=== PATIENT | female | born 1945 | race Caucasian/White ===

== ENCOUNTER 2019-02-02 15:02 | Outpatient (CLI) | payer MEDICARE ==
--- NOTE | 2019-02-02 15:47 | MMO ---
Bilateral MAMMO Bilat Screen [facility]. CLINICAL HISTORY: Patient is 73 years old and is seen for screening. The patient has the following family history of breast cancer: maternal aunt, great. The patient has a history of malignant (generic) in the right breast at age 54. The patient has a history of right Lumpectomy at age 54 - malignant. VIEWS: The views performed were: bilateral craniocaudal with tomosynthesis and bilateral mediolateral oblique with tomosynthesis. FILMS COMPARED: The present examination has been compared to prior imaging studies performed at [facility] on 02/20/2010 and 01/11/2012. This study has been interpreted with the assistance of computer-aided detection. MAMMOGRAM FINDINGS: The breasts are almost entirely fat. Finding 1: There are stable post operative changes seen in the right breast. Finding 2: There are stable benign appearing calcifications seen in both breasts. There are no suspicious masses, suspicious calcifications, or new areas of architectural distortion. IMPRESSION: THERE IS NO MAMMOGRAPHIC EVIDENCE OF MALIGNANCY. A ROUTINE FOLLOW-UP MAMMOGRAM IN 1 YEAR IS RECOMMENDED. THE RESULTS OF THIS EXAM WERE SENT TO THE PATIENT. ACR BI-RADS Category 2 - Benign finding MAMMOGRAPHY NOTE: 1. A negative mammogram report should not delay a biopsy if a dominant of clinically suspicious mass is present. 2. Approximately 10% to 15% of breast cancers are not detected by mammography. 3. Adenosis and dense breasts may obscure an underlying neoplasm. Reported by: MELLY DAWSON MD Electonically Signed: [id number]
== END 2019-02-02 15:03 | disposition home or self-care (01) ==
LOC: BICMAMMO 15:02
PROVIDERS: ATTEND Family Medicine
DX: Z12.31 Encounter for screening mammogram for malignant neoplasm of breast (principal); Z85.3 Personal history of malignant neoplasm of breast; Z80.3 Family history of malignant neoplasm of breast
CPT/HCPCS: 77063; 77067

== ENCOUNTER 2020-01-31 19:52 | Inpatient (IN) | payer MEDICARE ==
--- NOTE | 2020-01-31 21:08 | PDOC.HHP ---
Hospitalist HPI - History of Present Illness Fever History of Present Illness: PCP; Dr. Geoff Olivas The patient is a 74-year-old female with a past medical history significant for cardiac arrhythmia (SVT/atrial tachycardia), DM 2, hypothyroidism and lymphedema that presents to the emergency department via EMS as a transfer from [facility] for possible Covid pneumonia. The patient reports experiencing flulike symptoms for the past several days. She reports fever, T-max 102 Fahrenheit 2 days ago. Since her temperature has been trending down. Reports headache, all over, denies any known trauma, neck stiffness, changes in vision or focal motor weakness. Denies any known sick contacts. Reports nonproductive cough, and intermittent shortness of breath. Denies any wheezing, no history COPD/asthma. Reports anorexia, nausea and diarrhea. Reports 3-4 BMs per day. Denies any recent travel, hospitalization or antibiotics usage. Reports scant bright red blood on her briefs. Denies abdominal pain, vomiting, hematemesis or melena, lightheadedness or chest pain. She is not on any anticoagulation. Denies any chest pain, heart palpitations. Has chronic swelling to her lower extremities. Denies any dysuria or hematuria. ED Course: [place] [facility]: VITAL SIGNS WedJan 31, 2020 20:25 CURRY Mabry Miranda Resp: 20, Pain: 0, Time: 01/31/2020 20:25. VITAL SIGNS WedJan 31, 2020 20:29 CURRY Mabry Miranda Pulse: 113, Resp: 20, Pain: 0, O2 sat: 95 on (2L Oxygen), Time: 01/31/2020 20:29. VITAL SIGNS WedJan 31, 2020 20:29 CURRY Mabry Miranda Temp: 99.1 (Oral), Time: 01/31/2020 20:29. VITAL SIGNS WedJan 31, 2020 20:29 CURRY Mabry Miranda BP: 143/94, Time: 01/31/2020 20:29. VITAL SIGNS WedJan 31, 2020 21:04 CURRY Ricks Julia BP: 140/86, Pulse: 111, Resp: 20, Pain: 0, O2 sat: 97 on (2L Oxygen), Time: 01/31/2020 21:04. Medications: None Hospitalist ROS - Review of Systems All other systems reviewed; all pertinent +/- noted in HPI/Subj - Medication Medications: 1. Glyburide unknown dose 2. Januvia unknown dose 3. Metformin unknown dose 4. Levothyroxine 100 mcg p.o. daily 5. Citalopram 20 mg p.o. daily 6. Rosuvastatin 10 mg p.o. daily 7. Atenolol 50 mg p.o. daily. 8. Melatonin 3 mg p.o. nightly Allergies: latex, Mobic, naloxone HCl (Unconfirmed), niacin, Penicillins, pentazocine HCl (Unconfirmed), Talwin Hospitalist History - Past Medical History Source: patient, RN notes reviewed Cardiac: reports: Hyperlipidemia, Other (SVT and atrial tachycardia, venous insufficiency, lymphedema) Musculoskeletal: reports: Osteoarthritis Endocrine: reports: Diabetes (Type II), Hypothyroidism - Past Surgical History Past Surgical History: reports: Cataract Removal (Bilateral), Hysterectomy (Partial), Hernia Repair, Total Knee Replacement (Bilateral), Tubal Ligation, Other (Lumpectomy of right breast status post breast cancer) - Family History Other Family History: Noncontributory to this case - Social History Smoking Status: Former smoker (Quit greater than 30 years ago) Alcohol: reports: None Drugs: reports: none Living Situation: With Family Activity level: independent ambulation - Exam General Appearance: NAD, awake alert. negative: ill appearing Eye: anicteric sclera ENT: normocephalic atraumatic Neck: supple, symmetric Heart: RRR, no murmur, no gallops, no rubs, normal peripheral pulses Respiratory: no wheezes, no ronchi, no tachypnea, rales (Lower lobes) Gastrointestinal: soft, non-tender, normal bowel sounds, no bruit, no guarding, no rigidity Gastrointestinal - other findings: Negative Rovsing sign, negative Garland sign Extremities: no cyanosis, 1+ LE edema (Chronic) Skin: negative: no rashes Skin - other findings: Beneath bilateral breast and groin Neurological: no focal deficits Psychiatric: normal affect, A&O x 3 Hospitalist Results - EKG Interpretation EKG: EKG #1 sinus tachycardia. EKG #2 sinus rhythm - Radiology Interpretation Chest x-ray Status: report reviewed by me Additional Comment: Mild to moderate interstitial infiltrate CT scan - chest Status: pending, report reviewed by me Hospitalist H&P A/P - Problem (1) Pneumonia due to COVID-19 virus Code(s): U07.1 - COVID-19; J12.89 - OTHER VIRAL PNEUMONIA Status: Acute (2) Respiratory failure with hypoxia Code(s): J96.91 - RESPIRATORY FAILURE, UNSPECIFIED WITH HYPOXIA Status: Acute Qualifiers: Chronicity: acute Qualified Code(s): J96.01 - Acute respiratory failure with hypoxia (3) Sepsis Code(s): A41.9 - SEPSIS, UNSPECIFIED ORGANISM Status: Acute (4) DM2 (diabetes mellitus, type 2) Status: Chronic (5) Hypothyroidism Code(s): E03.9 - HYPOTHYROIDISM, UNSPECIFIED Status: Chronic (6) Arrhythmia Code(s): I49.9 - CARDIAC ARRHYTHMIA, UNSPECIFIED Status: Chronic (7) Depression Code(s): F32.9 - MAJOR DEPRESSIVE DISORDER, SINGLE EPISODE, UNSPECIFIED Status: Chronic - Plan Plan: 74/F with H cardiac arrhythmias, DM 2, hypothyroidism presents to the emergency department for Covid pneumonia. Admit to medical, inpatient status. Expected length of stay greater than 2 midnights. Presented hypotensive, tachycardic, tachypneic, hypoxic, afebrile. At [place] ER was 88% room air, 94% 2L NC. EKG sinus tach and sinus rhythm. CXR mild to moderate interstitial infiltrates CTA chest negative for PE, consistent for Covid pneumonia. Troponin 0.014 LA 1.5, DD 1.77, WBC 3.0, CRP 12.01 Blood/urine CX pending Covid positive #Pneumonia due to COVID-19 virus Continue a azithromycin and Rocephin. Continue dexamethasone and Lovenox. Start zinc and vitamin C. Isolation precautions. Consult ID. Oxygen as needed. Gentle IV fluids hydration. # Acute respiratory failure with hypoxia Likely related to problem #1 #Sepsis Likely related to problem #1 #DM2 Hold home oral antihyperglycemics. Start moderate ISS. AC/at bedtime checks. #Hypothyroidism Check TSH. Restart home dose of levothyroxine. #Arrhythmia History SVT and atrial tachycardia. Continue home dose atenolol. #Depression Denies SI/HI. Restart home dose citalopram. Lovenox for DVT prophylaxis. Pepcid for GI prophylaxis. Full code. Discussed the case with Dr. Mika Rodriguez.
[2020-01-31] MEDS ORDERED: Calcium Carbonate 500 MG ChewTAB PO PRN (21:30)
[2020-01-31] MEDS ORDERED: Ondansetron ODT 4 MG TAB PO PRN (21:30)
[2020-01-31] MEDS ORDERED: Ondansetron PF 4 MG/2 ML Vial IVP PRN (21:30)
[2020-01-31] MEDS ORDERED: Sodium Chloride 0.9% 1,000 ML IV SCH (21:30)
[2020-01-31 22:10] LABS: SARS-CoV-2 NAA Rapid Test DETECTED (NotDetected)
[2020-01-31] MEDS ORDERED: Dextrose 50% Abboject 50 ML SYRINGE SLOW IVP PRN (22:19)
[2020-01-31] MEDS ORDERED: Dextrose 5% in Water 1,000 ML IV PRN (22:19)
[2020-01-31 22:27] LABS: Troponin I 0.021 ng/mL (< 0.028)
[2020-01-31] MEDS ORDERED: Magnesium 2 GM/50 ML 2 GM in Premix Bag 1 BAG IVPB SCH (23:00)
[2020-02-01 02:11] LABS: Troponin I 0.013 ng/mL (< 0.028)
[2020-02-01] MEDS: HumaLOG 300 UNITS/3 ML VIAL SC PRN ×4 (06:43→21:36)
[2020-02-01 06:45] LABS: Mean Corpuscular HGB CONC 33.1 g/dL (32.0-36.0); Mean Corpuscular Hemoglobin 31.1 pg (27.0-31.0); Mean Corpuscular Volume 93.9 fL (78.0-98.0); Mean Platelet Volume 7.8 fL (7.4-10.4); Platelet Count 132 thou/uL (130-400); RBC Distribution Width 14.1 % (11.5-14.5); Red Blood Cell (RBC) Count 3.55 mill/uL (4.20-5.40); White Blood Cell (WBC) Count 1.6 thou/uL (4.8-10.8)
[2020-02-01 07:01] LABS: Anion Gap 17 mmol/L (10-20); BUN (Urea Nitrogen) 12 mg/dL (9.8-20.1); Calc. Creatinine Clearance 106 mL/min (70-130); Calcium 8.1 mg/dL (7.8-10.44); Carbon Dioxide 21 mmol/L (23-31); Chloride 100 mmol/L (98-107); Glucose 345 mg/dL (83-110); Potassium 3.9 mmol/L (3.5-5.1); Sodium 134 mmol/L (136-145)
[2020-02-01 07:04] LABS: Bacteria/HPF None Seen HPF (None Seen); Bilirubin Negative (Negative); Blood, Urine Negative (Negative); Clarity Clear (Clear); Glucose, Urine (Dipstick) Greater than 1000 mg/dL (Negative); Ketone, Urine 40 mg/dL (Negative); Leukocyte 25 Leu/uL (Negative); Nitrite Negative (Negative); Protein, Urine (Dipstick) Negative (Neg-Trace); RBC/HPF None Seen HPF (0-3); Specific Gravity, Urine 1.028 (1.002-1.036); Squamous Epithelial 0-3 HPF (0-3); Urobilinogen Normal mg/dL (Less than 2)
[2020-02-01 07:09] LABS: Troponin I Less than 0.010 ng/mL (< 0.028)
[2020-02-01] MEDS: Rosuvastatin 10 MG TAB PO SCH (08:35)
[2020-02-01] MEDS: Ascorbic Acid 500 mg Chewable Tablet PO SCH (08:36)
[2020-02-01] MEDS: Famotidine 20 MG TAB PO SCH ×2 (08:36→20:09)
[2020-02-01] MEDS: metFORMIN 500 MG TAB PO SCH ×2 (08:36→16:09)
[2020-02-01] MEDS: Citalopram 20 MG TAB PO SCH (08:36)
[2020-02-01] MEDS: Dexamethasone 4 mg/ml Vial SLOW IVP SCH (08:37)
[2020-02-01] MEDS: Enoxaparin Sodium 40 MG/0.4 ML SYRINGE SC SCH (08:37)
[2020-02-01] MEDS: Atenolol 50 MG TAB PO SCH (08:42)
[2020-02-01] MEDS ORDERED: Zinc Sulfate 220 MG CAP PO SCH (09:00)
[2020-02-01 09:02] LABS: #Lymphocytes 0.4 thou/uL (1.20-3.40); #Monocytes 0.1 thou/uL (0.11-0.59); #Neutrophils 1.1 thou/uL (1.40-6.50); %Basophils 0.1 % (0.0-1.0); %Eosinophils 0.2 % (0.0-10.0); %Lymphocytes 26.5 % (21.0-51.0); %Monocytes 4.2 % (0.0-10.0)
[2020-02-01 10:20] LABS: Reflex for Review?? YES
[2020-02-01 10:21] LABS: Band 14 % (5-11); Lymphocytes 23 % (21-51); MDiff Complete? YES; Monocytes 7 % (0-10); Neutrophil 54 % (42-75); RBC Morphology Normal; Reactive Lymphocytes 1 % (0-10)
[2020-02-01] MEDS ORDERED: Succinylcholine 200 MG/10 ml SYRINGE FS ONE (14:01)
[2020-02-01] MEDS ORDERED: PROPOFOL 200 MG/20 ML VIAL ONE (14:01)
--- NOTE | 2020-02-01 14:07 | PDOC.HOSPP ---
- Subjective Encounter Date: 02/01/20 Encounter Time: 10:00 Subjective: breathing better on nasal canula no fever now, is amb in room says she does not use assistive devices to mobilize - Objective Vital Signs & Weight: Vital Signs (12 hours) Temp Pulse Resp BP BP Pulse Ox 02/01/20 11:16 97.9 F 80 18 146/71 H 91 L 02/01/20 08:57 98.1 F 104 H 18 137/74 92 L 02/01/20 08:42 101 H 137/74 02/01/20 08:00 92 L 02/01/20 05:00 98.1 F 101 H 19 143/76 H 91 L Weight Weight 235 lb Result Diagrams: 02/01/20 05:55 02/01/20 05:55 Additional Labs: Accuchecks 02/01/20 02/01/20 11:03 06:31 POC Glucose 280 H 340 H Hospitalist ROS - Medication Medications: Active Medications Generic Name Dose Route Start Last Admin Trade Name Freq PRN Reason Stop Dose Admin Ascorbic Acid 1,000 mg 02/01/20 09:00 02/01/20 08:36 Ascorbic Acid 500 Mg Chewable Tablet PO 1,000 mg DAILY ARLEY Administration Atenolol 50 mg 02/01/20 09:00 02/01/20 08:42 Atenolol 50 Mg Tab PO 50 mg DAILY ARLEY Administration Citalopram Hydrobromide 20 mg 02/01/20 09:00 02/01/20 08:36 Citalopram 20 Mg Tab PO 20 mg DAILY ARLEY Administration Dexamethasone 6 mg 02/01/20 09:00 02/01/20 08:37 Dexamethasone 4 Mg/Ml Vial SLOW IVP 6 mg DAILY ARLEY Administration Enoxaparin Sodium 40 mg 02/01/20 09:00 02/01/20 08:37 Enoxaparin Sodium 40 Mg/0.4 Ml Syringe SC 40 mg 0900 ARLEY Administration Famotidine 20 mg 02/01/20 09:00 02/01/20 08:36 Famotidine 20 Mg Tab PO 20 mg BID ARLEY Administration Insulin Human Lispro 0 units 01/31/20 22:19 02/01/20 11:06 Humalog 300 Units/3 Ml Vial SC 6 unit .MODERATE SLIDING SC PRN Administration Moderate Correctional Scale Metformin HCl 1,000 mg 02/01/20 08:00 02/01/20 08:36 Metformin 500 Mg Tab PO 1,000 mg BID-WM ARLEY Administration Rosuvastatin Calcium 10 mg 02/01/20 09:00 02/01/20 08:35 Rosuvastatin 10 Mg Tab PO 10 mg DAILY ARLEY Administration Zinc Sulfate 220 mg 02/01/20 09:00 02/01/20 08:37 Zinc Sulfate 220 Mg Cap PO 220 mg DAILY ARLEY Administration - Exam General Appearance: awake alert Eye: PERRL, anicteric sclera ENT: no oropharyngeal lesions, moist mucosa Neck: supple, no JVD Heart: RRR, no murmur Respiratory: no wheezes, no rales, rhonchi Gastrointestinal: soft, non-tender, non-distended, normal bowel sounds Extremities: no cyanosis, no edema Neurological: cranial nerve grossly intact, no focal deficits Psychiatric: normal affect, A&O x 3 Hosp A/P (1) Pneumonia due to COVID-19 virus Code(s): U07.1 - COVID-19; J12.89 - OTHER VIRAL PNEUMONIA Status: Acute (2) Respiratory failure with hypoxia Code(s): J96.91 - RESPIRATORY FAILURE, UNSPECIFIED WITH HYPOXIA Status: Acute Qualifiers: Chronicity: acute Qualified Code(s): J96.01 - Acute respiratory failure with hypoxia (3) Obesity Code(s): E66.9 - OBESITY, UNSPECIFIED Status: Chronic Qualifiers: Obesity classification: adult class 3 (BMI >= 40) Body mass index: BMI 40.0-44.9 (4) Sepsis Code(s): A41.9 - SEPSIS, UNSPECIFIED ORGANISM Status: Acute Qualifiers: Sepsis acute organ dysfunction status: without acute organ dysfunction (5) DM2 (diabetes mellitus, type 2) Status: Chronic Qualifiers: Diabetes mellitus chcf insulin use: without chcf use (6) Depression Code(s): F32.9 - MAJOR DEPRESSIVE DISORDER, SINGLE EPISODE, UNSPECIFIED Status: Chronic Qualifiers: Depression Type: unspecified Qualified Code(s): F32.9 - Major depressive disorder, single episode, unspecified (7) Hypothyroidism Code(s): E03.9 - HYPOTHYROIDISM, UNSPECIFIED Status: Chronic - Plan is on nasal canula O2, dexamethasone, will start remdesivir (d/w and pharmacist ), alb inhaler one dose lantus for fingerstick >300, start home dose metformin, glimepride, januvia continue atenolol, crestor, citalopram, levothyroixin counselled to ambulate as tolerated, to lay on sides or prone hemostable
[2020-02-01] MEDS ORDERED: Insulin Glargine 20 UNITS in Pre-Filled Syringe 1 EACH SC SCH (15:00)
[2020-02-01] MEDS: Glimepiride 2 MG TAB PO SCH (15:24)
[2020-02-01] MEDS ORDERED: REMDESIVIR (EUA) 200 MG in Sodium Chloride 0.9% 250 ML 210 ML IV SCH (16:00)
[2020-02-01] MEDS: Guaifenesin DM 100-10/5 ML UDCUP PO PRN ×2 (16:09→20:28)
[2020-02-01] MEDS ORDERED: Azithromycin 500 MG in Sodium Chloride 0.9% 250 ML 250 ML IVPB SCH (18:00)
[2020-02-01] MEDS ORDERED: cefTRIAXone\\ROCEPHIN 1 GM in Sodium Chloride 0.9% 100 ML IVPB SCH (18:00)
[2020-02-01] MEDS ORDERED: Melatonin 3 MG TAB PO SCH (21:00)
--- NOTE | 2020-02-01 22:53 | CON ---
DATE OF CONSULTATION: 02/01/2020 REASON FOR CONSULT: COVID pneumonia. 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 She lives with her family in [place] and it appears to be the only affected member thus far. She is on treatment right now and feels dyspneic when she moves about her bed or tries to go to the restroom. No headaches, visual symptoms, sore throat, odynophagia, or dysphagia. Able to eat. Some anosmia. No chest pain. She has quite a bit of anorexia. No abdominal pain. No genitourinary symptoms. No joint symptoms or skin disorder. MEDICAL HISTORY: Obesity, type 2 diabetes, hyperlipidemia, hypothyroidism, and hypertension. ALLERGIES: 1. LATEX. 2. MOBIC. 3. NALOXONE. 4. NIACIN. 5. PENICILLIN. 6. PENTAZOCINE. FAMILY HISTORY: Nobody in the family has been diagnosed with COVID or is ill at this time. CURRENT MEDICATIONS: 1. Alogliptin. 2. Vitamin C. 3. Tenormin. 4. Tums. 5. Celexa. 6. Decadron. 7. Lovenox. 8. Pepcid. 9. Amaryl. 10. Insulin. 11. Synthroid. 12. Glucophage. 13. Zofran. 14. Remdesivir. 15. Crestor. PHYSICAL EXAMINATION: VITAL SIGNS: Normal temperature. She is breathing at 16 to 18 times a minute; O2 saturation was 91 on 2 L, went up to 3 L and went up to 94%, so I will keep her at 3 L for now; and BP 130/76. SKIN: Normal. Has a peripheral IV access. Voiding in the toilet. LYMPHATICS: No lymphadenopathy. HEENT: Noncontributory. LUNGS: Symmetric air entry. No obvious crackles or wheezing. HEART: S1, S2. Regular rate. No murmurs. No S3 or S4. ABDOMEN: Soft. Not distended or tender. No ascites. No bladder distention. EXTREMITIES: No joint inflammatory activity. No edema. Pulses 1+ in dorsalis pedis. NEUROLOGIC: Nonfocal. LABORATORY DATA: White cell count 1.6, hemoglobin 11, platelets 132 with 14% bands, 54% neutrophils, 23% lymphocytes, total neutrophil count 1.1, lymphocyte count 400. The previous neutrophil counts available in the record are within normal limits. Creatinine 0.78, ferritin 217. COVID PCR positive. Urinalysis, [address] angiogram with bilateral patchy ground-glass opacities, upper lobes, middle lobe, right side and lower lobe. ASSESSMENT: 1. Diabetes. 2. Hypertension. 3. Obesity with [id number] COVID pneumonia. Patient is at her 10th day of illness and has started Remdesivir yesterday and she is on Decadron and also Lovenox. We will monitor inflammatory markers daily and D-dimer. Job ID: [id number]
[2020-02-01] MEDS ORDERED: ALPRAZolam 0.25 MG TAB PO PRN (23:08)
[2020-02-02] MEDS: Guaifenesin DM 100-10/5 ML UDCUP PO PRN (02:04)
[2020-02-02] MEDS ORDERED: Lorazepam 2 MG/ML VIAL SLOW IVP SCH (02:15)
--- NOTE | 2020-02-02 02:15 | PDOC.EVN ---
Event Note - Event Note Event Note: Nursing called. Patient increasingly hypoxic and tachypneic, now on high flow, sp02 80s, RR 30s, anxious. Was on NC all day. Will get ABG, CXR and contact RT to manage/titrate high flow NC. Will give small dose ativan.
[2020-02-02 03:08] LABS: Actual Bicarbonate (HCO3a) 19.9 mEq/L (22-28); Base Excess (BEa) -3.6 mEq/L (-2.0 to +3.0); Calcium, Ionized (arterial) 1.11 mmol/L (1.12-1.30); Carboxyhemoglobin (COHb) 0.3 gm% (0.0-3.0); Hemoglobin (Hb) 11.9 g/dL (12.0-16.0); O2 Tension (PaO2), arterial 64.7 mmHg (> 70.0); Potassium - ABG Lab 3.63 mmol/L (3.70-5.30); pH, Arterial 7.43 (7.35-7.45)
[2020-02-02 03:16] LABS: Puncture Site LRA
[2020-02-02] MEDS ORDERED: Furosemide 40 MG/4 ML VIAL SLOW IVP SCH (04:00)
--- NOTE | 2020-02-02 04:00 | PDOC.EVN ---
Event Note - Event Note Event Note: Nursing called. Patient in resp distress. On high flow, RR 42, HR 110, 90% 40L/95%. Assessment patient somnolent, confused, follows commands, s/p ativan. EKG, CXR, ABG. Give lasix 20mg x 1 dose, transfer CCU for Bipap. Discussed with Dr. Mika Rodriguez.
[2020-02-02 05:25] LABS: Actual Bicarbonate (HCO3a) 26.6 mEq/L (22-28); Base Excess (BEa) 0.2 mEq/L (-2.0 to +3.0); CO2 Tension 50.3 mmHg (35.0-45.0); Calcium, Ionized (arterial) 1.11 mmol/L (1.12-1.30); Carboxyhemoglobin (COHb) 0.4 gm% (0.0-3.0); Hemoglobin (Hb) 12.7 g/dL (12.0-16.0); O2 Tension (PaO2), arterial 91.4 mmHg (> 70.0); pH, Arterial 7.34 (7.35-7.45)
[2020-02-02 05:27] LABS: ALV-art Gradient 487.425 mmHg (0-20); Puncture Site LRA
[2020-02-02] MEDS ORDERED: Lorazepam 2 MG/ML VIAL ONE (05:58)
[2020-02-02] MEDS: Lorazepam 2 MG/ML VIAL SLOW IVP PRN ×2 (06:02→07:06)
[2020-02-02] MEDS: HumaLOG 300 UNITS/3 ML VIAL SC PRN ×3 (07:33→15:34)
--- NOTE | 2020-02-02 08:03 | RAD ---
PORTABLE CHEST: HISTORY: Respiratory distress. COMPARISON: 01/31/2020. FINDINGS: Mild cardiomegaly and mild vascular congestion. There is hazy confluent infiltrate throughout the ri ght lung and in the left lower lung. Possible small left effusion. IMPRESSION: Evidence of hazy infiltrate superimposed on mild gastric congestion. POS: OFF
[2020-02-02] MEDS: Levothyroxine Sodium 100 MCG TAB PO SCH (08:32)
[2020-02-02] MEDS: Glimepiride 2 MG TAB PO SCH (08:33)
[2020-02-02] MEDS: Dexamethasone 4 mg/ml Vial SLOW IVP SCH (08:44)
[2020-02-02] MEDS: Enoxaparin Sodium 40 MG/0.4 ML SYRINGE SC SCH (08:44)
[2020-02-02] MEDS ORDERED: Insulin Glargine 20 UNITS in Pre-Filled Syringe 1 EACH SC SCH (08:51)
[2020-02-02] MEDS: Haloperidol Lactate 5 MG/ML VIAL SLOW IVP PRN (09:02)
[2020-02-02] MEDS: Alogliptin 6.25 MG TAB PO SCH (09:58)
[2020-02-02] MEDS: Ascorbic Acid 500 mg Chewable Tablet PO SCH (09:58)
[2020-02-02] MEDS: Citalopram 20 MG TAB PO SCH (09:59)
[2020-02-02] MEDS: Famotidine 20 MG TAB PO SCH ×2 (09:59→22:14)
[2020-02-02] MEDS: Atenolol 50 MG TAB PO SCH (09:59)
[2020-02-02] MEDS: Rosuvastatin 10 MG TAB PO SCH (10:05)
[2020-02-02] MEDS: metFORMIN 500 MG TAB PO SCH (10:41)
[2020-02-02] MEDS: Cefepime 1 GM in Sodium Chloride 0.9% 100 ML IVPB SCH ×2 (10:42→22:51)
[2020-02-02] MEDS: methylPREDNISolone Sod Succ 40 MG VIAL IVP SCH ×2 (11:02→17:25)
--- NOTE | 2020-02-02 13:51 | CON ---
DATE OF CONSULTATION: 02/02/2020 HISTORY OF PRESENT ILLNESS: Eber Mata is a 74-year-old female who has been in hospice for 2 days with progressive respiratory failure secondary to duffy positive pneumonia. She was seen by Infectious Disease yesterday. Last night, she was transferred to the ICU on BiPAP. She is presently on 90% FiO2, low PEEP of 5, saturations are 92%. She is having respiratory drive of at least 30 times a minute. She is clearly in respiratory distress. We are trying to contact family members, still unable to do so. PAST MEDICAL HISTORY: Pertinent for hypothyroidism, hyperlipidemia, high cholesterol, breast cancer, obesity. PREVIOUS SURGERIES: Include right and left knee surgery, tubal ligation, lumpectomy, cataract surgery, mastectomy, cholecystectomy. SOCIAL HISTORY: Tobacco, none. Alcohol, none. HOME MEDICATIONS: Includes 1. Januvia 5. 2. Glimepiride. 3. Lasix. 4. Flexeril. 5. Celexa. 6. Zyrtec. 7. Crestor. 8. Melatonin. 9. Synthroid. 10. She is now getting remdesivir as of this morning. She is already on high-dose steroids. ALLERGIES: PENICILLIN. POSITIVE ON 01/31/20. PHYSICAL EXAMINATION: VITAL SIGNS: Pulse 97, blood pressure 160/49. As noted, saturations are 99%, respirations 33. CHEST: Rhonchi without any wheezing. CARDIAC: Normal S1, S2. No gallops. ABDOMEN: No masses. LABORATORY DATA: PO2 is 91, pCO2 BiPAP 90%, PEEP of 5. X-ray, bilateral infiltrates. Additional lab shows glucose is elevated. White count is 1.6, H and H are 11 and 33, platelet count is normal. BUN and creatinine normal. ASSESSMENT: Duffy positive pneumonia, respiratory failure, morbid obesity, diabetes, breast cancer, low WBCs. PLAN: At this stage, she probably needs to be intubated. Added empiric antibiotics, continue remdesivir, consider a bag of convalescent plasma. 45 minutes critical care time. Job ID: [id number]
--- NOTE | 2020-02-02 14:46 | PDOC.HOSPP ---
- Subjective Encounter Date: 02/02/20 Encounter Time: 11:00 Subjective: got progressively sob and had to be placed on bipap and admitted to icu overnight is going to be intubated shortly by anesthesia team not oriented, tachypneic now, is trashing around - Objective Vital Signs & Weight: Vital Signs (12 hours) Temp Pulse Resp Pulse Ox 02/02/20 12:00 99.5 F 02/02/20 10:19 102 H 37 H 96 02/02/20 09:59 109 H 02/02/20 08:32 109 H 35 H 96 02/02/20 08:00 101.0 F H 98 02/02/20 05:09 134 H 39 H 96 02/02/20 04:00 94 L Weight Weight 235 lb Most Recent Monitor Data Heart Rate from ECG 88 NIBP 131/55 NIBP BP-Mean 80 Respiration from ECG 33 SpO2 94 I&O: 02/01/20 02/02/20 02/03/20 06:59 06:59 06:59 Intake Total 1210 100 Output Total 395 Balance 1210 -295 Result Diagrams: 02/01/20 05:55 02/01/20 05:55 Additional Labs: Accuchecks 02/02/20 02/02/20 02/01/20 11:18 07:08 20:27 POC Glucose 267 H 238 H 215 H 02/01/20 15:30 POC Glucose 336 H Hospitalist ROS - Medication Medications: Active Medications Generic Name Dose Route Start Last Admin Trade Name Freq PRN Reason Stop Dose Admin Alogliptin Benzoate 12.5 mg 02/02/20 09:00 02/02/20 09:58 Alogliptin 6.25 Mg Tab PO Not Given DAILY ARLEY Alprazolam 0.25 mg 02/01/20 23:08 02/01/20 23:20 Alprazolam 0.25 Mg Tab PO 0.25 mg TIDPRN PRN Administration Anxiety Ascorbic Acid 1,000 mg 02/01/20 09:00 02/02/20 09:58 Ascorbic Acid 500 Mg Chewable Tablet PO Not Given DAILY ARLEY Atenolol 50 mg 02/01/20 09:00 02/02/20 09:59 Atenolol 50 Mg Tab PO Not Given DAILY ARLEY Citalopram Hydrobromide 20 mg 02/01/20 09:00 02/02/20 09:59 Citalopram 20 Mg Tab PO Not Given DAILY [facility] Enoxaparin Sodium 40 mg 02/01/20 09:00 02/02/20 08:44 Enoxaparin Sodium 40 Mg/0.4 Ml Syringe SC 40 mg 0900 ARLEY Administration Famotidine 20 mg 02/01/20 09:00 02/02/20 09:59 Famotidine 20 Mg Tab PO Not Given BID ARLEY Guaifenesin/Dextromethorphan 15 ml 01/31/20 21:30 02/02/20 02:04 Guaifenesin Dm 100-10/5 Ml Udcup PO 15 ml Q4H PRN Administration Cough Haloperidol Lactate 5 mg 02/02/20 08:47 02/02/20 09:02 Haloperidol Lactate 5 Mg/Ml Vial SLOW IVP 5 mg Q4H PRN Administration Agitation Cefepime HCl 1 gm/ Sodium 100 mls @ 200 mls/hr 02/02/20 10:00 02/02/20 10:42 Chloride IVPB 100 mls 1000,2200 ARLEY Administration Insulin Human Lispro 0 units 01/31/20 22:19 02/02/20 11:24 Humalog 300 Units/3 Ml Vial SC 6 unit .MODERATE SLIDING SC PRN Administration Moderate Correctional Scale Insulin Human Lispro 0 units 01/31/20 22:19 02/01/20 21:36 Humalog 300 Units/3 Ml Vial SC 2 unit .BEDTIME SLIDING SC PRN Administration Bedtime Correctional Scale Levothyroxine Sodium 100 mcg 02/02/20 06:00 02/02/20 08:32 Levothyroxine Sodium 100 Mcg Tab PO Not Given 0600 [facility] Methylprednisolone Sodium Succinate 40 mg 02/02/20 12:00 02/02/20 11:02 Methylprednisolone Sod Succ 40 Mg Vial IVP 40 mg Q6HR ARLEY Administration Quetiapine Fumarate 25 mg 02/02/20 09:00 02/02/20 10:01 Quetiapine Fumarate 25 Mg Tab PO Not Given BID [facility] Rosuvastatin Calcium 10 mg 02/01/20 09:00 02/02/20 10:05 Rosuvastatin 10 Mg Tab PO Not Given DAILY ARLEY - Exam General Appearance: ill appearing Eye: PERRL, anicteric sclera ENT: no oropharyngeal lesions, dry oral mucosa Neck: supple, no JVD Heart: RRR, no murmur Respiratory: no wheezes, rales, rhonchi Gastrointestinal: soft, non-tender, non-distended, normal bowel sounds Extremities: no cyanosis, no edema Neurological: cranial nerve grossly intact, no focal deficits Hosp A/P (1) Pneumonia due to COVID-19 virus Code(s): U07.1 - COVID-19; J12.89 - OTHER VIRAL PNEUMONIA Status: Acute (2) Respiratory failure with hypoxia Code(s): J96.91 - RESPIRATORY FAILURE, UNSPECIFIED WITH HYPOXIA Status: Acute Qualifiers: Chronicity: acute Qualified Code(s): J96.01 - Acute respiratory failure with hypoxia (3) Obesity Code(s): E66.9 - OBESITY, UNSPECIFIED Status: Chronic Qualifiers: Obesity classification: adult class 3 (BMI >= 40) Body mass index: BMI 40.0-44.9 (4) Sepsis Code(s): A41.9 - SEPSIS, UNSPECIFIED ORGANISM Status: Acute Qualifiers: Sepsis acute organ dysfunction status: without acute organ dysfunction (5) DM2 (diabetes mellitus, type 2) Status: Chronic Qualifiers: Diabetes mellitus press tender long goods insulin use: without fdc use (6) Depression Code(s): F32.9 - MAJOR DEPRESSIVE DISORDER, SINGLE EPISODE, UNSPECIFIED Status: Chronic Qualifiers: Depression Type: unspecified Qualified Code(s): F32.9 - Major depressive disorder, single episode, unspecified (7) Hypothyroidism Code(s): E03.9 - HYPOTHYROIDISM, UNSPECIFIED Status: Chronic - Plan is on steroids, remdesivir (d/w and pharmacist ), nebs d/w over phone, he wants her to have a chance on vent and see if she turns around, if she gets worse he will likely go for withdrawal of care/comfort measures. continue atenolol, crestor, citalopram, levothyroixine prognosis guarded appreciate 's help hemostable
[2020-02-02] MEDS: REMDESIVIR (EUA) 100 MG in Sodium Chloride 0.9% 250 ML 230 ML IV SCH (17:25)
[2020-02-02] MEDS ORDERED: Sodium Chloride 0.9% 1,000 ML IV SCH (17:30)
[2020-02-02] MEDS: Sodium Chloride 0.9% 1,000 ML IV SCH (17:31)
[2020-02-03] MEDS: methylPREDNISolone Sod Succ 40 MG VIAL IVP SCH ×5 (00:10→22:51)
[2020-02-03] MEDS: Insulin Glargine 20 UNITS in Pre-Filled Syringe 1 EACH SC SCH ×3 (00:10→21:46)
[2020-02-03 04:16] LABS: ALT (SGPT) 11 U/L (8-55); AST (SGOT) 27 U/L (5-34); Albumin 3.3 g/dL (3.4-4.8); Alkaline Phosphatase 49 U/L (40-110); Bilirubin, Direct 0.2 mg/dL (0.1-0.3); Bilirubin, Total 0.4 mg/dL (0.2-1.2)
[2020-02-03] MEDS: Levothyroxine Sodium 100 MCG TAB PO SCH (06:23)
[2020-02-03] MEDS: Sodium Chloride 0.9% 1,000 ML IV SCH (07:50)
--- NOTE | 2020-02-03 07:55 | RAD ---
Chest one view HISTORY: Dyspnea. Follow-up. COMPARISON: 02/02/2020. FINDINGS: Cardiac silhouette is magnified by projection and upper limits of normal in size. Pulmonary vasculature remains engorged. Extensive widespread reticulonodular infiltrate throughout each lung is similar in appearance to the prior exam. Relative sparing of the left upper lobe. Calcified mediastinal lymph nodes and aortic calcification again demonstrated. Old right rib fracture s. Metallic clips at the right axilla. No evidence of pneumothorax. IMPRESSION : Dense widespread infiltrates and other findings are stable.
[2020-02-03] MEDS: Cefepime 1 GM in Sodium Chloride 0.9% 100 ML IVPB SCH ×2 (10:01→21:46)
[2020-02-03] MEDS: Enoxaparin Sodium 40 MG/0.4 ML SYRINGE SC SCH (10:02)
[2020-02-03] MEDS: HumaLOG 300 UNITS/3 ML VIAL SC PRN ×3 (10:19→22:05)
[2020-02-03] MEDS: Atenolol 50 MG TAB PO SCH (10:21)
--- NOTE | 2020-02-03 10:24 | PRG ---
DATE OF SERVICE: 02/03/2020 SUBJECTIVE: A 74-year-old obese female. OBJECTIVE: VITAL SIGNS: Temperature 98, pulse 79, respiratory rate 5, sats are 90% on BiPAP, 80% of FiO2, blood pressure . GENERAL: She is still agitated, but less so. CHEST: Decreased breath sounds. No wheezing. CARDIAC: Normal S1, S2. No masses. DIAGNOSTIC DATA: X-ray shows infiltrates. White count is 1.6, H and H , platelet count is normal. ASSESSMENT: Thurman positive pneumonia, respiratory failure, encephalopathy. PLAN: Try high-flow. If she is able to tolerate it, to maintain a sat of 80% to 90%. Otherwise, continue all supportive care. Steroids, remdesivir. We will follow while in the ICU. Job ID: [id number]
[2020-02-03] MEDS: Alogliptin 6.25 MG TAB PO SCH (10:49)
[2020-02-03] MEDS: Ascorbic Acid 500 mg Chewable Tablet PO SCH (10:50)
[2020-02-03] MEDS: Rosuvastatin 10 MG TAB PO SCH (10:50)
[2020-02-03] MEDS: Citalopram 20 MG TAB PO SCH (10:50)
[2020-02-03] MEDS: Famotidine 20 MG TAB PO SCH ×2 (12:01→22:35)
--- NOTE | 2020-02-03 12:37 | PDOC.HOSPP ---
- Subjective Encounter Date: 02/03/20 Encounter Time: 11:00 Subjective: Patient seen and examined bedside today, patient is on BiPAP, overall patient is doing same as yesterday - Objective Vital Signs & Weight: Vital Signs (12 hours) Temp Pulse Resp BP Pulse Ox 02/03/20 10:21 83 156/66 H 02/03/20 10:17 83 30 H 87 L 02/03/20 08:00 93 L 02/03/20 07:56 79 25 H 94 L 02/03/20 07:00 97.7 F 02/03/20 01:41 66 25 H 95 Weight Weight 235 lb Most Recent Monitor Data Heart Rate from ECG 68 NIBP 147/54 NIBP BP-Mean 85 Respiration from ECG 24 SpO2 92 I&O: 02/02/20 02/03/20 02/04/20 06:59 06:59 06:59 Intake Total 1210 1310 150 Output Total 1165 170 Balance 1210 145 -20 Result Diagrams: 02/01/20 05:55 02/01/20 05:55 Additional Labs: Accuchecks 02/03/20 02/02/20 10:16 23:05 POC Glucose 266 H 298 H Radiology Reviewed by me: Yes EKG Reviewed by me: Yes Hospitalist ROS - Review of Systems ROS unobtainable: due to mental status - Medication Medications: Active Medications Generic Name Dose Route Start Last Admin Trade Name Freq PRN Reason Stop Dose Admin Alogliptin Benzoate 12.5 mg 02/02/20 09:00 02/03/20 10:49 Alogliptin 6.25 Mg Tab PO Not Given DAILY ARLEY Alprazolam 0.25 mg 02/01/20 23:08 02/01/20 23:20 Alprazolam 0.25 Mg Tab PO 0.25 mg TIDPRN PRN Administration Anxiety Ascorbic Acid 1,000 mg 02/01/20 09:00 02/03/20 10:50 Ascorbic Acid 500 Mg Chewable Tablet PO Not Given DAILY ARLEY Atenolol 50 mg 02/01/20 09:00 02/03/20 10:21 Atenolol 50 Mg Tab PO 50 mg DAILY ARLEY Administration Citalopram Hydrobromide 20 mg 02/01/20 09:00 02/03/20 10:50 Citalopram 20 Mg Tab PO Not Given DAILY ARLEY Enoxaparin Sodium 40 mg 02/01/20 09:00 02/03/20 10:02 Enoxaparin Sodium 40 Mg/0.4 Ml Syringe SC 40 mg 0900 ARLEY Administration Famotidine 20 mg 02/01/20 09:00 02/03/20 12:01 Famotidine 20 Mg Tab PO Not Given BID ARLEY Guaifenesin/Dextromethorphan 15 ml 01/31/20 21:30 02/02/20 02:04 Guaifenesin Dm 100-10/5 Ml Udcup PO 15 ml Q4H PRN Administration Cough Haloperidol Lactate 5 mg 02/02/20 08:47 02/02/20 09:02 Haloperidol Lactate 5 Mg/Ml Vial SLOW IVP 5 mg Q4H PRN Administration Agitation Remdesivir 100 mg/ Sodium 250 mls @ 250 mls/hr 02/02/20 16:00 02/02/20 17:25 Chloride IV 02/05/20 16:59 250 mls 1600 ARLEY Administration Insulin Glargine 20 units/ 0.2 mls @ 0 mls/hr 02/02/20 21:00 02/03/20 10:18 Miscellaneous Medication SC 0.2 mls BID ARLEY Administration Cefepime HCl 1 gm/ Sodium 100 mls @ 200 mls/hr 02/02/20 10:00 02/03/20 10:01 Chloride IVPB 100 mls 1000,2200 ARLEY Administration Dexmedetomidine HCl 400 mcg/ 100 mls @ 0 mls/hr 02/02/20 14:45 02/02/20 15:29 Sodium Chloride IVPB 100 mls INF ARLEY Administration Protocol Titrate Insulin Human Lispro 0 units 01/31/20 22:19 02/03/20 10:19 Humalog 300 Units/3 Ml Vial SC 6 unit .MODERATE SLIDING SC PRN Administration Moderate Correctional Scale Insulin Human Lispro 0 units 01/31/20 22:19 02/01/20 21:36 Humalog 300 Units/3 Ml Vial SC 2 unit .BEDTIME SLIDING SC PRN Administration Bedtime Correctional Scale Methylprednisolone Sodium Succinate 40 mg 02/02/20 12:00 02/03/20 12:02 Methylprednisolone Sod Succ 40 Mg Vial IVP 40 mg Q6HR ARLEY Administration Quetiapine Fumarate 25 mg 02/02/20 09:00 02/03/20 10:22 Quetiapine Fumarate 25 Mg Tab PO 25 mg BID ARLEY Administration Rosuvastatin Calcium 10 mg 02/01/20 09:00 02/03/20 10:50 Rosuvastatin 10 Mg Tab PO Not Given DAILY ARLEY - Exam General Appearance: NAD, awake alert Eye: PERRL, anicteric sclera ENT: normocephalic atraumatic, no oropharyngeal lesions Neck: symmetric, no JVD Heart: RRR, no murmur, no gallops, no rubs Respiratory - other findings: Bilateral coarse breath sound, air entry reduced at base, Gastrointestinal: soft, non-tender, non-distended, normal bowel sounds Extremities: no cyanosis, no clubbing, no edema Skin: normal turgor, no lesions Musculoskeletal: normal tone, normal strength Psychiatric: normal affect Hosp A/P (1) Pneumonia due to COVID-19 virus Code(s): U07.1 - COVID-19; J12.89 - OTHER VIRAL PNEUMONIA Status: Acute (2) Respiratory failure with hypoxia Code(s): J96.91 - RESPIRATORY FAILURE, UNSPECIFIED WITH HYPOXIA Status: Acute Qualifiers: Chronicity: acute Qualified Code(s): J96.01 - Acute respiratory failure with hypoxia (3) Sepsis Code(s): A41.9 - SEPSIS, UNSPECIFIED ORGANISM Status: Acute Qualifiers: Sepsis acute organ dysfunction status: with acute organ dysfunction Severe sepsis acute organ dysfunction type: acute respiratory failure Acute respiratory failure type: with hypoxia Severe sepsis shock status: without septic shock (4) DM2 (diabetes mellitus, type 2) Status: Chronic Qualifiers: Diabetes mellitus fpc insulin use: with termite control representative use Diabetes mellitus complication status: with hyperglycemia Qualified Code(s): E11.65 - Type 2 diabetes mellitus with hyperglycemia; Z79.4 - snf (current) use of insulin (5) Depression Code(s): F32.9 - MAJOR DEPRESSIVE DISORDER, SINGLE EPISODE, UNSPECIFIED Status: Chronic Qualifiers: Depression Type: unspecified Qualified Code(s): F32.9 - Major depressive disorder, single episode, unspecified (6) Hypothyroidism Code(s): E03.9 - HYPOTHYROIDISM, UNSPECIFIED Status: Chronic Qualifiers: Hypothyroidism type: unspecified Qualified Code(s): E03.9 - Hypothyroidism, unspecified (7) Obesity Code(s): E66.9 - OBESITY, UNSPECIFIED Status: Chronic Qualifiers: Obesity classification: adult class 3 (BMI >= 40) Body mass index: BMI 40.0-44.9 (8) Dyslipidemia Code(s): E78.5 - HYPERLIPIDEMIA, UNSPECIFIED Status: Chronic - Plan old records reviewed/req, continue antibiotics Continue BiPAP as tolerated, will try to change to high flow oxygen as tolerated We will closely monitor in ICU for any further deterioration Pulmonology recommendation appreciated Currently patient is on cefepime, add med Solu-Medrol, Continue remdesivir We will change IV levothyroxine Medication reviewed and continue provide symptomatic and supportive care We will discontinue IV fluid We will repeat labs tomorrow
[2020-02-03] MEDS: REMDESIVIR (EUA) 100 MG in Sodium Chloride 0.9% 250 ML 230 ML IV SCH (15:35)
[2020-02-03] MEDS ORDERED: Clopidogrel Bisulfate 75 MG TAB ONE (21:07)
[2020-02-04] MEDS: Haloperidol Lactate 5 MG/ML VIAL SLOW IVP PRN ×2 (02:44→11:01)
[2020-02-04] MEDS ORDERED: Lorazepam 2 MG/ML VIAL SLOW IVP SCH (04:45)
[2020-02-04] MEDS: Levothyroxine 100 MCG SDV IVP SCH (04:50)
[2020-02-04] MEDS: methylPREDNISolone Sod Succ 40 MG VIAL IVP SCH ×3 (04:50→16:45)
[2020-02-04] MEDS: HumaLOG 300 UNITS/3 ML VIAL SC PRN ×4 (05:05→22:36)
[2020-02-04 08:09] LABS: #Lymphocytes 0.4 thou/uL (1.20-3.40); #Monocytes 0.3 thou/uL (0.11-0.59); #Neutrophils 6.3 thou/uL (1.40-6.50); %Eosinophils 0.1 % (0.0-10.0); %Lymphocytes 5.2 % (21.0-51.0); %Monocytes 3.9 % (0.0-10.0); %Neutrophils 90.9 % (42.0-75.0); Hemoglobin 11.7 g/dL (12.0-16.0); Mean Corpuscular HGB CONC 32.2 g/dL (32.0-36.0); Mean Corpuscular Hemoglobin 30.1 pg (27.0-31.0); Mean Corpuscular Volume 93.6 fL (78.0-98.0); Mean Platelet Volume 7.7 fL (7.4-10.4); Platelet Count 200 thou/uL (130-400); RBC Distribution Width 14.1 % (11.5-14.5); White Blood Cell (WBC) Count 6.9 thou/uL (4.8-10.8)
[2020-02-04 08:30] LABS: ALT (SGPT) 10 U/L (8-55); AST (SGOT) 23 U/L (5-34); Albumin 3.2 g/dL (3.4-4.8); Alkaline Phosphatase 59 U/L (40-110); Anion Gap 15 mmol/L (10-20); BUN (Urea Nitrogen) 26 mg/dL (9.8-20.1); Bilirubin, Direct 0.2 mg/dL (0.1-0.3); Bilirubin, Total 0.4 mg/dL (0.2-1.2); Calc. Creatinine Clearance 112 mL/min (70-130); Calcium 8.7 mg/dL (7.8-10.44); Carbon Dioxide 25 mmol/L (23-31); Chloride 111 mmol/L (98-107); Glucose 247 mg/dL (83-110); Potassium 3.9 mmol/L (3.5-5.1); Sodium 147 mmol/L (136-145)
[2020-02-04] MEDS: Enoxaparin Sodium 40 MG/0.4 ML SYRINGE SC SCH (08:38)
[2020-02-04] MEDS: Cefepime 1 GM in Sodium Chloride 0.9% 100 ML IVPB SCH ×2 (08:39→21:47)
[2020-02-04] MEDS: Famotidine 20 MG TAB PO SCH ×2 (08:39→21:47)
[2020-02-04] MEDS: Insulin Glargine 20 UNITS in Pre-Filled Syringe 1 EACH SC SCH ×2 (08:39→21:47)
[2020-02-04] MEDS: Citalopram 20 MG TAB PO SCH (08:39)
[2020-02-04] MEDS: Rosuvastatin 10 MG TAB PO SCH (08:40)
[2020-02-04] MEDS: Alogliptin 6.25 MG TAB PO SCH (08:40)
[2020-02-04] MEDS: Ascorbic Acid 500 mg Chewable Tablet PO SCH (08:40)
[2020-02-04] MEDS: Atenolol 50 MG TAB PO SCH (08:40)
--- NOTE | 2020-02-04 08:44 | RAD ---
Chest one view HISTORY: Pneumonia. Follow-up. COMPARISON: 02/03/2020. FINDINGS: Cardiac silhouette is magnified by projection and partially obscured by dense infiltrates t hroughout each lung, right greater than left, that have worsened somewhat since the prior study. Hemidiaphragms now more obscured. Mediastinum is midline with aortic calcification. No evidence of pneumothorax. IMPRESSION : Interval radiographic worsening of dense bilateral infiltrates.
--- NOTE | 2020-02-04 10:06 | PRG ---
DATE OF SERVICE: 02/04/2020 OBJECTIVE: VITAL SIGNS: A 74-year-old female, morbidly obese, 235 pounds, 5 feet 4 inches, remains on BiPAP 100%, low PEEP of 10, with a temperature of 98.7, pulse 60, blood pressure 149/72, sats are barely 94%. CHEST: Decreased breath sounds. No wheezing. CARDIAC: Normal S1 . IMAGING STUDIES: X-ray shows worsening pulmonary infiltrates. C-reactive protein is 9.8. Thyroid function is normal. IMPRESSION: Respiratory failure, duffy positive pneumonia, morbid obesity, encephalopathy. PLAN: I discussed with the at length this morning, he wants everything to be done including intubation and support for the initial several days. I am going to hold off intubation until the sats drop less than 90%. She is pretty close to it. In the meantime, continue with high-dose steroids, supportive care. She is already getting remdesivir. One-half hour of critical care time. Job ID: [id number]
--- NOTE | 2020-02-04 12:37 | PDOC.HOSPP ---
- Subjective Encounter Date: 02/04/20 Encounter Time: 10:15 Subjective: Patient is requiring BiPAP this morning, no overnight event, - Objective Vital Signs & Weight: Vital Signs (12 hours) Temp Pulse Resp Pulse Ox 02/04/20 12:00 98.3 F 02/04/20 10:37 67 31 H 92 L 02/04/20 08:40 60 02/04/20 08:00 97.8 F 92 L 02/04/20 07:06 60 23 H 92 L 02/04/20 04:00 98.4 F 02/04/20 02:31 63 20 92 L Weight Weight 235 lb Most Recent Monitor Data Heart Rate from ECG 58 NIBP 159/69 NIBP BP-Mean 99 Respiration from ECG 24 SpO2 92 I&O: 02/03/20 02/04/20 02/05/20 06:59 06:59 06:59 Intake Total 1310 1375 100 Output Total 1165 1020 215 Balance 145 355 -115 Result Diagrams: 02/04/20 07:43 02/04/20 07:43 Additional Labs: Accuchecks 02/04/20 02/04/20 02/03/20 11:07 04:59 21:53 POC Glucose 201 H 259 H 252 H Radiology Reviewed by me: Yes (Chest x-ray reviewed) EKG Reviewed by me: Yes Hospitalist ROS - Review of Systems ROS unobtainable: due to mental status - Medication Medications: Active Medications Generic Name Dose Route Start Last Admin Trade Name Freq PRN Reason Stop Dose Admin Alogliptin Benzoate 12.5 mg 02/02/20 09:00 02/04/20 08:40 Alogliptin 6.25 Mg Tab PO Not Given DAILY ARLEY Alprazolam 0.25 mg 02/01/20 23:08 02/01/20 23:20 Alprazolam 0.25 Mg Tab PO 0.25 mg TIDPRN PRN Administration Anxiety Ascorbic Acid 1,000 mg 02/01/20 09:00 02/04/20 08:40 Ascorbic Acid 500 Mg Chewable Tablet PO Not Given DAILY ARLEY Atenolol 50 mg 02/01/20 09:00 02/04/20 08:40 Atenolol 50 Mg Tab PO Not Given DAILY ARLEY Citalopram Hydrobromide 20 mg 02/01/20 09:00 02/04/20 08:39 Citalopram 20 Mg Tab PO Not Given DAILY ARLEY Enoxaparin Sodium 40 mg 02/01/20 09:00 02/04/20 08:38 Enoxaparin Sodium 40 Mg/0.4 Ml Syringe SC 40 mg 0900 ARLEY Administration Famotidine 20 mg 02/01/20 09:00 02/04/20 08:39 Famotidine 20 Mg Tab PO Not Given BID ARLEY Guaifenesin/Dextromethorphan 15 ml 01/31/20 21:30 02/02/20 02:04 Guaifenesin Dm 100-10/5 Ml Udcup PO 15 ml Q4H PRN Administration Cough Haloperidol Lactate 5 mg 02/02/20 08:47 02/04/20 11:01 Haloperidol Lactate 5 Mg/Ml Vial SLOW IVP 5 mg Q4H PRN Administration Agitation Remdesivir 100 mg/ Sodium 250 mls @ 250 mls/hr 02/02/20 16:00 02/03/20 15:35 Chloride IV 02/05/20 16:59 250 mls 1600 ARLEY Administration Insulin Glargine 20 units/ 0.2 mls @ 0 mls/hr 02/02/20 21:00 02/04/20 08:39 Miscellaneous Medication SC 0.2 mls BID ARLEY Administration Cefepime HCl 1 gm/ Sodium 100 mls @ 200 mls/hr 02/02/20 10:00 02/04/20 08:39 Chloride IVPB 100 mls 1000,2200 ARLEY Administration Dexmedetomidine HCl 400 mcg/ 100 mls @ 0 mls/hr 02/02/20 14:45 02/04/20 11:33 Sodium Chloride IVPB 100 mls INF ARLEY Administration Protocol Titrate Insulin Human Lispro 0 units 01/31/20 22:19 02/04/20 11:29 Humalog 300 Units/3 Ml Vial SC 4 unit .MODERATE SLIDING SC PRN Administration Moderate Correctional Scale Insulin Human Lispro 0 units 01/31/20 22:19 02/01/20 21:36 Humalog 300 Units/3 Ml Vial SC 2 unit .BEDTIME SLIDING SC PRN Administration Bedtime Correctional Scale Levothyroxine Sodium 100 mcg 02/04/20 06:00 02/04/20 04:50 Levothyroxine 100 Mcg Sdv IVP 100 mcg 0600 ARLEY Administration Methylprednisolone Sodium Succinate 40 mg 02/02/20 12:00 02/04/20 11:01 Methylprednisolone Sod Succ 40 Mg Vial IVP 40 mg Q6HR ARLEY Administration Quetiapine Fumarate 25 mg 02/02/20 09:00 02/04/20 08:39 Quetiapine Fumarate 25 Mg Tab PO 25 mg BID ARLEY Administration Rosuvastatin Calcium 10 mg 02/01/20 09:00 02/04/20 08:40 Rosuvastatin 10 Mg Tab PO Not Given DAILY ARLEY - Exam General Appearance: ill appearing General - other findings: On BiPAP Eye: PERRL ENT: normocephalic atraumatic, no oropharyngeal lesions Neck: supple, symmetric, no JVD Heart: RRR, no murmur, no gallops Respiratory - other findings: Bilateral coarse breath sound, air entry reduced, Gastrointestinal: soft, non-distended, normal bowel sounds, no palpable masses Extremities: no clubbing, no edema Skin: normal turgor Psychiatric: normal affect Hosp A/P (1) Pneumonia due to COVID-19 virus Code(s): U07.1 - COVID-19; J12.89 - OTHER VIRAL PNEUMONIA Status: Acute (2) Respiratory failure with hypoxia Code(s): J96.91 - RESPIRATORY FAILURE, UNSPECIFIED WITH HYPOXIA Status: Acute Qualifiers: Chronicity: acute Qualified Code(s): J96.01 - Acute respiratory failure with hypoxia (3) Sepsis Code(s): A41.9 - SEPSIS, UNSPECIFIED ORGANISM Status: Acute Qualifiers: Sepsis acute organ dysfunction status: with acute organ dysfunction Severe sepsis acute organ dysfunction type: acute respiratory failure Acute respiratory failure type: with hypoxia Severe sepsis shock status: without septic shock (4) DM2 (diabetes mellitus, type 2) Status: Chronic Qualifiers: Diabetes mellitus fci insulin use: with fci use Diabetes mellitus complication status: with hyperglycemia Qualified Code(s): E11.65 - Type 2 diabetes mellitus with hyperglycemia; Z79.4 - medical terminologist (current) use of insulin (5) Depression Code(s): F32.9 - MAJOR DEPRESSIVE DISORDER, SINGLE EPISODE, UNSPECIFIED Status: Chronic Qualifiers: Depression Type: unspecified Qualified Code(s): F32.9 - Major depressive disorder, single episode, unspecified (6) Hypothyroidism Code(s): E03.9 - HYPOTHYROIDISM, UNSPECIFIED Status: Chronic Qualifiers: Hypothyroidism type: unspecified Qualified Code(s): E03.9 - Hypothyroidism, unspecified (7) Obesity Code(s): E66.9 - OBESITY, UNSPECIFIED Status: Chronic Qualifiers: Obesity classification: adult class 3 (BMI >= 40) Body mass index: BMI 40.0-44.9 (8) Dyslipidemia Code(s): E78.5 - HYPERLIPIDEMIA, UNSPECIFIED Status: Chronic - Plan old records reviewed/req, plan discussed w/ family, luna catheter, continue antibiotics, respiratory therapy Continue BiPAP as tolerated, will try to change to high flow oxygen as tolerated We will closely monitor in ICU for any further deterioration Pulmonology recommendation appreciated Continue cefepime, Solu-Medrol Continue remdesivir Medication reviewed and continue provide symptomatic and supportive care Monitor labs
[2020-02-04] MEDS ORDERED: Propofol 1,000 MG/100 ML VIAL IV ONE (14:24)
[2020-02-04] MEDS ORDERED: Propofol BOLUS 1,000 MG/100 ML VIAL IV PRN (14:30)
[2020-02-04] MEDS ORDERED: Fentanyl BOLUS 250 ML IVPB PRN (14:30)
[2020-02-04] MEDS ORDERED: Morphine 2 MG/ML VIAL SLOW IVP PRN (14:30)
[2020-02-04] MEDS ORDERED: DISCONTINUE PREVIOUS NARCOTIC PAIN MEDICATIONS AND BENZODIAZEPINES FS SCH (14:30)
[2020-02-04] MEDS ORDERED: Ventilator Sedation Protocol 1 EACH FS SCH (14:30)
--- NOTE | 2020-02-04 14:39 | PRG ---
DATE OF SERVICE: 02/04/2020 SUBJECTIVE: Oxygen saturations on almost 100% FiO2 are fluctuating in the 80s and barely 90 to 91, pulse 63, blood pressure 104/63, respiratory rate 27. Family wanted everything to be done. She is eventually going to be intubated. Therefore, it is felt at this time to intubate her, put her in prone position as tolerated. Otherwise, continue steroids and remdesivir. Prognosis is grave. Job ID: [id number]
[2020-02-04 15:56] LABS: Actual Bicarbonate (HCO3a) 25.9 mEq/L (22-28); Base Excess (BEa) 1.1 mEq/L (-2.0 to +3.0); CO2 Tension 41.9 mmHg (35.0-45.0); Carboxyhemoglobin (COHb) 0.4 gm% (0.0-3.0); Hemoglobin (Hb) 12.3 g/dL (12.0-16.0); Potassium - ABG Lab 4.07 mmol/L (3.70-5.30); pH, Arterial 7.41 (7.35-7.45)
[2020-02-04 15:59] LABS: ALV-art Gradient 614.625 mmHg (0-20); Puncture Site RRA
[2020-02-04] MEDS: Propofol 1,000 MG/100 ML VIAL IV PRN (16:45)
[2020-02-04] MEDS: REMDESIVIR (EUA) 100 MG in Sodium Chloride 0.9% 250 ML 230 ML IV SCH (16:51)
[2020-02-05] MEDS: methylPREDNISolone Sod Succ 40 MG VIAL IVP SCH ×4 (00:08→17:07)
[2020-02-05 04:14] LABS: #Lymphocytes 0.4 thou/uL (1.20-3.40); #Monocytes 0.2 thou/uL (0.11-0.59); #Neutrophils 4.4 thou/uL (1.40-6.50); %Eosinophils 0.1 % (0.0-10.0); %Lymphocytes 7.4 % (21.0-51.0); %Monocytes 4.2 % (0.0-10.0); %Neutrophils 88.4 % (42.0-75.0); Mean Corpuscular HGB CONC 33.7 g/dL (32.0-36.0); Mean Corpuscular Hemoglobin 32.1 pg (27.0-31.0); Mean Corpuscular Volume 95.4 fL (78.0-98.0); Mean Platelet Volume 7.9 fL (7.4-10.4); Platelet Count 185 thou/uL (130-400); RBC Distribution Width 14.4 % (11.5-14.5); Red Blood Cell (RBC) Count 3.73 mill/uL (4.20-5.40)
[2020-02-05 04:33] LABS: Anion Gap 15 mmol/L (10-20); BUN (Urea Nitrogen) 27 mg/dL (9.8-20.1); CRP (Inflammatory) 8.62 mg/dL (= or < 0.5); Calc. Creatinine Clearance 120 mL/min (70-130); Calcium 8.5 mg/dL (7.8-10.44); Carbon Dioxide 22 mmol/L (23-31); Chloride 112 mmol/L (98-107); Glucose 294 mg/dL (83-110); Potassium 3.4 mmol/L (3.5-5.1); Sodium 146 mmol/L (136-145)
[2020-02-05 04:34] LABS: ALT (SGPT) 9 U/L (8-55); AST (SGOT) 21 U/L (5-34); Albumin 2.9 g/dL (3.4-4.8); Alkaline Phosphatase 66 U/L (40-110); Bilirubin, Direct 0.4 mg/dL (0.1-0.3); Bilirubin, Total 0.6 mg/dL (0.2-1.2); Protein, Total 6.4 g/dL (6.0-8.3)
[2020-02-05] MEDS: HumaLOG 300 UNITS/3 ML VIAL SC PRN ×4 (05:55→21:48)
[2020-02-05 06:51] LABS: Actual Bicarbonate (HCO3a) 20.5 mEq/L (22-28); Base Excess (BEa) -0.9 mEq/L (-2.0 to +3.0); Carboxyhemoglobin (COHb) 0.4 gm% (0.0-3.0); O2 Tension (PaO2), arterial 93.5 mmHg (> 70.0); Potassium - ABG Lab 3.45 mmol/L (3.70-5.30); pH, Arterial 7.52 (7.35-7.45)
[2020-02-05 06:52] LABS: CO2 Tension 25.8 mmHg (35.0-45.0); Puncture Site LRA
[2020-02-05] MEDS: Propofol 1,000 MG/100 ML VIAL IV PRN ×4 (07:16→21:25)
[2020-02-05] MEDS: Lorazepam 2 MG/ML VIAL SLOW IVP PRN ×3 (07:16→17:07)
[2020-02-05] MEDS: Rocuronium Bromide 10 MG/ML (10ML VIAL) IVP PRN ×3 (07:16→23:03)
[2020-02-05] MEDS: fentaNYL Citrate/PF 2,000 MCG in Sodium Chloride 0.9% 60 ML IV SCH (07:20)
[2020-02-05] MEDS: Rosuvastatin 10 MG TAB PO SCH (08:28)
[2020-02-05] MEDS: Citalopram 20 MG TAB PO SCH (08:28)
[2020-02-05] MEDS: Ascorbic Acid 500 mg Chewable Tablet PO SCH (08:29)
[2020-02-05] MEDS: Atenolol 50 MG TAB PO SCH (08:29)
[2020-02-05] MEDS: Famotidine 20 MG TAB PO SCH ×2 (08:29→21:25)
--- NOTE | 2020-02-05 08:29 | RAD ---
PORTABLE SUPINE CHEST: INDICATION: CCU followup on ventilator. Pneumonia. COMPARISON: 02/04/2020. FINDINGS: ET tube and NG tube are noted in place. Bilateral confluent alveolar infiltrates are seen most promi nent in mid and lower lung veronica but also extending into the left upper lobe. IMPRESSION: Diffuse bilateral infiltrates which appear to have progressed. POS: AGW
[2020-02-05] MEDS: Enoxaparin Sodium 40 MG/0.4 ML SYRINGE SC SCH (08:30)
[2020-02-05] MEDS: Alogliptin 6.25 MG TAB PO SCH (08:31)
[2020-02-05] MEDS: Levothyroxine 100 MCG SDV IVP SCH (08:32)
[2020-02-05] MEDS ORDERED: Potassium Chloride 10 MEQ/100 ML PREMIX BAG IVPB SCH (08:45)
[2020-02-05] MEDS: Cefepime 1 GM in Sodium Chloride 0.9% 100 ML IVPB SCH ×2 (09:07→21:25)
[2020-02-05] MEDS: Insulin Glargine 20 UNITS in Pre-Filled Syringe 1 EACH SC SCH ×2 (10:06→21:25)
--- NOTE | 2020-02-05 10:48 | PDOC.HOSPP ---
- Subjective Encounter Date: 02/05/20 Encounter Time: 07:00 Subjective: Patient was intubated yesterday, this morning patient was on prone position, overall patient is not doing well, - Objective Vital Signs & Weight: Vital Signs (12 hours) Temp Pulse Resp BP Pulse Ox 02/05/20 10:00 20 02/05/20 08:29 41 L 180/73 H 02/05/20 08:00 20 02/05/20 07:47 100 02/05/20 06:46 41 L 180/73 H 02/05/20 06:00 20 02/05/20 04:00 20 02/05/20 02:36 42 L 149/64 H 02/05/20 02:00 20 02/05/20 00:00 97.8 F 20 Weight Weight 235 lb Most Recent Monitor Data Heart Rate from ECG 46 NIBP 134/66 NIBP BP-Mean 88 Respiration from ECG 20 SpO2 100 I&O: 02/04/20 02/05/20 02/06/20 06:59 06:59 06:59 Intake Total 1375 1719.9 100 Output Total 1020 985 175 Balance 355 734.9 -75 Result Diagrams: 02/05/20 03:45 02/05/20 03:46 Additional Labs: Accuchecks 02/04/20 02/04/20 02/04/20 22:27 17:05 11:07 POC Glucose 250 H 243 H 201 H 02/03/20 02/02/20 15:51 15:33 POC Glucose 295 H 255 H Radiology Reviewed by me: Yes (Chest x-ray showing worsening of bilateral infiltration) EKG Reviewed by me: Yes (Tachycardia) Hospitalist ROS - Review of Systems ROS unobtainable: due to endotracheal tube - Medication Medications: Active Medications Generic Name Dose Route Start Last Admin Trade Name Freq PRN Reason Stop Dose Admin Alogliptin Benzoate 12.5 mg 02/02/20 09:00 02/05/20 08:31 Alogliptin 6.25 Mg Tab PO Not Given DAILY ALREY Ascorbic Acid 1,000 mg 02/01/20 09:00 02/05/20 08:29 Ascorbic Acid 500 Mg Chewable Tablet PO 1,000 mg DAILY ARLEY Administration Atenolol 50 mg 02/01/20 09:00 02/05/20 08:29 Atenolol 50 Mg Tab PO Not Given DAILY ARLEY Citalopram Hydrobromide 20 mg 02/01/20 09:00 02/05/20 08:28 Citalopram 20 Mg Tab PO 20 mg DAILY ARLEY Administration Enoxaparin Sodium 40 mg 02/01/20 09:00 02/05/20 08:30 Enoxaparin Sodium 40 Mg/0.4 Ml Syringe SC 40 mg 0900 ARLEY Administration Famotidine 20 mg 02/01/20 09:00 02/05/20 08:29 Famotidine 20 Mg Tab PO 20 mg BID ARLEY Administration Guaifenesin/Dextromethorphan 15 ml 01/31/20 21:30 02/02/20 02:04 Guaifenesin Dm 100-10/5 Ml Udcup PO 15 ml Q4H PRN Administration Cough Haloperidol Lactate 5 mg 02/02/20 08:47 02/04/20 11:01 Haloperidol Lactate 5 Mg/Ml Vial SLOW IVP 5 mg Q4H PRN Administration Agitation Remdesivir 100 mg/ Sodium 250 mls @ 250 mls/hr 02/02/20 16:00 02/04/20 16:51 Chloride IV 02/05/20 16:59 250 mls 1600 ARLEY Administration Insulin Glargine 20 units/ 0.2 mls @ 0 mls/hr 02/02/20 21:00 02/05/20 10:06 Miscellaneous Medication SC Not Given BID ARLEY Cefepime HCl 1 gm/ Sodium 100 mls @ 200 mls/hr 02/02/20 10:00 02/05/20 09:07 Chloride IVPB 100 mls 1000,2200 ARLEY Administration Dexmedetomidine HCl 400 mcg/ 100 mls @ 0 mls/hr 02/02/20 14:45 02/04/20 21:46 Sodium Chloride IVPB 100 mls INF ARLEY Administration Protocol Titrate Fentanyl Citrate 2,000 mcg/ 100 mls @ 0 mls/hr 02/04/20 14:30 02/05/20 07:20 Sodium Chloride IV 03/05/20 14:30 100 mls INF ARLEY Administration Protocol Per Protocol Insulin Human Lispro 0 units 01/31/20 22:19 02/05/20 10:00 Humalog 300 Units/3 Ml Vial SC 6 unit .MODERATE SLIDING SC PRN Administration Moderate Correctional Scale Insulin Human Lispro 0 units 01/31/20 22:19 02/01/20 21:36 Humalog 300 Units/3 Ml Vial SC 2 unit .BEDTIME SLIDING SC PRN Administration Bedtime Correctional Scale Levothyroxine Sodium 100 mcg 02/04/20 06:00 02/05/20 08:32 Levothyroxine 100 Mcg Sdv IVP Not Given 0600 ARLEY Lorazepam 2 mg 02/04/20 14:30 02/05/20 07:16 Lorazepam 2 Mg/Ml Vial SLOW IVP 03/05/20 14:30 2 mg Q1H PRN Administration Breakthrough agitation Methylprednisolone Sodium Succinate 40 mg 02/02/20 12:00 02/05/20 05:53 Methylprednisolone Sod Succ 40 Mg Vial IVP 40 mg Q6HR ARLEY Administration Potassium Chloride 10 meq 02/05/20 08:45 02/05/20 10:03 Potassium Chloride 10 Meq/100 Ml Premix Bag IVPB 02/05/20 12:00 10 meq NOW ARLEY Administration Propofol 1,000 mg 02/04/20 14:30 02/05/20 09:07 Propofol 1,000 Mg/100 Ml Vial IV 03/05/20 14:30 1,000 mg INF PRN Administration TO ACHIEVE GOAL RASS Protocol Quetiapine Fumarate 25 mg 02/02/20 09:00 02/05/20 08:30 Quetiapine Fumarate 25 Mg Tab PO 25 mg BID ARLEY Administration Rocuronium [place] 10 mg 02/04/20 14:25 02/05/20 07:16 Rocuronium [place] 10 Mg/Ml (10ml Vial) IVP 10 mg Q2HR PRN Administration Agitation Rosuvastatin Calcium 10 mg 02/01/20 09:00 02/05/20 08:28 Rosuvastatin 10 Mg Tab PO 10 mg DAILY ARLEY Administration - Exam General Appearance: ill appearing Eye: PERRL ENT: normocephalic atraumatic ENT - other findings: Endotracheal tube in place Neck: no JVD Heart: RRR, no murmur, no gallops Heart - other findings: Tachycardia Respiratory - other findings: Bilateral coarse breath sound Gastrointestinal: soft Gastrointestinal - other findings: Obesity Extremities: 1+ LE edema Skin: normal turgor Hosp A/P (1) Respiratory failure with hypoxia Code(s): J96.91 - RESPIRATORY FAILURE, UNSPECIFIED WITH HYPOXIA Status: Acute Qualifiers: Chronicity: acute Qualified Code(s): J96.01 - Acute respiratory failure with hypoxia Plan: Due to COVID-19, initially patient was kept on BiPAP and subsequently changed to high flow oxygen but patient condition did not improve so again patient required BiPAP and eventually endotracheal intubation and mechanical ventilatory support, currently on prone position, ventilator as per pulmonology (2) Pneumonia due to COVID-19 virus Code(s): U07.1 - COVID-19; J12.89 - OTHER VIRAL PNEUMONIA Status: Acute Plan: Pneumonia getting worse, patient is already on remdesivir therapy, dexamethaso ne, also started cefepime (3) Sepsis Code(s): A41.9 - SEPSIS, UNSPECIFIED ORGANISM Status: Acute Qualifiers: Sepsis acute organ dysfunction status: with acute organ dysfunction Severe sepsis acute organ dysfunction type: acute respiratory failure Acute respir atory failure type: with hypoxia Severe sepsis shock status: without septic shock (4) DM2 (diabetes mellitus, type 2) Status: Chronic Qualifiers: Diabetes mellitus long term care social worker insulin use: with long term care social worker use Diabetes mellitus complication status: with hyperglycemia Qualified Code(s): E11.65 - Type 2 diabetes mellitus with hyperglycemia; Z79.4 - senior care (current) use of insulin (5) Depression Code(s): F32.9 - MAJOR DEPRESSIVE DISORDER, SINGLE EPISODE, UNSPECIFIED Status: Chronic Qualifiers: Depression Type: unspecified Qualified Code(s): F32.9 - Major depressive disorder, single episode, unspecified (6) Hypothyroidism Code(s): E03.9 - HYPOTHYROIDISM, UNSPECIFIED Status: Chronic Qualifiers: Hypothyroidism type: unspecified Qualified Code(s): E03.9 - Hypothyroidism, unspecified (7) Obesity Code(s): E66.9 - OBESITY, UNSPECIFIED Status: Chronic Qualifiers: Obesity classification: adult class 3 (BMI >= 40) Body mass index: BMI 40.0-44.9 (8) Dyslipidemia Code(s): E78.5 - HYPERLIPIDEMIA, UNSPECIFIED Status: Chronic - Plan old records reviewed/req, plan discussed w/ family, continue antibiotics, respiratory therapy, DVT proph w/lovenox Continue ventilator as per pulmonology Continue remdesivir, dexamethasone, cefepime Prognosis guarded
--- NOTE | 2020-02-05 11:36 | PRG ---
DATE OF SERVICE: 02/05/2020 SUBJECTIVE: Eber Mata is a morbidly obese female, who is intubated yesterday with progressive respiratory failure. X-ray still shows bilateral pulmonary infiltrates. She is in the prone position. OBJECTIVE: VITAL SIGNS: Pulse 47, blood pressure 100/80, saturations are 100%, respirations 20, she is on low PEEP of 13 and FiO2 of 60%. CHEST: Bilateral rhonchi and crackles. CARDIAC: Normal S1 and S2. No gallops. ABDOMEN: No mass. Temperature is 97, blood pressure 149/61. I's and O's have been consistently good. LABORATORY DATA: Otherwise, lytes are normal. ASSESSMENT AND PLAN: Thurman positive pneumonia, respiratory failure. Receiving antibiotics, remdesivir, plasma, high-dose steroids. Prognosis is guarded. We will continue present management and treatment. One-half hour of critical care time. Job ID: [id number]
--- NOTE | 2020-02-05 13:04 | PDOC.PALCO ---
Palliative Care Consult - Consult Details Requesting Physician: Dr Matute Reason for Consult: goals of care, advance directives assistance, family support - Pertinent HPI 74 year old female who resides in a private home setting with her . She presented to [facility] emergency room via EMS for suspected Covid Pneumonia. On presentation to emergency room she relayed onset of fever, headache, aches all over, non productive cough an intermittent shortness of breath. No wheezing, diarrhea, or chest pain. She was transferred to [facility] for higher level of care. During course of Hospital stay she has increasing shortness of breath, requiring transfer to CCU, placed on bipap and need for subsequent intubation. Being intermittently proned, sedated, receiving antibiotics, remdesivir, plasma, and high dose steroids. - Pertinent PMH Hyperlipidemia, HTN, SVT and atrial tachycardia, DM II, Hypothyroid, Obesity - Social History Smoking Status: Former smoker Smoking: quit greater than 1 year Alcohol Use: none Drug Use History: none Living Situation: independent, - Medications MAR Reviewed: Yes - Allergies Allergies/Adverse Reactions: Allergies Allergy/AdvReac Type Severity Reaction Status Date / Time latex Allergy Verified 06/02/19 19:00 naloxone HCl [From [employer] NX] Allergy Verified 06/02/19 19:00 Penicillins Allergy Verified 06/02/19 19:00 pentazocine HCl Allergy Verified 06/02/19 19:00 [From [employer] NX] - Subjective Just repositioned from being proned, sedated, intubated with mechanical ventilation. - ROS Non Response: due to endotracheal tube, due to mental status - Objective Vital Signs: Vital Signs - Most Recent Temp Pulse Resp BP Pulse Ox 98.7 F 46 L 14 180/73 H 100 02/05/20 12:00 02/05/20 12:06 02/05/20 12:00 02/05/20 08:29 02/05/20 07:47 - Physical Exam Constitutional: ill appearing HEENT: moist MMs Deviation from normal: Bilaterally adventicious Cardiovascular: RRR Gastrointestinal: soft, non-tender Deviation from normal: Obese Genitourinary: luna catheter Musculoskeletal: no cyanosis, no clubbing, edema present Deviation from normal: Sedated, facila semetry Skin: cap refill <2 seconds, fragile Deviation from normal: Sedated - Problem List (1) Palliative care encounter Code(s): Z51.5 - ENCOUNTER FOR PALLIATIVE CARE Current Visit: Yes Status: Acute (2) Pneumonia due to COVID-19 virus Code(s): U07.1 - COVID-19; J12.89 - OTHER VIRAL PNEUMONIA Current Visit: Yes Status: Acute (3) Respiratory failure with hypoxia Code(s): J96.91 - RESPIRATORY FAILURE, UNSPECIFIED WITH HYPOXIA Current Visit: Yes Status: Acute Qualifiers: Chronicity: acute Qualified Code(s): J96.01 - Acute respiratory failure with hypoxia (4) Sepsis Code(s): A41.9 - SEPSIS, UNSPECIFIED ORGANISM Current Visit: Yes Status: Acute Qualifiers: Sepsis acute organ dysfunction status: with acute organ dysfunction Severe sepsis acute organ dysfunction type: acute respiratory failure Acute respiratory failure type: with hypoxia Severe sepsis shock status: without septic shock (5) DM2 (diabetes mellitus, type 2) Current Visit: Yes Status: Chronic Qualifiers: Diabetes mellitus rn endoscopy insulin use: with half-way use Diabetes mellitus complication status: with hyperglycemia Qualified Code(s): E11.65 - Type 2 diabetes mellitus with hyperglycemia; Z79.4 - long-term (current) use of insulin (6) Obesity Code(s): E66.9 - OBESITY, UNSPECIFIED Current Visit: Yes Status: Chronic Qualifiers: Obesity classification: adult class 3 (BMI >= 40) Body mass index: BMI 40.0-44.9 - Plan/Recommendations Plan: Assessed patient, communicated with Mr Mata. He was updated, discussed xray continued to show covid pneumonia slightly worse. Questions answered. Discussed resuscitaiton status and consideration of DNAR status that we can reverse if/when his improves. He relayed that they have two children, he will further discuss resuscitation status. Mr Mata confirmed that he reviewed news of a positive Covid test today. Emotional support and Therapeutic listening. Communicated with patient primary RN Rodriguez. Will ensure Spiritual Care consult placed. [55] minutes spent on this encounter with >50% of the time in counseling and coordination of care. Thank you for this very appropriate consult.
[2020-02-05] MEDS: REMDESIVIR (EUA) 100 MG in Sodium Chloride 0.9% 250 ML 230 ML IV SCH (16:01)
[2020-02-06] MEDS: Lorazepam 2 MG/ML VIAL SLOW IVP PRN ×3 (00:20→11:38)
[2020-02-06] MEDS: Vecuronium 10 MG VIAL IVP PRN ×4 (00:20→20:43)
[2020-02-06] MEDS: Sterile Water 10 ML VIAL FS PRN ×3 (00:20→20:44)
[2020-02-06] MEDS: methylPREDNISolone Sod Succ 40 MG VIAL IVP SCH ×4 (00:24→16:24)
[2020-02-06] MEDS: Propofol 1,000 MG/100 ML VIAL IV PRN ×6 (01:45→20:43)
[2020-02-06] MEDS: fentaNYL Citrate/PF 2,000 MCG in Sodium Chloride 0.9% 60 ML IV SCH ×2 (01:49→16:23)
[2020-02-06] MEDS: Levothyroxine 100 MCG SDV IVP SCH (05:49)
[2020-02-06] MEDS: HumaLOG 300 UNITS/3 ML VIAL SC PRN ×3 (05:52→15:10)
--- NOTE | 2020-02-06 07:17 | EKG ---
Test Reason : STAT Blood Pressure : / mmHG Vent. Rate : 117 BPM Atrial Rate : 117 BPM P-R Int : 162 ms QRS Dur : 080 ms QT Int : 316 ms P-R-T Axes : 094 060 041 degrees QTc Int : 440 ms Sinus tachycardia Otherwise normal ECG No previous ECGs available Confirmed by SERGIO MCKEON MD ([id number]) on 02/06/2020 7:17:20 AM Referred By: PRUDENCIO Confirmed By:SERGIO MCKEON MD
[2020-02-06 08:14] LABS: Actual Bicarbonate (HCO3a) 27.3 mEq/L (22-28); Base Excess (BEa) 1.7 mEq/L (-2.0 to +3.0); CO2 Tension 46.9 mmHg (35.0-45.0); Calcium, Ionized (arterial) 1.16 mmol/L (1.12-1.30); Carboxyhemoglobin (COHb) 0.3 gm% (0.0-3.0); O2 Tension (PaO2), arterial 80.6 mmHg (> 70.0); Potassium - ABG Lab 3.83 mmol/L (3.70-5.30); pH, Arterial 7.38 (7.35-7.45)
[2020-02-06 08:36] LABS: Puncture Site RRA
[2020-02-06 08:38] LABS: ALV-art Gradient 217.275 mmHg (0-20)
[2020-02-06 09:06] LABS: Anion Gap 17 mmol/L (10-20); BUN (Urea Nitrogen) 22 mg/dL (9.8-20.1); CRP (Inflammatory) 7.04 mg/dL (= or < 0.5); Calc. Creatinine Clearance 126 mL/min (70-130); Calcium 7.8 mg/dL (7.8-10.44); Carbon Dioxide 23 mmol/L (23-31); Chloride 114 mmol/L (98-107); Glucose 203 mg/dL (83-110); Potassium 4.7 mmol/L (3.5-5.1); Sodium 149 mmol/L (136-145)
[2020-02-06] MEDS: Ascorbic Acid 500 mg Chewable Tablet PO SCH (09:10)
[2020-02-06] MEDS: Citalopram 20 MG TAB PO SCH (09:10)
[2020-02-06] MEDS: Famotidine 20 MG TAB PO SCH ×2 (09:10→20:40)
[2020-02-06] MEDS: Cefepime 1 GM in Sodium Chloride 0.9% 100 ML IVPB SCH ×2 (09:10→20:43)
[2020-02-06] MEDS: Rosuvastatin 10 MG TAB PO SCH (09:10)
[2020-02-06] MEDS: Insulin Glargine 20 UNITS in Pre-Filled Syringe 1 EACH SC SCH ×2 (09:11→20:40)
[2020-02-06] MEDS: Atenolol 50 MG TAB PO SCH (09:11)
[2020-02-06] MEDS: Alogliptin 6.25 MG TAB PO SCH (09:12)
[2020-02-06] MEDS: Enoxaparin Sodium 40 MG/0.4 ML SYRINGE SC SCH (09:12)
[2020-02-06 09:32] LABS: #Lymphocytes 0.4 thou/uL (1.20-3.40); #Monocytes 0.3 thou/uL (0.11-0.59); #Neutrophils 5.2 thou/uL (1.40-6.50); %Eosinophils 0.8 % (0.0-10.0); %Lymphocytes 6.3 % (21.0-51.0); %Monocytes 4.6 % (0.0-10.0); %Neutrophils 88.3 % (42.0-75.0); Hemoglobin 11.5 g/dL (12.0-16.0); Mean Corpuscular Hemoglobin 30.6 pg (27.0-31.0); Mean Corpuscular Volume 95.6 fL (78.0-98.0); Mean Platelet Volume 8.2 fL (7.4-10.4); Platelet Count 158 thou/uL (130-400); RBC Distribution Width 14.5 % (11.5-14.5); Red Blood Cell (RBC) Count 3.76 mill/uL (4.20-5.40); White Blood Cell (WBC) Count 5.8 thou/uL (4.8-10.8)
--- NOTE | 2020-02-06 09:35 | RAD ---
PORTABLE CHEST: HISTORY: CCU followup. Pneumonia and ventilator followup. COMPARISON: 02/05/2020. FINDINGS: ET tube has tip just above antonieta and could be retracted. NG tube is again noted. Diffuse bilateral confluent alveolar infiltrates and bilateral effusions again noted. No significant change in the appearance of the lung veronica. POS: AGW
--- NOTE | 2020-02-06 09:42 | PRG ---
DATE OF SERVICE: 02/06/2020 SUBJECTIVE: Eber Mata remains intubated in the vent. She is being proned day #3 today. OBJECTIVE: VITAL SIGNS: Temperature 97, sats 100% on 50% FiO2 bilevel, blood pressure 155/90, respiratory rate 18, afebrile. CHEST: Rhonchi. No wheezing. CARDIAC: Normal S1, S2. No gallops. ABDOMEN: Soft. LABORATORY DATA: pO2 is 80, pCO2 . ASSESSMENT: Respiratory failure, Thurman positive pneumonia, morbid obesity. PLAN: Steroids, remdesivir, convalescent plasma, supportive care. We will follow up. One-half hour of critical time. Job ID: [id number]
--- NOTE | 2020-02-06 12:57 | PDOC.HOSPP ---
- Subjective Encounter Date: 02/06/20 Encounter Time: 07:30 non-verbal Subjective: Patient seen and examined bedside today, patient is on bilevel ventilator, she is on prone position - Objective Vital Signs & Weight: Vital Signs (12 hours) Temp Pulse Resp BP Pulse Ox 02/06/20 12:00 97.7 F 14 02/06/20 11:03 82 130/68 02/06/20 09:59 14 02/06/20 09:11 100 02/06/20 08:13 100 02/06/20 08:00 97.8 F 14 02/06/20 07:34 98 02/06/20 06:00 14 02/06/20 04:00 14 02/06/20 02:30 119 H 179/93 H 02/06/20 02:00 14 02/06/20 01:00 98.2 F Weight Admit Weight 235 lb Weight 235 lb Most Recent Monitor Data Heart Rate from ECG 72 NIBP 132/74 NIBP BP-Mean 93 Respiration from ECG 14 SpO2 97 I&O: 02/05/20 02/06/20 02/07/20 06:59 06:59 06:59 Intake Total 1719.9 1690 Output Total 985 1139 245 Balance 734.9 551 -245 Result Diagrams: 02/06/20 08:42 02/06/20 08:42 Additional Labs: Accuchecks 02/06/20 02/06/20 02/05/20 09:52 04:14 21:31 POC Glucose 170 H 163 H 221 H 02/05/20 02/05/20 16:24 09:14 POC Glucose 234 H 267 H Radiology Reviewed by me: Yes (Chest x-ray reviewed) EKG Reviewed by me: Yes (Sinus rhythm) Hospitalist ROS - Review of Systems ROS unobtainable: due to endotracheal tube - Medication Medications: Active Medications Generic Name Dose Route Start Last Admin Trade Name Freq PRN Reason Stop Dose Admin Alogliptin Benzoate 12.5 mg 02/02/20 09:00 02/06/20 09:12 Alogliptin 6.25 Mg Tab PO 12.5 mg DAILY ARLEY Administration Ascorbic Acid 1,000 mg 02/01/20 09:00 02/06/20 09:10 Ascorbic Acid 500 Mg Chewable Tablet PO 1,000 mg DAILY ARLEY Administration Atenolol 50 mg 02/01/20 09:00 02/06/20 09:11 Atenolol 50 Mg Tab PO 50 mg DAILY ARLEY Administration Citalopram Hydrobromide 20 mg 02/01/20 09:00 02/06/20 09:10 Citalopram 20 Mg Tab PO 20 mg DAILY ARLEY Administration Enoxaparin Sodium 40 mg 02/01/20 09:00 02/06/20 09:12 Enoxaparin Sodium 40 Mg/0.4 Ml Syringe SC 40 mg 0900 ARLEY Administration Famotidine 20 mg 02/01/20 09:00 02/06/20 09:10 Famotidine 20 Mg Tab PO 20 mg BID ARLEY Administration Guaifenesin/Dextromethorphan 15 ml 01/31/20 21:30 02/02/20 02:04 Guaifenesin Dm 100-10/5 Ml Udcup PO 15 ml Q4H PRN Administration Cough Haloperidol Lactate 5 mg 02/02/20 08:47 02/04/20 11:01 Haloperidol Lactate 5 Mg/Ml Vial SLOW IVP 5 mg Q4H PRN Administration Agitation Insulin Glargine 20 units/ 0.2 mls @ 0 mls/hr 02/02/20 21:00 02/06/20 09:11 Miscellaneous Medication SC 0.2 mls BID ARLEY Administration Cefepime HCl 1 gm/ Sodium 100 mls @ 200 mls/hr 02/02/20 10:00 02/06/20 09:10 Chloride IVPB 100 mls 1000,2200 ARLEY Administration Dexmedetomidine HCl 400 mcg/ 100 mls @ 0 mls/hr 02/02/20 14:45 02/04/20 21:46 Sodium Chloride IVPB 100 mls INF ARLEY Administration Protocol Titrate Fentanyl Citrate 2,000 mcg/ 100 mls @ 0 mls/hr 02/04/20 14:30 02/06/20 01:49 Sodium Chloride IV 03/05/20 14:30 100 mls INF ARLEY Administration Protocol Per Protocol Insulin Human Lispro 0 units 01/31/20 22:19 02/06/20 09:56 Humalog 300 Units/3 Ml Vial SC 2 unit .MODERATE SLIDING SC PRN Administration Moderate Correctional Scale Insulin Human Lispro 0 units 01/31/20 22:19 02/01/20 21:36 Humalog 300 Units/3 Ml Vial SC 2 unit .BEDTIME SLIDING SC PRN Administration Bedtime Correctional Scale Levothyroxine Sodium 100 mcg 02/04/20 06:00 02/06/20 05:49 Levothyroxine 100 Mcg Sdv IVP 100 mcg 0600 ARLEY Administration Lorazepam 2 mg 02/04/20 14:30 02/06/20 11:38 Lorazepam 2 Mg/Ml Vial SLOW IVP 03/05/20 14:30 2 mg Q1H PRN Administration Breakthrough agitation Methylprednisolone Sodium Succinate 40 mg 02/02/20 12:00 02/06/20 11:39 Methylprednisolone Sod Succ 40 Mg Vial IVP 40 mg Q6HR ARLEY Administration Propofol 1,000 mg 02/04/20 14:30 02/06/20 09:10 Propofol 1,000 Mg/100 Ml Vial IV 03/05/20 14:30 1,000 mg INF PRN Administration TO ACHIEVE GOAL RASS Protocol Quetiapine Fumarate 25 mg 02/02/20 09:00 02/06/20 09:11 Quetiapine Fumarate 25 Mg Tab PO 25 mg BID ARLEY Administration Rocuronium [place] 10 mg 02/04/20 14:25 02/05/20 23:03 Rocuronium [place] 10 Mg/Ml (10ml Vial) IVP 10 mg Q2HR PRN Administration Agitation Rosuvastatin Calcium 10 mg 02/01/20 09:00 02/06/20 09:10 Rosuvastatin 10 Mg Tab PO 10 mg DAILY ARLEY Administration Sterile Water 10 ml 02/06/20 00:18 02/06/20 01:41 Sterile Water 10 Ml Vial FS 10 ml PRN PRN Administration FOR VEC RECONST. Vecuronium [place] 10 mg 02/06/20 00:15 02/06/20 11:38 Vecuronium 10 Mg Vial IVP 10 mg Q1H PRN Administration AGITATION/NEUROMUSCULAR BLOCK - Exam General Appearance: NAD General - other findings: On ventilator, prone position Heart: RRR, no murmur, no gallops, no rubs Respiratory: no wheezes, no rales, no ronchi Respiratory - other findings: Posteriorly Extremities: 1+ LE edema Extremities - other findings: SCD in place Hosp A/P (1) Respiratory failure with hypoxia Code(s): J96.91 - RESPIRATORY FAILURE, UNSPECIFIED WITH HYPOXIA Status: Acute Qualifiers: Chronicity: acute Qualified Code(s): J96.01 - Acute respiratory failure with hypoxia (2) Pneumonia due to COVID-19 virus Code(s): U07.1 - COVID-19; J12.89 - OTHER VIRAL PNEUMONIA Status: Acute (3) Sepsis Code(s): A41.9 - SEPSIS, UNSPECIFIED ORGANISM Status: Acute Qualifiers: Sepsis acute organ dysfunction status: with acute organ dysfunction Severe sepsis acute organ dysfunction type: acute respiratory failure Acute respiratory failure type: with hypoxia Severe sepsis shock status: without septic shock (4) DM2 (diabetes mellitus, type 2) Status: Chronic Qualifiers: Diabetes mellitus mcc insulin use: with mcc use Diabetes mellitus complication status: with hyperglycemia Qualified Code(s): E11.65 - Type 2 diabetes mellitus with hyperglycemia; Z79.4 - exterminator helper termite (current) use of insulin (5) Depression Code(s): F32.9 - MAJOR DEPRESSIVE DISORDER, SINGLE EPISODE, UNSPECIFIED Status: Chronic Qualifiers: Depression Type: unspecified Qualified Code(s): F32.9 - Major depressive disorder, single episode, unspecified (6) Hypothyroidism Code(s): E03.9 - HYPOTHYROIDISM, UNSPECIFIED Status: Chronic Qualifiers: Hypothyroidism type: unspecified Qualified Code(s): E03.9 - Hypothyroidism, unspecified (7) Obesity Code(s): E66.9 - OBESITY, UNSPECIFIED Status: Chronic Qualifiers: Obesity classification: adult class 3 (BMI >= 40) Body mass index: BMI 40.0-44.9 (8) Dyslipidemia Code(s): E78.5 - HYPERLIPIDEMIA, UNSPECIFIED Status: Chronic - Plan old records reviewed/req, luna catheter, continue antibiotics, respiratory therapy, DVT proph w/lovenox Consults: Palliative Care Patient is currently on remdesivir, Continue Solu-Medrol, Continue antibiotic cefepime Patient is currently on bilevel ventilator, Prognosis is very poor Palliative care on the case Medications reviewed, supportive care Monitor labs
[2020-02-07] MEDS: Propofol 1,000 MG/100 ML VIAL IV PRN ×5 (00:21→20:27)
[2020-02-07] MEDS: methylPREDNISolone Sod Succ 40 MG VIAL IVP SCH ×4 (00:21→18:15)
[2020-02-07] MEDS: HumaLOG 300 UNITS/3 ML VIAL SC PRN ×4 (03:57→21:31)
[2020-02-07 04:03] LABS: #Lymphocytes 0.4 thou/uL (1.20-3.40); #Monocytes 0.2 thou/uL (0.11-0.59); #Neutrophils 3.6 thou/uL (1.40-6.50); %Basophils 0.5 % (0.0-1.0); %Eosinophils 0.1 % (0.0-10.0); %Lymphocytes 8.5 % (21.0-51.0); %Monocytes 4.6 % (0.0-10.0); %Neutrophils 86.3 % (42.0-75.0); Hemoglobin 11.7 g/dL (12.0-16.0); Mean Corpuscular HGB CONC 31.6 g/dL (32.0-36.0); Mean Corpuscular Hemoglobin 30.5 pg (27.0-31.0); Mean Corpuscular Volume 96.7 fL (78.0-98.0); Platelet Count 175 thou/uL (130-400); RBC Distribution Width 14.7 % (11.5-14.5); Red Blood Cell (RBC) Count 3.83 mill/uL (4.20-5.40); White Blood Cell (WBC) Count 4.1 thou/uL (4.8-10.8)
[2020-02-07] MEDS: Sterile Water 10 ML VIAL FS PRN (04:21)
[2020-02-07] MEDS: Vecuronium 10 MG VIAL IVP PRN ×3 (04:21→11:14)
[2020-02-07 04:44] LABS: ALT (SGPT) 12 U/L (8-55); AST (SGOT) 20 U/L (5-34); Albumin 2.7 g/dL (3.4-4.8); Alkaline Phosphatase 52 U/L (40-110); Bilirubin, Direct 0.4 mg/dL (0.1-0.3); Bilirubin, Total 0.6 mg/dL (0.2-1.2)
[2020-02-07] MEDS: Levothyroxine 100 MCG SDV IVP SCH (06:07)
[2020-02-07 06:16] LABS: Actual Bicarbonate (HCO3a) 26.4 mEq/L (22-28); Base Excess (BEa) 2.7 mEq/L (-2.0 to +3.0); CO2 Tension 37.3 mmHg (35.0-45.0); Calcium, Ionized (arterial) 1.15 mmol/L (1.12-1.30); Carboxyhemoglobin (COHb) 0.4 gm% (0.0-3.0); Hemoglobin (Hb) 11.6 g/dL (12.0-16.0); O2 Tension (PaO2), arterial 79.3 mmHg (> 70.0); pH, Arterial 7.47 (7.35-7.45)
[2020-02-07 06:18] LABS: Puncture Site RRA
[2020-02-07 06:19] LABS: ALV-art Gradient 194.925 mmHg (0-20)
[2020-02-07 07:04] LABS: Anion Gap 18 mmol/L (10-20); BUN (Urea Nitrogen) 25 mg/dL (9.8-20.1); CRP (Inflammatory) 5.32 mg/dL (= or < 0.5); Calc. Creatinine Clearance 115 mL/min (70-130); Calcium 8.1 mg/dL (7.8-10.44); Carbon Dioxide 22 mmol/L (23-31); Chloride 114 mmol/L (98-107); Glucose 245 mg/dL (83-110); Potassium 4.2 mmol/L (3.5-5.1); Sodium 150 mmol/L (136-145)
--- NOTE | 2020-02-07 07:48 | RAD ---
Chest one view HISTORY:. Dyspnea. Follow-up. COMPARISON: 02/06/2020. FINDINGS: Cardiac silhouette is magnified and predominantly obscured by dense widespread airspace opa cification that is not significantly changed. Mediastinum remains midline. Tip of endotracheal catheter at the level of the antonieta. Nasogastric tub e descends to the abdomen. No evidence of pneumothorax. Hemostasis clips at the left axilla again demonstrated. IMPRESSION : Diffuse, dense airspace disease and findings are stable.
[2020-02-07] MEDS: Ascorbic Acid 500 mg Chewable Tablet PO SCH (08:00)
[2020-02-07] MEDS: Atenolol 50 MG TAB PO SCH (08:00)
[2020-02-07] MEDS: Rosuvastatin 10 MG TAB PO SCH (08:00)
[2020-02-07] MEDS: Alogliptin 6.25 MG TAB PO SCH (08:00)
[2020-02-07] MEDS: Enoxaparin Sodium 40 MG/0.4 ML SYRINGE SC SCH (08:00)
[2020-02-07] MEDS: Citalopram 20 MG TAB PO SCH (08:01)
[2020-02-07] MEDS: Famotidine 20 MG TAB PO SCH ×2 (08:01→20:20)
[2020-02-07] MEDS: Insulin Glargine 20 UNITS in Pre-Filled Syringe 1 EACH SC SCH ×2 (09:36→21:30)
[2020-02-07] MEDS: Cefepime 1 GM in Sodium Chloride 0.9% 100 ML IVPB SCH ×2 (09:36→21:24)
[2020-02-07] MEDS: Sodium Chloride 0.45% 1,000 ML IV SCH (09:36)
--- NOTE | 2020-02-07 10:46 | PRG ---
DATE OF SERVICE: 02/07/2020 SUBJECTIVE: This morning, the patient is in the supine position. Her oxygenation is better. The x-ray still shows pretty much diffuse infiltrates. OBJECTIVE: VITAL SIGNS: Temperature 98, pulse 64, blood pressure 188/96, pulse 128, sats 90%, I's and O's even. CHEST: No wheezing, no crackles. CARDIAC: Normal S1, S2. No gallops. ABDOMEN: No masses. LABORATORY DATA: White count 4,000, H and H , platelet count 75. PO2 of 73, pCO2 , pH 7.47 on a bilevel , rate of 14, 45%, pressure support of 10, sodium is 150, glucose 245. ASSESSMENT AND PLAN: Respiratory failure, electrolyte imbalance, morbid obesity, encephalopathy. This is the 3rd day in the prone position. If she remain stable, we will keep her in the supine position. In the meantime, continue antibiotics, high dose steroids, supportive care, nutrition, PT. One-half hour of critical care time. Job ID: [id number]
[2020-02-07] MEDS: Lorazepam 2 MG/ML VIAL SLOW IVP PRN ×4 (11:14→20:27)
[2020-02-07] MEDS: fentaNYL Citrate/PF 2,000 MCG in Sodium Chloride 0.9% 60 ML IV SCH (14:05)
--- NOTE | 2020-02-07 17:36 | PRG ---
DATE OF SERVICE: 02/07/2020 SUBJECTIVE: Ms. Mata is intubated in the ICU. She is on prone position and bilevel. OBJECTIVE: VITAL SIGNS: Temperature has been normal, blood pressure 150/60, respiratory rate 14, heart rate 58, saturating 100, FiO2 of 45. CHEST: Bilateral coarse breath sounds, but no obvious crackles. EXTREMITIES: No edema in lower extremities. LABORATORY DATA: White cell count 4.1, hemoglobin 11.7, platelets 175, and 86% neutrophils. D-dimer 3.67. Ferritin went above 322 and now it is 229. C-reactive protein is down from 9 to 5.32. She had a chest x-ray today, which showed dense airspace disease, stable findings. MEDICATIONS: She is currently on: 1. Cefepime. 2. Precedex. 3. Methylprednisolone 40 q.6. ASSESSMENT AND DISCUSSION: Diabetes type 2, hypertension, obesity, severe COVID pneumonia, this is the 15th day of illness and not doing well, requiring mechanical ventilation with bilevel pressure support. FiO2 is only 45, so maybe she will turn around over time but due to her age, high risk of poor outcome. Job ID: [id number] [facility]
--- NOTE | 2020-02-07 19:43 | PDOC.HOSPP ---
- Subjective Encounter Date: 02/07/20 Encounter Time: 14:00 Subjective: Patient seen for follow-up regarding COVID-19 pneumonia. Patient is intubated, could not complete review of systems. - Objective Vital Signs & Weight: Vital Signs (12 hours) Temp Pulse Resp BP Pulse Ox 02/07/20 18:34 61 02/07/20 18:00 14 02/07/20 16:00 14 02/07/20 15:00 98.2 F 02/07/20 14:03 59 L 02/07/20 14:00 14 02/07/20 13:00 98.0 F 02/07/20 12:00 14 02/07/20 10:25 60 02/07/20 10:00 14 02/07/20 08:00 67 14 162/69 H 99 Weight Admit Weight 235 lb Weight 235 lb Most Recent Monitor Data Heart Rate from ECG 60 NIBP 148/60 NIBP BP-Mean 89 Respiration from ECG 14 SpO2 99 I&O: 02/06/20 02/07/20 02/08/20 06:59 06:59 06:59 Intake Total 1690 1243 1003 Output Total 1139 1235 435 Balance 551 8 568 Result Diagrams: 02/07/20 03:50 02/07/20 03:50 Additional Labs: Accuchecks 02/07/20 02/07/20 02/07/20 16:48 09:43 03:49 POC Glucose 212 H 231 H 233 H 02/06/20 20:56 POC Glucose 193 H Labs and MAR reviewed by me Hospitalist ROS - Review of Systems ROS unobtainable: due to endotracheal tube - Medication Medications: Active Medications Generic Name Dose Route Start Last Admin Trade Name Freq PRN Reason Stop Dose Admin Alogliptin Benzoate 12.5 mg 02/02/20 09:00 02/07/20 08:00 Alogliptin 6.25 Mg Tab PO 12.5 mg DAILY ARLEY Administration Ascorbic Acid 1,000 mg 02/01/20 09:00 02/07/20 08:00 Ascorbic Acid 500 Mg Chewable Tablet PO 1,000 mg DAILY ARLEY Administration Atenolol 50 mg 02/01/20 09:00 02/07/20 08:00 Atenolol 50 Mg Tab PO 50 mg DAILY ARLEY Administration Citalopram Hydrobromide 20 mg 02/01/20 09:00 02/07/20 08:01 Citalopram 20 Mg Tab PO 20 mg DAILY ARLEY Administration Enoxaparin Sodium 40 mg 02/01/20 09:00 02/07/20 08:00 Enoxaparin Sodium 40 Mg/0.4 Ml Syringe SC 40 mg 0900 ARLEY Administration Famotidine 20 mg 02/01/20 09:00 02/07/20 08:01 Famotidine 20 Mg Tab PO 20 mg BID ARLEY Administration Guaifenesin/Dextromethorphan 15 ml 01/31/20 21:30 02/02/20 02:04 Guaifenesin Dm 100-10/5 Ml Udcup PO 15 ml Q4H PRN Administration Cough Haloperidol Lactate 5 mg 02/02/20 08:47 02/04/20 11:01 Haloperidol Lactate 5 Mg/Ml Vial SLOW IVP 5 mg Q4H PRN Administration Agitation Insulin Glargine 20 units/ 0.2 mls @ 0 mls/hr 02/02/20 21:00 02/07/20 09:36 Miscellaneous Medication SC 0.2 mls BID ARLEY Administration Cefepime HCl 1 gm/ Sodium 100 mls @ 200 mls/hr 02/02/20 10:00 02/07/20 09:36 Chloride IVPB 100 mls 1000,2200 ARLEY Administration Dexmedetomidine HCl 400 mcg/ 100 mls @ 0 mls/hr 02/02/20 14:45 02/04/20 21:46 Sodium Chloride IVPB 100 mls INF ARLEY Administration Protocol Titrate Fentanyl Citrate 2,000 mcg/ 100 mls @ 0 mls/hr 02/04/20 14:30 02/07/20 14:05 Sodium Chloride IV 03/05/20 14:30 100 mls INF ARLEY Administration Protocol Per Protocol Sodium Chloride 1,000 mls @ 50 mls/hr 02/07/20 09:15 02/07/20 09:36 1/2 Normal Saline IV 1,000 mls .Q20H ARLEY Administration Insulin Human Lispro 0 units 01/31/20 22:19 02/07/20 17:00 Humalog 300 Units/3 Ml Vial SC 4 unit .MODERATE SLIDING SC PRN Administration Moderate Correctional Scale Insulin Human Lispro 0 units 01/31/20 22:19 02/01/20 21:36 Humalog 300 Units/3 Ml Vial SC 2 unit .BEDTIME SLIDING SC PRN Administration Bedtime Correctional Scale Levothyroxine Sodium 100 mcg 02/04/20 06:00 02/07/20 06:07 Levothyroxine 100 Mcg Sdv IVP 100 mcg 0600 ARLEY Administration Lorazepam 2 mg 02/04/20 14:30 02/07/20 16:44 Lorazepam 2 Mg/Ml Vial SLOW IVP 03/05/20 14:30 2 mg Q1H PRN Administration Breakthrough agitation Methylprednisolone Sodium Succinate 40 mg 02/02/20 12:00 02/07/20 18:15 Methylprednisolone Sod Succ 40 Mg Vial IVP 40 mg Q6HR ARLEY Administration Propofol 1,000 mg 02/04/20 14:30 02/07/20 16:44 Propofol 1,000 Mg/100 Ml Vial IV 03/05/20 14:30 1,000 mg INF PRN Administration TO ACHIEVE GOAL RASS Protocol Quetiapine Fumarate 25 mg 02/02/20 09:00 02/07/20 08:00 Quetiapine Fumarate 25 Mg Tab PO 25 mg BID ARLEY Administration Rocuronium [place] 10 mg 02/04/20 14:25 02/05/20 23:03 Rocuronium [place] 10 Mg/Ml (10ml Vial) IVP 10 mg Q2HR PRN Administration Agitation Rosuvastatin Calcium 10 mg 02/01/20 09:00 02/07/20 08:00 Rosuvastatin 10 Mg Tab PO 10 mg DAILY ARLEY Administration Sterile Water 10 ml 02/06/20 00:18 02/07/20 04:21 Sterile Water 10 Ml Vial FS 10 ml PRN PRN Administration FOR VEC RECONST. Vecuronium [place] 10 mg 02/06/20 00:15 02/07/20 11:14 Vecuronium 10 Mg Vial IVP 10 mg Q1H PRN Administration AGITATION/NEUROMUSCULAR BLOCK - Exam General - other findings: Intubated ENT - other findings: ET tube Heart: RRR Respiratory - other findings: Bilateral crackles Skin: no rashes Psychiatric - other findings: Unable to assess Hosp A/P - Plan (1) Pneumonia due to COVID-19 virus Code(s): U07.1 - COVID-19; J12.89 - OTHER VIRAL PNEUMONIA Status: Acute (2) Respiratory failure with hypoxia Code(s): J96.91 - RESPIRATORY FAILURE, UNSPECIFIED WITH HYPOXIA Status: Acute Qualifiers: Chronicity: acute Qualified Code(s): J96.01 - Acute respiratory failure with hypoxia (3) Sepsis Code(s): A41.9 - SEPSIS, UNSPECIFIED ORGANISM Status: Acute Qualifiers: Sepsis acute organ dysfunction status: with acute organ dysfunction Severe sepsis acute organ dysfunction type: acute respiratory failure Acute respiratory failure type: with hypoxia Severe sepsis shock status: without septic shock (4) DM2 (diabetes mellitus, type 2) Status: Chronic Qualifiers: Diabetes mellitus group home insulin use: with group home use Diabetes mellitus complication status: with hyperglycemia Qualified Code(s): E11.65 - Type 2 diabetes mellitus with hyperglycemia; Z79.4 - superintendent marine oil terminal (current) use of insulin (5) Depression Code(s): F32.9 - MAJOR DEPRESSIVE DISORDER, SINGLE EPISODE, UNSPECIFIED Status: Chronic Qualifiers: Depression Type: unspecified Qualified Code(s): F32.9 - Major depressive disorder, single episode, unspecified (6) Morbid Obesity Code(s): E66.9 - OBESITY, UNSPECIFIED Status: Chronic Qualifiers: Obesity classification: adult class 3 (BMI >= 40) Body mass index: BMI 40.0-44.9 (7) Hypothyroidism Code(s): E03.9 - HYPOTHYROIDISM, UNSPECIFIED Status: Chronic Qualifiers: Hypothyroidism type: unspecified Qualified Code(s): E03.9 - Hypothyroidism, unspecified (8) Dyslipidemia Code(s): E78.5 - HYPERLIPIDEMIA, UNSPECIFIED Status: Chronic - Plan Continue remdesivir and Solu-Medrol. Continue cefepime Patient is currently on bilevel ventilator, Prognosis is very poor Palliative care following.
[2020-02-08] MEDS: methylPREDNISolone Sod Succ 40 MG VIAL IVP SCH ×5 (00:28→23:51)
[2020-02-08] MEDS: Propofol 1,000 MG/100 ML VIAL IV PRN ×4 (00:52→18:21)
[2020-02-08] MEDS: HumaLOG 300 UNITS/3 ML VIAL SC PRN ×4 (04:01→22:50)
[2020-02-08 04:19] LABS: ALT (SGPT) 10 U/L (8-55); AST (SGOT) 19 U/L (5-34); Albumin 2.3 g/dL (3.4-4.8); Alkaline Phosphatase 52 U/L (40-110); Anion Gap 17 mmol/L (10-20); BUN (Urea Nitrogen) 29 mg/dL (9.8-20.1); Bilirubin, Direct 0.2 mg/dL (0.1-0.3); Bilirubin, Total 0.5 mg/dL (0.2-1.2); Calc. Creatinine Clearance 129 mL/min (70-130); Calcium 7.9 mg/dL (7.8-10.44); Carbon Dioxide 19 mmol/L (23-31); Chloride 114 mmol/L (98-107); Glucose 353 mg/dL (83-110); Potassium 4.8 mmol/L (3.5-5.1); Protein, Total 5.9 g/dL (6.0-8.3); Sodium 145 mmol/L (136-145)
[2020-02-08 05:02] LABS: Band 13 % (5-11); Hemoglobin 11.6 g/dL (12.0-16.0); Lymphocytes 9 % (21-51); MDiff Complete? YES; Mean Corpuscular HGB CONC 30.3 g/dL (32.0-36.0); Mean Corpuscular Volume 99.2 fL (78.0-98.0); Mean Platelet Volume 8.8 fL (7.4-10.4); Monocytes 2 % (0-10); Neutrophil 76 % (42-75); Platelet Count 139 thou/uL (130-400); RBC Distribution Width 14.5 % (11.5-14.5); Red Blood Cell (RBC) Count 3.86 mill/uL (4.20-5.40); White Blood Cell (WBC) Count 6.4 thou/uL (4.8-10.8)
[2020-02-08] MEDS: Sodium Chloride 0.45% 1,000 ML IV SCH ×2 (05:32→18:21)
[2020-02-08] MEDS: Levothyroxine 100 MCG SDV IVP SCH (05:32)
[2020-02-08 07:32] LABS: Actual Bicarbonate (HCO3a) 25.6 mEq/L (22-28); Base Excess (BEa) 1.3 mEq/L (-2.0 to +3.0); CO2 Tension 39.3 mmHg (35.0-45.0); Calcium, Ionized (arterial) 1.19 mmol/L (1.12-1.30); Carboxyhemoglobin (COHb) 0.3 gm% (0.0-3.0); Hemoglobin (Hb) 11.7 g/dL (12.0-16.0); O2 Tension (PaO2), arterial 74.6 mmHg (> 70.0); Potassium - ABG Lab 4.42 mmol/L (3.70-5.30); pH, Arterial 7.43 (7.35-7.45)
[2020-02-08 07:33] LABS: Puncture Site RRA
[2020-02-08] MEDS: Enoxaparin Sodium 40 MG/0.4 ML SYRINGE SC SCH (08:21)
[2020-02-08] MEDS: Citalopram 20 MG TAB PO SCH (08:21)
[2020-02-08] MEDS: Rosuvastatin 10 MG TAB PO SCH (08:22)
[2020-02-08] MEDS: Famotidine 20 MG TAB PO SCH ×2 (08:22→19:56)
[2020-02-08] MEDS: Ascorbic Acid 500 mg Chewable Tablet PO SCH (08:22)
[2020-02-08] MEDS: fentaNYL Citrate/PF 2,000 MCG in Sodium Chloride 0.9% 60 ML IV SCH (08:22)
[2020-02-08] MEDS: Atenolol 50 MG TAB PO SCH (08:22)
[2020-02-08] MEDS: Alogliptin 6.25 MG TAB PO SCH (08:22)
[2020-02-08] MEDS: Insulin Glargine 20 UNITS in Pre-Filled Syringe 1 EACH SC SCH (08:26)
--- NOTE | 2020-02-08 08:53 | RAD ---
SINGLE VIEW OF THE CHEST: COMPARISON: 02/07/2020. HISTORY: Ventilated patient with respiratory failure. FINDINGS: A single view of the chest shows an enlarged but stable cardiomediastinal silhouette. The lines and tubes are unchanged in position. There are diffuse bilateral mixed alveolar interstitial opacities. No pneumothorax is seen. No significant change has occurred compared to the prior exam. IMPRESSION: Stable multifocal infiltrates. POS: EAA
[2020-02-08] MEDS: Cefepime 1 GM in Sodium Chloride 0.9% 100 ML IVPB SCH ×2 (09:53→21:05)
--- NOTE | 2020-02-08 10:44 | PRG ---
DATE OF SERVICE: 02/08/2020 SUBJECTIVE: This morning, she is intubated in the vent, sedated. She is looking much better. X-ray looks much improved. She was three days in the prone position. OBJECTIVE: VITAL SIGNS: Temperature 98, blood pressure 160/69, pulse 104, saturations 100%, respirations 14, on bilevel. CHEST: Rhonchi and crackles. CARDIAC: Normal S1, S2. No gallops. ABDOMEN: No masses. NEUROLOGIC: Sedated. LABORATORY DATA: White count 6000, hemoglobin and hematocrit are 11 and 38, platelet count 139. PO2 of 74, pCO2 of 39, pH 7.43, on bilevel, 45%. Lytes are normal. ASSESSMENT AND PLAN: Thurman positive pneumonia, respiratory failure, encephalopathy. She is much improved. She has finished a course of remdesivir. We will try and start cutting back on the sedation slowly. Wide paralytics as possible. Continue high-dose steroids. Nutrition, PT. One-half hour of critical time. Job ID: [id number]
[2020-02-08] MEDS ORDERED: hydrALAZINE 25 MG TAB PER TUBE SCH (11:00)
[2020-02-08] MEDS: hydrALAZINE 25 MG TAB PER TUBE SCH ×3 (12:49→19:56)
--- NOTE | 2020-02-08 19:05 | PDOC.HOSPP ---
- Subjective Encounter Date: 02/08/20 Encounter Time: 11:30 Subjective: Patient seen for follow-up regarding COVID-19 infection. Patient is intubated, could not complete review of systems. - Objective Vital Signs & Weight: Vital Signs (12 hours) Temp Pulse Resp Pulse Ox 02/08/20 18:00 10 L 02/08/20 17:06 59 L 02/08/20 16:00 10 L 02/08/20 14:23 59 L 02/08/20 14:00 10 L 02/08/20 13:00 97.9 F 02/08/20 12:49 67 02/08/20 12:00 10 L 02/08/20 11:49 67 02/08/20 10:20 67 02/08/20 10:00 10 L 02/08/20 08:22 59 L 02/08/20 08:00 14 02/08/20 07:35 100 02/08/20 07:25 59 L Weight Admit Weight 235 lb Weight 262 lb 12.656 oz Most Recent Monitor Data Heart Rate from ECG 56 NIBP 162/65 NIBP BP-Mean 97 Respiration from ECG 10 SpO2 100 I&O: 02/07/20 02/08/20 02/09/20 06:59 06:59 06:59 Intake Total 1243 2373 1424 Output Total 1235 915 930 Balance 8 1458 494 Result Diagrams: 02/08/20 03:41 02/08/20 03:41 Additional Labs: Accuchecks 02/08/20 02/08/20 17:10 11:11 POC Glucose 335 H 329 H I reviewed patient's labs and MAR Hospitalist ROS - Review of Systems ROS unobtainable: due to endotracheal tube - Medication Medications: Active Medications Generic Name Dose Route Start Last Admin Trade Name Freq PRN Reason Stop Dose Admin Alogliptin Benzoate 12.5 mg 02/02/20 09:00 02/08/20 08:22 Alogliptin 6.25 Mg Tab PO 12.5 mg DAILY ARLEY Administration Ascorbic Acid 1,000 mg 02/01/20 09:00 02/08/20 08:22 Ascorbic Acid 500 Mg Chewable Tablet PO 1,000 mg DAILY ARLEY Administration Atenolol 50 mg 02/01/20 09:00 02/08/20 08:22 Atenolol 50 Mg Tab PO 50 mg DAILY ARLEY Administration Citalopram Hydrobromide 20 mg 02/01/20 09:00 02/08/20 08:21 Citalopram 20 Mg Tab PO 20 mg DAILY ARLEY Administration Enoxaparin Sodium 40 mg 02/01/20 09:00 02/08/20 08:21 Enoxaparin Sodium 40 Mg/0.4 Ml Syringe SC 40 mg 0900 ARLEY Administration Famotidine 20 mg 02/01/20 09:00 02/08/20 08:22 Famotidine 20 Mg Tab PO 20 mg BID ARLEY Administration Guaifenesin/Dextromethorphan 15 ml 01/31/20 21:30 02/02/20 02:04 Guaifenesin Dm 100-10/5 Ml Udcup PO 15 ml Q4H PRN Administration Cough Haloperidol Lactate 5 mg 02/02/20 08:47 02/04/20 11:01 Haloperidol Lactate 5 Mg/Ml Vial SLOW IVP 5 mg Q4H PRN Administration Agitation Hydralazine HCl 25 mg 02/08/20 13:00 02/08/20 17:06 Hydralazine 25 Mg Tab PER TUBE 25 mg QID ARLEY Administration Insulin Glargine 20 units/ 0.2 mls @ 0 mls/hr 02/02/20 21:00 02/08/20 08:26 Miscellaneous Medication SC 0.2 mls BID ARLEY Administration Cefepime HCl 1 gm/ Sodium 100 mls @ 200 mls/hr 02/02/20 10:00 02/08/20 09:53 Chloride IVPB 100 mls 1000,2200 ARLEY Administration Dexmedetomidine HCl 400 mcg/ 100 mls @ 0 mls/hr 02/02/20 14:45 02/04/20 21:46 Sodium Chloride IVPB 100 mls INF ARLEY Administration Protocol Titrate Fentanyl Citrate 2,000 mcg/ 100 mls @ 0 mls/hr 02/04/20 14:30 02/08/20 08:22 Sodium Chloride IV 03/05/20 14:30 100 mls INF ARLEY Administration Protocol Per Protocol Sodium Chloride 1,000 mls @ 50 mls/hr 02/07/20 09:15 02/08/20 18:21 1/2 Normal Saline IV 1,000 mls .Q20H ARLEY Administration Insulin Human Lispro 0 units 01/31/20 22:19 02/08/20 17:33 Humalog 300 Units/3 Ml Vial SC 8 unit .MODERATE SLIDING SC PRN Administration Moderate Correctional Scale Insulin Human Lispro 0 units 01/31/20 22:19 02/01/20 21:36 Humalog 300 Units/3 Ml Vial SC 2 unit .BEDTIME SLIDING SC PRN Administration Bedtime Correctional Scale Levothyroxine Sodium 100 mcg 02/04/20 06:00 02/08/20 05:32 Levothyroxine 100 Mcg Sdv IVP 100 mcg 0600 ARLEY Administration Lorazepam 2 mg 02/04/20 14:30 02/07/20 20:27 Lorazepam 2 Mg/Ml Vial SLOW IVP 03/05/20 14:30 2 mg Q1H PRN Administration Breakthrough agitation Methylprednisolone Sodium Succinate 40 mg 02/02/20 12:00 02/08/20 17:06 Methylprednisolone Sod Succ 40 Mg Vial IVP 40 mg Q6HR ARLEY Administration Propofol 1,000 mg 02/04/20 14:30 02/08/20 18:21 Propofol 1,000 Mg/100 Ml Vial IV 03/05/20 14:30 1,000 mg INF PRN Administration TO ACHIEVE GOAL RASS Protocol Quetiapine Fumarate 25 mg 02/02/20 09:00 02/08/20 08:22 Quetiapine Fumarate 25 Mg Tab PO 25 mg BID ARLEY Administration Rosuvastatin Calcium 10 mg 02/01/20 09:00 02/08/20 08:22 Rosuvastatin 10 Mg Tab PO 10 mg DAILY ARLEY Administration Sterile Water 10 ml 02/06/20 00:18 02/07/20 04:21 Sterile Water 10 Ml Vial FS 10 ml PRN PRN Administration FOR VEC RECONST. Vecuronium Lee 10 mg 02/06/20 00:15 02/07/20 11:14 Vecuronium 10 Mg Vial IVP 10 mg Q1H PRN Administration AGITATION/NEUROMUSCULAR BLOCK - Exam General - other findings: Intubated and mechanically ventilated ENT: moist mucosa Heart: RRR Respiratory: CTAB Gastrointestinal: soft Psychiatric - other findings: Unable to assess Hosp A/P - Plan (1) Pneumonia due to COVID-19 virus Code(s): U07.1 - COVID-19; J12.89 - OTHER VIRAL PNEUMONIA Status: Acute (2) Respiratory failure with hypoxia Code(s): J96.91 - RESPIRATORY FAILURE, UNSPECIFIED WITH HYPOXIA Status: Acute Qualifiers: Chronicity: acute Qualified Code(s): J96.01 - Acute respiratory failure with hypoxia (3) Sepsis Code(s): A41.9 - SEPSIS, UNSPECIFIED ORGANISM Status: Acute Qualifiers: Sepsis acute organ dysfunction status: with acute organ dysfunction Severe sepsis acute organ dysfunction type: acute respiratory failure Acute respiratory failure type: with hypoxia Severe sepsis shock status: without septic shock (4) DM2 (diabetes mellitus, type 2) Status: Chronic Qualifiers: Diabetes mellitus emt intermediate insulin use: with fpc use Diabetes mellitus complication status: with hyperglycemia Qualified Code(s): E11.65 - Type 2 diabetes mellitus with hyperglycemia; Z79.4 - manager intermediate (current) use of insulin (5) Depression Code(s): F32.9 - MAJOR DEPRESSIVE DISORDER, SINGLE EPISODE, UNSPECIFIED Status: Chronic Qualifiers: Depression Type: unspecified Qualified Code(s): F32.9 - Major depressive disorder, single episode, unspecified (6) Morbid Obesity Code(s): E66.9 - OBESITY, UNSPECIFIED Status: Chronic Qualifiers: Obesity classification: adult class 3 (BMI >= 40) Body mass index: BMI 40.0-44.9 (7) Hypothyroidism Code(s): E03.9 - HYPOTHYROIDISM, UNSPECIFIED Status: Chronic Qualifiers: Hypothyroidism type: unspecified Qualified Code(s): E03.9 - Hypothyroidism, unspecified (8) Dyslipidemia Code(s): E78.5 - HYPERLIPIDEMIA, UNSPECIFIED Status: Chronic - Plan Continue Solu-Medrol. Patient has completed course of remdesivir. Continue cefepime Patient is currently on bilevel ventilator, Prognosis is very poor Palliative care following. Blood sugars very high, increase Lantus to 23 units twice daily. Blood pressure is high, start hydralazine 25 mg per tube 4 times daily and add as needed IV Vasotec.
[2020-02-08] MEDS: Insulin Glargine 23 UNITS in Pre-Filled Syringe SC SCH (19:57)
[2020-02-09] MEDS: Enalaprilat Dihydrate 1.25 MG/ML VIAL SLOW IVP PRN (03:24)
[2020-02-09] MEDS: Propofol 1,000 MG/100 ML VIAL IV PRN ×3 (03:25→18:34)
[2020-02-09 03:58] LABS: Anion Gap 12 mmol/L (10-20); BUN (Urea Nitrogen) 32 mg/dL (9.8-20.1); Calc. Creatinine Clearance 155 mL/min (70-130); Carbon Dioxide 23 mmol/L (23-31); Chloride 114 mmol/L (98-107); Glucose 316 mg/dL (83-110); Potassium 4.9 mmol/L (3.5-5.1); Sodium 144 mmol/L (136-145)
[2020-02-09 04:00] LABS: ALT (SGPT) 9 U/L (8-55); AST (SGOT) 14 U/L (5-34); Albumin 2.4 g/dL (3.4-4.8); Alkaline Phosphatase 47 U/L (40-110); Bilirubin, Direct 0.3 mg/dL (0.1-0.3); Bilirubin, Total 0.4 mg/dL (0.2-1.2); Protein, Total 5.5 g/dL (6.0-8.3)
[2020-02-09] MEDS: fentaNYL Citrate/PF 2,000 MCG in Sodium Chloride 0.9% 60 ML IV SCH (04:47)
[2020-02-09] MEDS: methylPREDNISolone Sod Succ 40 MG VIAL IVP SCH ×3 (04:52→18:34)
[2020-02-09] MEDS: Levothyroxine 100 MCG SDV IVP SCH (04:52)
[2020-02-09] MEDS: HumaLOG 300 UNITS/3 ML VIAL SC PRN ×2 (04:55→21:11)
[2020-02-09 07:49] LABS: Actual Bicarbonate (HCO3a) 28.6 mEq/L (22-28); Base Excess (BEa) 3.4 mEq/L (-2.0 to +3.0); CO2 Tension 45.8 mmHg (35.0-45.0); Calcium, Ionized (arterial) 1.22 mmol/L (1.12-1.30); Carboxyhemoglobin (COHb) 0.3 gm% (0.0-3.0); Hemoglobin (Hb) 11.6 g/dL (12.0-16.0); O2 Tension (PaO2), arterial 98.4 mmHg (> 70.0); pH, Arterial 7.41 (7.35-7.45)
[2020-02-09 08:05] LABS: Puncture Site RRA
--- NOTE | 2020-02-09 08:11 | RAD ---
EXAM: Single view of the chest HISTORY: Ventilated patient with respiratory failure COMPARISON: 02/08/2020 FINDINGS: Single view of the chest shows an enlarged but stable cardiomediastinal silhouette. Athero sclerotic calcifications are seen in the aorta. The endotracheal tube and NG tube are unchanged in position. Stable multifocal infiltrates are seen on the lung. No acute osseous abnormality. IMPRESSION: Stable multifocal pneumonia
[2020-02-09] MEDS ORDERED: Furosemide 40 MG/4 ML VIAL SLOW IVP SCH (09:00)
--- NOTE | 2020-02-09 09:19 | PRG ---
DATE OF SERVICE: 02/09/2020 35 minutes critical care time. SUBJECTIVE: The patient remains intubated, on mechanical ventilation, for COVID-19 pneumonia. OBJECTIVE: VITAL SIGNS: Temperature is 98.4, pulse 62, blood pressure 150/67, O2 saturation 100%. GENERAL: The patient is not requiring any vasopressors. 24-hour intake 3103, output 1670. Weight 262 pounds. Her admission weight was 235 pounds. HEENT: Unremarkable. NECK: No adenopathy or JVD. LUNGS: Clear. CARDIAC: S1, S2. Slightly bradycardic. ABDOMEN: Soft, obese, nontender, and nondistended. EXTREMITIES: No clubbing, cyanosis, but she is edematous. LABORATORY DATA: Sodium 144, potassium 4.9, chloride 114, CO2 of 23, BUN 32, creatinine 0.6, glucose 316. C-reactive protein was last measured 2.47. White blood cell count 6.4, hematocrit 38.3, and platelet count 139. Ph 7.41, pCO2 of 45, PO2 of 98 on bilevel 27/10, FiO2 of 45%. Her chest x-ray shows bilateral infiltrates, but has improved. ASSESSMENT: 1. COVID-19 pneumonia. 2. Acute respiratory failure requiring mechanical ventilation. 3. Profoundly volume overloaded. PLAN: I have dropped her high PEEP pressure to 20, low PEEP pressure to 8. We really need to focus on weaning her sedation and getting her breathing spontaneously in preparation for extubation soon. I am going to hold all paralytics for the time being. She needs to have her IV fluids stopped since she is getting tube feeds and is 30 pounds over her admission weight. I am going to give her one dose of diuretics. Job ID: [id number]
[2020-02-09 10:47] LABS: Hemoglobin 11.7 g/dL (12.0-16.0); Mean Corpuscular HGB CONC 32.1 g/dL (32.0-36.0); Mean Corpuscular Volume 96.7 fL (78.0-98.0); Mean Platelet Volume 8.8 fL (7.4-10.4); Platelet Count 148 thou/uL (130-400); RBC Distribution Width 14.4 % (11.5-14.5); Red Blood Cell (RBC) Count 3.78 mill/uL (4.20-5.40); White Blood Cell (WBC) Count 7.2 thou/uL (4.8-10.8)
[2020-02-09 11:15] LABS: Band 3 % (5-11); Lymphocytes 2 % (21-51); MDiff Complete? YES; Monocytes 4 % (0-10); Neutrophil 91 % (42-75); Platelet Morphology Comment Appears Adequate
[2020-02-09] MEDS: Cefepime 1 GM in Sodium Chloride 0.9% 100 ML IVPB SCH ×2 (11:17→22:18)
[2020-02-09] MEDS: Enoxaparin Sodium 40 MG/0.4 ML SYRINGE SC SCH (11:18)
[2020-02-09] MEDS: Insulin Glargine 23 UNITS in Pre-Filled Syringe SC SCH (11:18)
[2020-02-09] MEDS: Ascorbic Acid 500 mg Chewable Tablet PO SCH (11:19)
[2020-02-09] MEDS: hydrALAZINE 25 MG TAB PER TUBE SCH ×4 (11:20→20:37)
[2020-02-09] MEDS: Citalopram 20 MG TAB PO SCH (11:20)
[2020-02-09] MEDS: Famotidine 20 MG TAB PO SCH ×2 (11:20→20:37)
[2020-02-09] MEDS: Rosuvastatin 10 MG TAB PO SCH (11:21)
[2020-02-09] MEDS: Atenolol 50 MG TAB PO SCH (11:21)
[2020-02-09] MEDS: Alogliptin 6.25 MG TAB PO SCH (11:25)
--- NOTE | 2020-02-09 18:18 | PDOC.HOSPP ---
- Subjective Encounter Date: 02/09/20 Encounter Time: 12:30 Subjective: Patient seen for follow-up regarding COVID-19 pneumonia. No significant change since yesterday. Continues to be intubated. - Objective Vital Signs & Weight: Vital Signs (12 hours) Temp Pulse Resp BP Pulse Ox 02/09/20 16:00 10 L 02/09/20 14:52 59 L 02/09/20 14:00 10 L 02/09/20 12:00 98.7 F 10 L 02/09/20 11:21 60 157/64 H 02/09/20 11:20 60 157/94 H 02/09/20 10:00 10 L 02/09/20 08:06 55 L 02/09/20 08:00 98.2 F 10 L 100 Weight Admit Weight 235 lb Weight 262 lb 12.656 oz Most Recent Monitor Data Heart Rate from ECG 58 NIBP 125/48 NIBP BP-Mean 73 Respiration from ECG 10 SpO2 100 I&O: 02/08/20 02/09/20 02/10/20 06:59 06:59 06:59 Intake Total 2373 3103 240 Output Total 915 1670 790 Balance 1458 1433 -550 Result Diagrams: 02/09/20 10:36 02/09/20 03:36 Additional Labs: Accuchecks 02/09/20 02/08/20 11:37 22:32 POC Glucose 226 H 307 H I reviewed patient's labs and MAR EKG Reviewed by me: Yes (Normal sinus rhythm on telemetry) Hospitalist ROS - Review of Systems ROS unobtainable: due to endotracheal tube - Medication Medications: Active Medications Generic Name Dose Route Start Last Admin Trade Name Freq PRN Reason Stop Dose Admin Alogliptin Benzoate 12.5 mg 02/02/20 09:00 02/09/20 11:25 Alogliptin 6.25 Mg Tab PO 12.5 mg DAILY ARLEY Administration Ascorbic Acid 1,000 mg 02/01/20 09:00 02/09/20 11:19 Ascorbic Acid 500 Mg Chewable Tablet PO 1,000 mg DAILY ARLEY Administration Atenolol 50 mg 02/01/20 09:00 02/09/20 11:21 Atenolol 50 Mg Tab PO 50 mg DAILY ARLEY Administration Citalopram Hydrobromide 20 mg 02/01/20 09:00 02/09/20 11:20 Citalopram 20 Mg Tab PO 20 mg DAILY ARLEY Administration Enalaprilat 1.25 mg 02/08/20 10:52 02/09/20 03:24 Enalaprilat Dihydrate 1.25 Mg/Ml Vial SLOW IVP 1.25 mg Q6H PRN Administration SBP Greater Than 170 Enoxaparin Sodium 40 mg 02/01/20 09:00 02/09/20 11:18 Enoxaparin Sodium 40 Mg/0.4 Ml Syringe SC 40 mg 0900 ARLEY Administration Famotidine 20 mg 02/01/20 09:00 02/09/20 11:20 Famotidine 20 Mg Tab PO 20 mg BID ARLEY Administration Guaifenesin/Dextromethorphan 15 ml 01/31/20 21:30 02/02/20 02:04 Guaifenesin Dm 100-10/5 Ml Udcup PO 15 ml Q4H PRN Administration Cough Haloperidol Lactate 5 mg 02/02/20 08:47 02/04/20 11:01 Haloperidol Lactate 5 Mg/Ml Vial SLOW IVP 5 mg Q4H PRN Administration Agitation Hydralazine HCl 25 mg 02/08/20 13:00 02/09/20 11:20 Hydralazine 25 Mg Tab PER TUBE 25 mg QID ARLEY Administration Cefepime HCl 1 gm/ Sodium 100 mls @ 200 mls/hr 02/02/20 10:00 02/09/20 11:17 Chloride IVPB 100 mls 1000,2200 ARLEY Administration Dexmedetomidine HCl 400 mcg/ 100 mls @ 0 mls/hr 02/02/20 14:45 02/04/20 21:46 Sodium Chloride IVPB 100 mls INF ARLEY Administration Protocol Titrate Fentanyl Citrate 2,000 mcg/ 100 mls @ 0 mls/hr 02/04/20 14:30 02/09/20 04:47 Sodium Chloride IV 03/05/20 14:30 100 mls INF ARELY Administration Protocol Per Protocol Insulin Glargine 23 units/ 0.23 mls @ 0 mls/hr 02/08/20 21:00 02/09/20 11:18 Miscellaneous Medication SC 0.23 mls BID ARLEY Administration Insulin Human Lispro 0 units 01/31/20 22:19 02/09/20 04:55 Humalog 300 Units/3 Ml Vial SC 8 unit .MODERATE SLIDING SC PRN Administration Moderate Correctional Scale Insulin Human Lispro 0 units 01/31/20 22:19 02/01/20 21:36 Humalog 300 Units/3 Ml Vial SC 2 unit .BEDTIME SLIDING SC PRN Administration Bedtime Correctional Scale Levothyroxine Sodium 100 mcg 02/04/20 06:00 02/09/20 04:52 Levothyroxine 100 Mcg Sdv IVP 100 mcg 0600 ARLEY Administration Lorazepam 2 mg 02/04/20 14:30 02/07/20 20:27 Lorazepam 2 Mg/Ml Vial SLOW IVP 03/05/20 14:30 2 mg Q1H PRN Administration Breakthrough agitation Methylprednisolone Sodium Succinate 40 mg 02/02/20 12:00 02/09/20 11:19 Methylprednisolone Sod Succ 40 Mg Vial IVP 40 mg Q6HR ARLEY Administration Propofol 1,000 mg 02/04/20 14:30 02/09/20 11:16 Propofol 1,000 Mg/100 Ml Vial IV 03/05/20 14:30 1,000 mg INF PRN Administration TO ACHIEVE GOAL RASS Protocol Quetiapine Fumarate 25 mg 02/02/20 09:00 02/09/20 11:21 Quetiapine Fumarate 25 Mg Tab PO 25 mg BID ARLEY Administration Rosuvastatin Calcium 10 mg 02/01/20 09:00 02/09/20 11:21 Rosuvastatin 10 Mg Tab PO 10 mg DAILY ARLEY Administration Sterile Water 10 ml 02/06/20 00:18 02/07/20 04:21 Sterile Water 10 Ml Vial FS 10 ml PRN PRN Administration FOR VEC RECONST. - Exam General - other findings: Intubated ENT: normocephalic atraumatic Neck: supple Heart: RRR Respiratory: CTAB, normal chest expansion Gastrointestinal: soft Skin: no rashes Neurological - other findings: Unable to assess Psychiatric - other findings: Unable to assess Hosp A/P - Plan (1) Pneumonia due to COVID-19 virus Code(s): U07.1 - COVID-19; J12.89 - OTHER VIRAL PNEUMONIA Status: Acute (2) Respiratory failure with hypoxia Code(s): J96.91 - RESPIRATORY FAILURE, UNSPECIFIED WITH HYPOXIA Status: Acute Qualifiers: Chronicity: acute Qualified Code(s): J96.01 - Acute respiratory failure with hypoxia (3) Sepsis Code(s): A41.9 - SEPSIS, UNSPECIFIED ORGANISM Status: Acute Qualifiers: Sepsis acute organ dysfunction status: with acute organ dysfunction Severe sepsis acute organ dysfunction type: acute respiratory failure Acute respiratory failure type: with hypoxia Severe sepsis shock status: without septic shock (4) DM2 (diabetes mellitus, type 2) Status: Chronic Qualifiers: Diabetes mellitus intermediate insulin use: with intermediate use Diabetes mellitus complication status: with hyperglycemia Qualified Code(s): E11.65 - Type 2 diabetes mellitus with hyperglycemia; Z79.4 - shelter (current) use of insulin (5) Depression Code(s): F32.9 - MAJOR DEPRESSIVE DISORDER, SINGLE EPISODE, UNSPECIFIED Status: Chronic Qualifiers: Depression Type: unspecified Qualified Code(s): F32.9 - Major depressive disorder, single episode, unspecified (6) Morbid Obesity Code(s): E66.9 - OBESITY, UNSPECIFIED Status: Chronic Qualifiers: Obesity classification: adult class 3 (BMI >= 40) Body mass index: BMI 40.0-44.9 (7) Hypothyroidism Code(s): E03.9 - HYPOTHYROIDISM, UNSPECIFIED Status: Chronic Qualifiers: Hypothyroidism type: unspecified Qualified Code(s): E03.9 - Hypothyroidism, unspecified (8) Dyslipidemia Code(s): E78.5 - HYPERLIPIDEMIA, UNSPECIFIED Status: Chronic - Plan Continue Solu-Medrol and cefepime. Patient has completed course of remdesivir. Patient is currently on bilevel ventilator, Prognosis is very poor Palliative care following. Blood sugars very high, increase Lantus to 26 units twice daily. Hypertension is now controlled.
[2020-02-09] MEDS ORDERED: Pancrelipase DR 12,000 1 CAP FS PRN (19:15)
[2020-02-09] MEDS ORDERED: Sodium Bicarbonate Tab 325 MG TAB PER TUBE PRN (19:15)
[2020-02-09] MEDS: Insulin Glargine 26 UNITS in Pre-Filled Syringe 1 EACH SC SCH (20:38)
[2020-02-10] MEDS: methylPREDNISolone Sod Succ 40 MG VIAL IVP SCH ×4 (00:28→18:28)
[2020-02-10] MEDS: fentaNYL Citrate/PF 2,000 MCG in Sodium Chloride 0.9% 60 ML IV SCH ×2 (01:01→21:55)
[2020-02-10] MEDS: Propofol 1,000 MG/100 ML VIAL IV PRN (04:10)
[2020-02-10 05:52] LABS: Anion Gap 13 mmol/L (10-20); BUN (Urea Nitrogen) 38 mg/dL (9.8-20.1); Calc. Creatinine Clearance 139 mL/min (70-130); Calcium 7.9 mg/dL (7.8-10.44); Carbon Dioxide 30 mmol/L (23-31); Chloride 102 mmol/L (98-107); Glucose 287 mg/dL (83-110); Potassium 4.9 mmol/L (3.5-5.1); Sodium 140 mmol/L (136-145)
[2020-02-10] MEDS: HumaLOG 300 UNITS/3 ML VIAL SC PRN ×5 (05:59→22:51)
[2020-02-10 06:11] LABS: Band 2 % (5-11); Elliptocytes SLIGHT = 2-5 cells (100X) (0-1/hpf); Hemoglobin 10.4 g/dL (12.0-16.0); Hypochromia SLIGHT = 6-15 cells (100X) (0-5/hpf); Lymphocytes 13 % (21-51); MDiff Complete? YES; Mean Corpuscular HGB CONC 33.2 g/dL (32.0-36.0); Mean Corpuscular Volume 96.4 fL (78.0-98.0); Mean Platelet Volume 9.3 fL (7.4-10.4); Metamyelocyte 1 % (0-0); Neutrophil 84 % (42-75); Platelet Count 143 thou/uL (130-400); Platelet Morphology Comment Appears Adequate; RBC Distribution Width 14.3 % (11.5-14.5); Red Blood Cell (RBC) Count 3.25 mill/uL (4.20-5.40); White Blood Cell (WBC) Count 4.8 thou/uL (4.8-10.8)
[2020-02-10 06:38] LABS: Actual Bicarbonate (HCO3a) 29.9 mEq/L (22-28); Analyzer IN Cardio ER; Base Excess (BEa) 3.9 mEq/L (-2.0 to +3.0); CO2 Tension 52.1 mmHg (35.0-45.0); Calcium, Ionized (arterial) 1.23 mmol/L (1.12-1.30); Carboxyhemoglobin (COHb) 0.3 gm% (0.0-3.0); Hemoglobin (Hb) 11.2 g/dL (12.0-16.0); O2 Tension (PaO2), arterial 83.6 mmHg (> 70.0); Potassium - ABG Lab 5.06 mmol/L (3.70-5.30); pH, Arterial 7.38 (7.35-7.45)
[2020-02-10 06:39] LABS: Puncture Site RRA
[2020-02-10 06:40] LABS: ALV-art Gradient 136.475 mmHg (0-20)
--- NOTE | 2020-02-10 09:15 | RAD ---
Portable frontal chest radiograph: 02/10/2020 COMPARISON: 02/09/2020 HISTORY: Ventilated patient FINDINGS: Stable endotracheal tube and nasogastric tube. Motion artifact slightly limits detailed ass essment of the lung parenchyma. There is extensive interstitial and alveolar opacity bilaterally with a bibasilar predominance, left greater than right, not significantly changed. IMPRESSION: No significant interval change.
[2020-02-10] MEDS: Enoxaparin Sodium 40 MG/0.4 ML SYRINGE SC SCH (09:43)
[2020-02-10] MEDS: Atenolol 50 MG TAB PO SCH (09:44)
[2020-02-10] MEDS: Famotidine 20 MG TAB PO SCH ×3 (09:44→21:57)
[2020-02-10] MEDS: hydrALAZINE 25 MG TAB PER TUBE SCH ×5 (09:44→21:57)
[2020-02-10] MEDS: Rosuvastatin 10 MG TAB PO SCH (09:44)
[2020-02-10] MEDS: Alogliptin 6.25 MG TAB PO SCH (09:44)
[2020-02-10] MEDS: Citalopram 20 MG TAB PO SCH (09:44)
[2020-02-10] MEDS: Cefepime 1 GM in Sodium Chloride 0.9% 100 ML IVPB SCH ×2 (09:45→21:57)
[2020-02-10] MEDS: Insulin Glargine 26 UNITS in Pre-Filled Syringe 1 EACH SC SCH (09:50)
[2020-02-10] MEDS: Ascorbic Acid 500 mg Chewable Tablet PO SCH ×2 (09:51→10:53)
[2020-02-10] MEDS: Levothyroxine 100 MCG SDV IVP SCH (10:56)
--- NOTE | 2020-02-10 15:22 | PRG ---
DATE OF SERVICE: 02/10/2020 SUBJECTIVE: Patient remains in critical care unit. She is sedated for ventilation. OBJECTIVE: VITAL SIGNS: Heart rate 57, blood pressure 160/58. FiO2 is at 40%, blood pressure 139/53 earlier. Intake and output -585. LUNGS: Remarkable for coarse equal breath sounds. HEART: Regular rhythm. ABDOMEN: Soft. EXTREMITIES: Without asymmetry or significant edema. LABORATORY DATA: White count 4.8, hemoglobin 10.4, platelets 143. Electrolytes are normal. BUN 38, creatinine 0.67. PH 7.38, CO2 of 52, PO2 of 83. IMPRESSION: Respiratory failure secondary to COVID pneumonia. She is 10 days into the hospitalization. She had at least 2 days of symptoms prior to admission. She will remain in isolation for now. She will continue mechanical ventilation. Progress will be slow. Critical care time 30 min. Job ID: [id number] MTDD
--- NOTE | 2020-02-10 19:12 | PDOC.HOSPP ---
- Subjective Encounter Date: 02/10/20 Encounter Time: 12:00 Subjective: Patient seen for follow-up regarding COVID-19 pneumonia. Currently intubated. Could not complete review of systems. - Objective Vital Signs & Weight: Vital Signs (12 hours) Temp Pulse Resp BP 02/10/20 19:07 64 150/56 H 02/10/20 18:28 67 161/63 H 02/10/20 18:00 10 L 02/10/20 16:00 17 02/10/20 15:05 59 L 138/50 L 02/10/20 14:00 16 02/10/20 12:53 57 L 161/58 H 02/10/20 12:00 98.0 F 16 02/10/20 10:02 57 L 137/48 L 02/10/20 10:00 14 02/10/20 09:44 61 140/54 L 02/10/20 08:00 97.9 F 15 Weight Admit Weight 235 lb Weight 245 lb 5.992 oz Most Recent Monitor Data Heart Rate from ECG 70 NIBP 161/63 NIBP BP-Mean 95 Respiration from ECG 10 SpO2 98 I&O: 02/09/20 02/10/20 02/11/20 06:59 06:59 06:59 Intake Total 3103 2509.7 240 Output Total 1670 3095 725 Balance 1433 -585.3 -485 Result Diagrams: 02/10/20 04:15 02/10/20 04:15 Additional Labs: Accuchecks 02/10/20 02/09/20 15:38 20:45 POC Glucose 245 H 330 H Hospitalist ROS - Review of Systems ROS unobtainable: due to endotracheal tube - Medication Medications: Active Medications Generic Name Dose Route Start Last Admin Trade Name Freq PRN Reason Stop Dose Admin Alogliptin Benzoate 12.5 mg 02/02/20 09:00 02/10/20 09:44 Alogliptin 6.25 Mg Tab PO 12.5 mg DAILY ARLEY Administration Ascorbic Acid 1,000 mg 02/01/20 09:00 02/10/20 10:53 Ascorbic Acid 500 Mg Chewable Tablet PO 1,000 mg DAILY ARLEY Administration Atenolol 50 mg 02/01/20 09:00 02/10/20 09:44 Atenolol 50 Mg Tab PO 50 mg DAILY ARLEY Administration Citalopram Hydrobromide 20 mg 02/01/20 09:00 02/10/20 09:44 Citalopram 20 Mg Tab PO 20 mg DAILY ARLEY Administration Enalaprilat 1.25 mg 02/08/20 10:52 02/09/20 03:24 Enalaprilat Dihydrate 1.25 Mg/Ml Vial SLOW IVP 1.25 mg Q6H PRN Administration SBP Greater Than 170 Enoxaparin Sodium 40 mg 02/01/20 09:00 02/10/20 09:43 Enoxaparin Sodium 40 Mg/0.4 Ml Syringe SC 40 mg 0900 ARLEY Administration Famotidine 20 mg 02/01/20 09:00 02/10/20 09:44 Famotidine 20 Mg Tab PO 20 mg BID ARLEY Administration Guaifenesin/Dextromethorphan 15 ml 01/31/20 21:30 02/02/20 02:04 Guaifenesin Dm 100-10/5 Ml Udcup PO 15 ml Q4H PRN Administration Cough Haloperidol Lactate 5 mg 02/02/20 08:47 02/04/20 11:01 Haloperidol Lactate 5 Mg/Ml Vial SLOW IVP 5 mg Q4H PRN Administration Agitation Hydralazine HCl 25 mg 02/08/20 13:00 02/10/20 18:28 Hydralazine 25 Mg Tab PER TUBE 25 mg QID ARLYE Administration Cefepime HCl 1 gm/ Sodium 100 mls @ 200 mls/hr 02/02/20 10:00 02/10/20 09:45 Chloride IVPB 100 mls 1000,2200 ARLEY Administration Dexmedetomidine HCl 400 mcg/ 100 mls @ 0 mls/hr 02/02/20 14:45 02/04/20 21:46 Sodium Chloride IVPB 100 mls INF ARLEY Administration Protocol Titrate Fentanyl Citrate 2,000 mcg/ 100 mls @ 0 mls/hr 02/04/20 14:30 02/10/20 01:01 Sodium Chloride IV 03/05/20 14:30 100 mls INF ARLEY Administration Protocol Per Protocol Insulin Glargine 26 units/ 0.26 mls @ 0 mls/hr 02/09/20 21:00 02/10/20 09:50 Miscellaneous Medication SC 0.26 mls BID ARLEY Administration Insulin Human Lispro 0 units 01/31/20 22:19 02/10/20 05:59 Humalog 300 Units/3 Ml Vial SC 6 unit .MODERATE SLIDING SC PRN Administration Moderate Correctional Scale Insulin Human Lispro 0 units 01/31/20 22:19 02/01/20 21:36 Humalog 300 Units/3 Ml Vial SC 2 unit .BEDTIME SLIDING SC PRN Administration Bedtime Correctional Scale Levothyroxine Sodium 100 mcg 02/04/20 06:00 02/10/20 10:56 Levothyroxine 100 Mcg Sdv IVP 100 mcg 0600 ARLEY Administration Lorazepam 2 mg 02/04/20 14:30 02/07/20 20:27 Lorazepam 2 Mg/Ml Vial SLOW IVP 03/05/20 14:30 2 mg Q1H PRN Administration Breakthrough agitation Methylprednisolone Sodium Succinate 40 mg 02/02/20 12:00 02/10/20 18:28 Methylprednisolone Sod Succ 40 Mg Vial IVP 40 mg Q6HR ARLEY Administration Propofol 1,000 mg 02/04/20 14:30 02/10/20 04:10 Propofol 1,000 Mg/100 Ml Vial IV 03/05/20 14:30 1,000 mg INF PRN Administration TO ACHIEVE GOAL RASS Protocol Quetiapine Fumarate 25 mg 02/02/20 09:00 02/10/20 09:44 Quetiapine Fumarate 25 Mg Tab PO 25 mg BID ARLEY Administration Rosuvastatin Calcium 10 mg 02/01/20 09:00 02/10/20 09:44 Rosuvastatin 10 Mg Tab PO 10 mg DAILY ARLEY Administration Sterile Water 10 ml 02/06/20 00:18 02/07/20 04:21 Sterile Water 10 Ml Vial FS 10 ml PRN PRN Administration FOR VEC RECONST. - Exam General - other findings: Debated and mechanically ventilated Neck: no thyromegaly Heart: RRR Respiratory: CTAB Gastrointestinal: soft Skin: no rashes Psychiatric - other findings: Unable to assess Hosp A/P - Plan (1) Pneumonia due to COVID-19 virus Code(s): U07.1 - COVID-19; J12.89 - OTHER VIRAL PNEUMONIA Status: Acute (2) Respiratory failure with hypoxia Code(s): J96.91 - RESPIRATORY FAILURE, UNSPECIFIED WITH HYPOXIA Status: Acute Qualifiers: Chronicity: acute Qualified Code(s): J96.01 - Acute respiratory failure with hypoxia (3) Sepsis Code(s): A41.9 - SEPSIS, UNSPECIFIED ORGANISM Status: Acute Qualifiers: Sepsis acute organ dysfunction status: with acute organ dysfunction Severe sepsis acute organ dysfunction type: acute respiratory failure Acute respiratory failure type: with hypoxia Severe sepsis shock status: without septic shock (4) DM2 (diabetes mellitus, type 2) Status: Chronic Qualifiers: Diabetes mellitus penitentiary insulin use: with penitentiary use Diabetes mellitus complication status: with hyperglycemia Qualified Code(s): E11.65 - Type 2 diabetes mellitus with hyperglycemia; Z79.4 - [facility] (current) use of insulin (5) Depression Code(s): F32.9 - MAJOR DEPRESSIVE DISORDER, SINGLE EPISODE, UNSPECIFIED Status: Chronic Qualifiers: Depression Type: unspecified Qualified Code(s): F32.9 - Major depressive disorder, single episode, unspecified (6) Morbid Obesity Code(s): E66.9 - OBESITY, UNSPECIFIED Status: Chronic Qualifiers: Obesity classification: adult class 3 (BMI >= 40) Body mass index: BMI 40.0-44.9 (7) Hypothyroidism Code(s): E03.9 - HYPOTHYROIDISM, UNSPECIFIED Status: Chronic Qualifiers: Hypothyroidism type: unspecified Qualified Code(s): E03.9 - Hypothyroidism, unspecified (8) Dyslipidemia Code(s): E78.5 - HYPERLIPIDEMIA, UNSPECIFIED Status: Chronic - Plan Patient is currently on cefepime and Solu-Medrol. Patient has completed course of remdesivir. Patient is currently on bilevel ventilator, Prognosis is very poor Palliative care following. Blood sugars very high, increase Lantus to 30 units twice daily, change insulin sliding scale to aggressive scale.. Blood pressure still high, increase hydralazine to 50 mg 4 times a day.
[2020-02-10] MEDS: Insulin Glargine 30 UNITS in Pre-Filled Syringe SC SCH (20:47)
[2020-02-11] MEDS: methylPREDNISolone Sod Succ 40 MG VIAL IVP SCH ×5 (00:47→23:58)
[2020-02-11] MEDS: Propofol 1,000 MG/100 ML VIAL IV PRN (02:38)
[2020-02-11 05:27] LABS: Anion Gap 11 mmol/L (10-20); BUN (Urea Nitrogen) 37 mg/dL (9.8-20.1); Calc. Creatinine Clearance 119 mL/min (70-130); Calcium 8.8 mg/dL (7.8-10.44); Carbon Dioxide 34 mmol/L (23-31); Chloride 104 mmol/L (98-107); Glucose 276 mg/dL (83-110); Potassium 5.4 mmol/L (3.5-5.1); Sodium 144 mmol/L (136-145)
[2020-02-11 05:42] LABS: Hemoglobin 11.4 g/dL (12.0-16.0); Lymphocytes 5 % (21-51); MDiff Complete? YES; Mean Corpuscular HGB CONC 31.3 g/dL (32.0-36.0); Mean Corpuscular Hemoglobin 30.3 pg (27.0-31.0); Mean Corpuscular Volume 96.8 fL (78.0-98.0); Metamyelocyte 1 % (0-0); Monocytes 4 % (0-10); Neutrophil 90 % (42-75); Platelet Count 146 thou/uL (130-400); Platelet Morphology Comment Appears Adequate; RBC Distribution Width 14.6 % (11.5-14.5); RBC Morphology Normal; Red Blood Cell (RBC) Count 3.77 mill/uL (4.20-5.40); White Blood Cell (WBC) Count 6.5 thou/uL (4.8-10.8)
[2020-02-11] MEDS: HumaLOG 300 UNITS/3 ML VIAL SC PRN ×3 (06:29→19:00)
[2020-02-11] MEDS: Levothyroxine 100 MCG SDV IVP SCH (06:29)
[2020-02-11 08:55] LABS: Actual Bicarbonate (HCO3a) 31.6 mEq/L (22-28); Base Excess (BEa) 5.9 mEq/L (-2.0 to +3.0); CO2 Tension 50.7 mmHg (35.0-45.0); Calcium, Ionized (arterial) 1.27 mmol/L (1.12-1.30); Carboxyhemoglobin (COHb) 0.3 gm% (0.0-3.0); Hemoglobin (Hb) 11.3 g/dL (12.0-16.0); O2 Tension (PaO2), arterial 95.9 mmHg (> 70.0); Potassium - ABG Lab 5.19 mmol/L (3.70-5.30); pH, Arterial 7.41 (7.35-7.45)
[2020-02-11] MEDS: Insulin Glargine 30 UNITS in Pre-Filled Syringe SC SCH ×2 (09:00→11:24)
[2020-02-11] MEDS: Alogliptin 6.25 MG TAB PO SCH ×2 (09:00→11:24)
[2020-02-11 09:15] LABS: Puncture Site RRA
[2020-02-11 09:16] LABS: ALV-art Gradient 125.925 mmHg (0-20)
[2020-02-11] MEDS: Citalopram 20 MG TAB PO SCH (09:53)
[2020-02-11] MEDS: Enoxaparin Sodium 40 MG/0.4 ML SYRINGE SC SCH (09:53)
[2020-02-11] MEDS: Famotidine 20 MG TAB PO SCH ×2 (09:53→20:07)
[2020-02-11] MEDS: hydrALAZINE 25 MG TAB PER TUBE SCH ×4 (09:53→20:07)
[2020-02-11] MEDS: Atenolol 50 MG TAB PO SCH (09:54)
[2020-02-11] MEDS: Ascorbic Acid 500 mg Chewable Tablet PO SCH (09:54)
[2020-02-11] MEDS: Rosuvastatin 10 MG TAB PO SCH (09:54)
[2020-02-11] MEDS: Cefepime 1 GM in Sodium Chloride 0.9% 100 ML IVPB SCH ×2 (10:40→20:17)
--- NOTE | 2020-02-11 14:34 | PRG ---
DATE OF SERVICE: 02/11/2020 SUBJECTIVE: Esperanza remains in critical care unit. Mechanically ventilated. OBJECTIVE: VITAL SIGNS: Heart rate is in 60s, blood pressure 171/59, FiO2 is at 40%. LUNGS: Clear. HEART: Regular rhythm. ABDOMEN: Soft. LABORATORY DATA: White count 6.5, hemoglobin 11.4, platelets 146. Sodium 144, potassium 5.4, chloride 104, bicarb 34, BUN 37, creatinine 0.7. Glucoses are over 250 for the most part. IMPRESSION: Respiratory failure secondary to COVID pneumonia. She is 13 days into her illness. We will continue current mechanical ventilation and support. Job ID: [id number]
--- NOTE | 2020-02-11 18:46 | PDOC.HOSPP ---
- Subjective Encounter Date: 02/11/20 Encounter Time: 11:30 Subjective: Patient seen for follow-up regarding COVID-19 pneumonia. She is intubated, could not complete review of systems. - Objective Vital Signs & Weight: Vital Signs (12 hours) Temp Pulse Resp BP Pulse Ox 02/11/20 17:58 62 149/62 H 02/11/20 16:00 13 02/11/20 15:01 62 149/62 H 02/11/20 14:00 10 L 02/11/20 13:52 63 02/11/20 12:41 69 171/59 H 02/11/20 12:00 98.3 F 16 02/11/20 11:33 60 02/11/20 10:00 10 L 02/11/20 09:54 69 146/55 H 02/11/20 09:53 69 146/55 H 02/11/20 08:00 98.2 F 10 L 100 Weight Admit Weight 235 lb Weight 245 lb 5.992 oz Most Recent Monitor Data Heart Rate from ECG 56 NIBP 139/56 NIBP BP-Mean 83 Respiration from ECG 18 SpO2 100 I&O: 02/10/20 02/11/20 02/12/20 06:59 06:59 06:59 Intake Total 2509.7 2161.4 480 Output Total 3095 1970 665 Balance -585.3 191.4 -185 Result Diagrams: 02/11/20 04:51 02/11/20 04:51 Additional Labs: Accuchecks 02/11/20 02/11/20 02/10/20 13:12 04:51 22:24 POC Glucose 254 H 239 H 270 H I reviewed patient's labs and MAR EKG Reviewed by me: Yes (Normal sinus rhythm on telemetry) Hospitalist ROS - Review of Systems ROS unobtainable: due to endotracheal tube - Medication Medications: Active Medications Generic Name Dose Route Start Last Admin Trade Name Freq PRN Reason Stop Dose Admin Alogliptin Benzoate 12.5 mg 02/02/20 09:00 02/11/20 11:24 Alogliptin 6.25 Mg Tab PO 12.5 mg DAILY ARLEY Administration Ascorbic Acid 1,000 mg 02/01/20 09:00 02/11/20 09:54 Ascorbic Acid 500 Mg Chewable Tablet PO 1,000 mg DAILY ARLEY Administration Atenolol 50 mg 02/01/20 09:00 02/11/20 09:54 Atenolol 50 Mg Tab PO 50 mg DAILY ARLEY Administration Citalopram Hydrobromide 20 mg 02/01/20 09:00 02/11/20 09:53 Citalopram 20 Mg Tab PO 20 mg DAILY ARLEY Administration Enalaprilat 1.25 mg 02/08/20 10:52 02/09/20 03:24 Enalaprilat Dihydrate 1.25 Mg/Ml Vial SLOW IVP 1.25 mg Q6H PRN Administration SBP Greater Than 170 Enoxaparin Sodium 40 mg 02/01/20 09:00 02/11/20 09:53 Enoxaparin Sodium 40 Mg/0.4 Ml Syringe SC 40 mg 0900 ARLEY Administration Famotidine 20 mg 02/01/20 09:00 02/11/20 09:53 Famotidine 20 Mg Tab PO 20 mg BID ARLEY Administration Guaifenesin/Dextromethorphan 15 ml 01/31/20 21:30 02/02/20 02:04 Guaifenesin Dm 100-10/5 Ml Udcup PO 15 ml Q4H PRN Administration Cough Haloperidol Lactate 5 mg 02/02/20 08:47 02/04/20 11:01 Haloperidol Lactate 5 Mg/Ml Vial SLOW IVP 5 mg Q4H PRN Administration Agitation Hydralazine HCl 50 mg 02/10/20 21:00 02/11/20 17:58 Hydralazine 25 Mg Tab PER TUBE 50 mg QID ARLEY Administration Cefepime HCl 1 gm/ Sodium 100 mls @ 200 mls/hr 02/02/20 10:00 02/11/20 10:40 Chloride IVPB 100 mls 1000,2200 ARLEY Administration Dexmedetomidine HCl 400 mcg/ 100 mls @ 0 mls/hr 02/02/20 14:45 02/04/20 21:46 Sodium Chloride IVPB 100 mls INF ARLEY Administration Protocol Titrate Fentanyl Citrate 2,000 mcg/ 100 mls @ 0 mls/hr 02/04/20 14:30 02/10/20 21:55 Sodium Chloride IV 03/05/20 14:30 100 mls INF ARLEY Administration Protocol Per Protocol Insulin Glargine 30 units/ 0.3 mls @ 0 mls/hr 02/10/20 21:00 02/11/20 11:24 Miscellaneous Medication SC 0.3 mls BID ARLEY Administration Insulin Human Lispro 0 units 01/31/20 22:19 02/01/20 21:36 Humalog 300 Units/3 Ml Vial SC 2 unit .BEDTIME SLIDING SC PRN Administration Bedtime Correctional Scale Insulin Human Lispro 0 units 02/10/20 19:11 02/11/20 13:15 Humalog 300 Units/3 Ml Vial SC 9 unit .AGGRESSIVE SLIDING PRN Administration Aggressive Correctional Scale Levothyroxine Sodium 100 mcg 02/04/20 06:00 02/11/20 06:29 Levothyroxine 100 Mcg Sdv IVP 100 mcg 0600 ARLEY Administration Lorazepam 2 mg 02/04/20 14:30 02/07/20 20:27 Lorazepam 2 Mg/Ml Vial SLOW IVP 03/05/20 14:30 2 mg Q1H PRN Administration Breakthrough agitation Methylprednisolone Sodium Succinate 40 mg 02/02/20 12:00 02/11/20 17:58 Methylprednisolone Sod Succ 40 Mg Vial IVP 40 mg Q6HR ARLEY Administration Propofol 1,000 mg 02/04/20 14:30 02/11/20 02:38 Propofol 1,000 Mg/100 Ml Vial IV 03/05/20 14:30 1,000 mg INF PRN Administration TO ACHIEVE GOAL RASS Protocol Quetiapine Fumarate 25 mg 02/02/20 09:00 02/11/20 09:54 Quetiapine Fumarate 25 Mg Tab PO 25 mg BID ARLEY Administration Rosuvastatin Calcium 10 mg 02/01/20 09:00 02/11/20 09:54 Rosuvastatin 10 Mg Tab PO 10 mg DAILY ARLEY Administration Sterile Water 10 ml 02/06/20 00:18 02/07/20 04:21 Sterile Water 10 Ml Vial FS 10 ml PRN PRN Administration FOR VEC RECONST. - Exam General - other findings: Intubated Eye: anicteric sclera ENT: moist mucosa Neck: supple Heart: RRR Respiratory - other findings: Bilateral crackles Gastrointestinal: soft, non-tender Skin: no rashes Psychiatric - other findings: Could not assess Hosp A/P - Plan -Assessment (1) Pneumonia due to COVID-19 virus Code(s): U07.1 - COVID-19; J12.89 - OTHER VIRAL PNEUMONIA Status: Acute (2) Respiratory failure with hypoxia Code(s): J96.91 - RESPIRATORY FAILURE, UNSPECIFIED WITH HYPOXIA Status: Acute Qualifiers: Chronicity: acute Qualified Code(s): J96.01 - Acute respiratory failure with hypoxia (3) Sepsis Code(s): A41.9 - SEPSIS, UNSPECIFIED ORGANISM Status: Acute Qualifiers: Sepsis acute organ dysfunction status: with acute organ dysfunction Severe sepsis acute organ dysfunction type: acute respiratory failure Acute respira tory failure type: with hypoxia Severe sepsis shock status: without septic shock (4) DM2 (diabetes mellitus, type 2) Status: Chronic Qualifiers: Diabetes mellitus terminal make up operator insulin use: with terminal make up operator use Diabetes mellitus complication status: with hyperglycemia Qualified Code(s): E11.65 - Type 2 diabetes mellitus with hyperglycemia; Z79.4 - medical terminologist (current) use of insulin (5) Depression Code(s): F32.9 - MAJOR DEPRESSIVE DISORDER, SINGLE EPISODE, UNSPECIFIED Status: Chronic Qualifiers: Depression Type: unspecified Qualified Code(s): F32.9 - Major depressive disorder, single episode, unspecified (6) Morbid Obesity Code(s): E66.9 - OBESITY, UNSPECIFIED Status: Chronic Qualifiers: Obesity classification: adult class 3 (BMI >= 40) Body mass index: BMI 40.0-44.9 (7) Hypothyroidism Code(s): E03.9 - HYPOTHYROIDISM, UNSPECIFIED Status: Chronic Qualifiers: Hypothyroidism type: unspecified Qualified Code(s): E03.9 - Hypothyroidism, unspecified (8) Dyslipidemia Code(s): E78.5 - HYPERLIPIDEMIA, UNSPECIFIED Status: Chronic - Plan Administer IV Humulin R followed by D50 to counter hyperkalemia. Continue cefepime and Solu-Medrol. Patient has completed course of remdesivir. Patient is currently on bilevel ventilator. Prognosis is very poor Palliative care following. Blood sugars very high, increase Lantus to 35 units twice daily. Hypertension controlled
[2020-02-11] MEDS ORDERED: Dextrose 50% Abboject 50 ML SYRINGE SLOW IVP PRN (18:47)
[2020-02-11] MEDS ORDERED: Insulin Regular 300 UNITS/3 ML VIAL IVP SCH (19:00)
[2020-02-11] MEDS: Insulin Glargine 35 UNITS in Pre-Filled Syringe SC SCH (20:38)
[2020-02-11] MEDS: fentaNYL Citrate/PF 2,000 MCG in Sodium Chloride 0.9% 60 ML IV SCH (23:58)
[2020-02-12] MEDS: HumaLOG 300 UNITS/3 ML VIAL SC PRN ×3 (00:13→10:28)
[2020-02-12 04:34] LABS: #Lymphocytes 0.5 thou/uL (1.20-3.40); #Monocytes 0.5 thou/uL (0.11-0.59); #Neutrophils 8.6 thou/uL (1.40-6.50); %Eosinophils 0.2 % (0.0-10.0); %Lymphocytes 5.2 % (21.0-51.0); %Monocytes 5.6 % (0.0-10.0); %Neutrophils 89.1 % (42.0-75.0); Hemoglobin 12.2 g/dL (12.0-16.0); Mean Corpuscular HGB CONC 31.6 g/dL (32.0-36.0); Mean Corpuscular Hemoglobin 30.6 pg (27.0-31.0); Mean Corpuscular Volume 96.8 fL (78.0-98.0); Mean Platelet Volume 9.1 fL (7.4-10.4); Platelet Count 160 thou/uL (130-400); RBC Distribution Width 14.7 % (11.5-14.5); Red Blood Cell (RBC) Count 3.98 mill/uL (4.20-5.40); White Blood Cell (WBC) Count 9.7 thou/uL (4.8-10.8)
[2020-02-12 05:09] LABS: Anion Gap 13 mmol/L (10-20); BUN (Urea Nitrogen) 34 mg/dL (9.8-20.1); Calc. Creatinine Clearance 136 mL/min (70-130); Calcium 8.9 mg/dL (7.8-10.44); Carbon Dioxide 34 mmol/L (23-31); Chloride 103 mmol/L (98-107); Glucose 186 mg/dL (83-110); Potassium 5.2 mmol/L (3.5-5.1); Sodium 145 mmol/L (136-145)
[2020-02-12] MEDS: methylPREDNISolone Sod Succ 40 MG VIAL IVP SCH ×3 (05:32→17:56)
[2020-02-12] MEDS: Levothyroxine 100 MCG SDV IVP SCH (05:32)
[2020-02-12] MEDS: Ascorbic Acid 500 mg Chewable Tablet PO SCH (08:10)
[2020-02-12] MEDS: Alogliptin 6.25 MG TAB PO SCH (08:10)
[2020-02-12] MEDS: Atenolol 50 MG TAB PO SCH (08:10)
[2020-02-12] MEDS: Citalopram 20 MG TAB PO SCH (08:11)
[2020-02-12] MEDS: Rosuvastatin 10 MG TAB PO SCH (08:11)
[2020-02-12] MEDS: Famotidine 20 MG TAB PO SCH ×2 (08:11→20:23)
[2020-02-12] MEDS: Insulin Glargine 35 UNITS in Pre-Filled Syringe SC SCH (08:11)
[2020-02-12] MEDS: Enoxaparin Sodium 40 MG/0.4 ML SYRINGE SC SCH (08:11)
[2020-02-12] MEDS: hydrALAZINE 25 MG TAB PER TUBE SCH ×4 (08:11→20:24)
[2020-02-12 08:37] LABS: Actual Bicarbonate (HCO3a) 32.5 mEq/L (22-28); Base Excess (BEa) 6.9 mEq/L (-2.0 to +3.0); CO2 Tension 50.5 mmHg (35.0-45.0); Calcium, Ionized (arterial) 1.27 mmol/L (1.12-1.30); Carboxyhemoglobin (COHb) 0.8 gm% (0.0-3.0); Hemoglobin (Hb) 13.1 g/dL (12.0-16.0); Potassium - ABG Lab 5.38 mmol/L (3.70-5.30); pH, Arterial 7.43 (7.35-7.45)
[2020-02-12 08:38] LABS: ALV-art Gradient 122.075 mmHg (0-20); Puncture Site RRA
[2020-02-12] MEDS: Cefepime 1 GM in Sodium Chloride 0.9% 100 ML IVPB SCH ×2 (10:13→20:32)
[2020-02-12] MEDS: Propofol 1,000 MG/100 ML VIAL IV PRN (12:53)
--- NOTE | 2020-02-12 13:14 | PRG ---
DATE OF SERVICE: 02/12/2020 SUBJECTIVE: Eber Mata'robyn gas exchange remains stable. Her exhaled volumes are increasing, so we switched her back to volume ventilation. OBJECTIVE: VITAL SIGNS: Blood pressure 154/51, heart rates in the 60s, respiratory rates in the teens, and FiO2 is 40%. LUNGS: Clear. HEART: Regular rhythm. ABDOMEN: Soft. LABORATORY DATA: White count 9.7, hemoglobin 12.2, and platelets 160. Creatinine is 0.64, potassium 5.2. PH 7.43, CO2 of 50, pO2 of 100. IMPRESSION: COVID pneumonia, clinically improving. May be able to do a spontaneous breathing trial in the morning. We will decrease her rate to 6 and tidal volume of 500. In the morning, we will place her on 10/5 and turn her rate off and see how she does with minimal sedation. Critical care time 30 min. Job ID: [id number] MTDD
[2020-02-12 13:53] VITALS: BMI 42.1
--- NOTE | 2020-02-12 17:31 | PDOC.HOSPP ---
- Subjective Encounter Date: 02/12/20 Encounter Time: 13:00 Subjective: Patient seen for follow-up regarding hypoxic respiratory failure. Patient is intubated, review of systems was not completed. - Objective Vital Signs & Weight: Vital Signs (12 hours) Temp Pulse Resp BP Pulse Ox 02/12/20 16:00 98.6 F 11 L 02/12/20 14:28 63 136/46 L 02/12/20 14:00 18 02/12/20 12:52 67 125/50 L 02/12/20 12:00 98.4 F 9 L 02/12/20 10:27 67 154/51 H 02/12/20 10:00 13 02/12/20 08:28 72 161/69 H 02/12/20 08:11 66 150/63 H 02/12/20 08:10 66 156/65 H 02/12/20 08:00 98.9 F 11 L 97 02/12/20 06:00 13 Weight Admit Weight 235 lb Weight 245 lb 5.992 oz Most Recent Monitor Data Heart Rate from ECG 72 NIBP 186/73 NIBP BP-Mean 110 Respiration from ECG 16 SpO2 98 I&O: 02/11/20 02/12/20 02/13/20 06:59 06:59 06:59 Intake Total 2161.4 1648.4 160 Output Total 1970 1790 750 Balance 191.4 -141.6 -590 Result Diagrams: 02/12/20 04:00 02/12/20 04:00 Additional Labs: Accuchecks 02/12/20 02/12/20 02/11/20 10:15 00:03 18:47 POC Glucose 243 H 223 H 225 H 02/10/20 02/08/20 02/07/20 18:43 03:53 20:36 POC Glucose 234 H 326 H 288 H Telemetry shows normal sinus rhythm EKG Reviewed by me: Yes (Telemetry shows normal sinus rhythm) Hospitalist ROS - Review of Systems ROS unobtainable: due to endotracheal tube - Medication Medications: Active Medications Generic Name Dose Route Start Last Admin Trade Name Freq PRN Reason Stop Dose Admin Alogliptin Benzoate 12.5 mg 02/02/20 09:00 02/12/20 08:10 Alogliptin 6.25 Mg Tab PO 12.5 mg DAILY ARLEY Administration Ascorbic Acid 1,000 mg 02/01/20 09:00 02/12/20 08:10 Ascorbic Acid 500 Mg Chewable Tablet PO 1,000 mg DAILY ARLEY Administration Atenolol 50 mg 02/01/20 09:00 02/12/20 08:10 Atenolol 50 Mg Tab PO 50 mg DAILY ARLEY Administration Citalopram Hydrobromide 20 mg 02/01/20 09:00 02/12/20 08:11 Citalopram 20 Mg Tab PO 20 mg DAILY ARLEY Administration Enalaprilat 1.25 mg 02/08/20 10:52 02/09/20 03:24 Enalaprilat Dihydrate 1.25 Mg/Ml Vial SLOW IVP 1.25 mg Q6H PRN Administration SBP Greater Than 170 Enoxaparin Sodium 40 mg 02/01/20 09:00 02/12/20 08:11 Enoxaparin Sodium 40 Mg/0.4 Ml Syringe SC 40 mg 0900 ARLEY Administration Famotidine 20 mg 02/01/20 09:00 02/12/20 08:11 Famotidine 20 Mg Tab PO 20 mg BID ARLEY Administration Guaifenesin/Dextromethorphan 15 ml 01/31/20 21:30 02/02/20 02:04 Guaifenesin Dm 100-10/5 Ml Udcup PO 15 ml Q4H PRN Administration Cough Haloperidol Lactate 5 mg 02/02/20 08:47 02/04/20 11:01 Haloperidol Lactate 5 Mg/Ml Vial SLOW IVP 5 mg Q4H PRN Administration Agitation Hydralazine HCl 50 mg 02/10/20 21:00 02/12/20 12:52 Hydralazine 25 Mg Tab PER TUBE 50 mg QID ARLEY Administration Cefepime HCl 1 gm/ Sodium 100 mls @ 200 mls/hr 02/02/20 10:00 02/12/20 10:13 Chloride IVPB 100 mls 1000,2200 ARLEY Administration Dexmedetomidine HCl 400 mcg/ 100 mls @ 0 mls/hr 02/02/20 14:45 02/04/20 21:46 Sodium Chloride IVPB 100 mls INF ARLEY Administration Protocol Titrate Fentanyl Citrate 2,000 mcg/ 100 mls @ 0 mls/hr 02/04/20 14:30 02/11/20 23:58 Sodium Chloride IV 03/05/20 14:30 100 mls INF ARLEY Administration Protocol Per Protocol Insulin Glargine 35 units/ 0.35 mls @ 0 mls/hr 02/11/20 21:00 02/12/20 08:11 Miscellaneous Medication SC 0.35 mls BID ARLEY Administration Insulin Human Lispro 0 units 01/31/20 22:19 02/01/20 21:36 Humalog 300 Units/3 Ml Vial SC 2 unit .BEDTIME SLIDING SC PRN Administration Bedtime Correctional Scale Insulin Human Lispro 0 units 02/10/20 19:11 02/12/20 10:28 Humalog 300 Units/3 Ml Vial SC 6 unit .AGGRESSIVE SLIDING PRN Administration Aggressive Correctional Scale Levothyroxine Sodium 100 mcg 02/04/20 06:00 02/12/20 05:32 Levothyroxine 100 Mcg Sdv IVP 100 mcg 0600 ARLEY Administration Lorazepam 2 mg 02/04/20 14:30 02/07/20 20:27 Lorazepam 2 Mg/Ml Vial SLOW IVP 03/05/20 14:30 2 mg Q1H PRN Administration Breakthrough agitation Methylprednisolone Sodium Succinate 40 mg 02/02/20 12:00 02/12/20 12:53 Methylprednisolone Sod Succ 40 Mg Vial IVP 40 mg Q6HR ARLEY Administration Propofol 1,000 mg 02/04/20 14:30 02/12/20 12:53 Propofol 1,000 Mg/100 Ml Vial IV 03/05/20 14:30 1,000 mg INF PRN Administration TO ACHIEVE GOAL RASS Protocol Quetiapine Fumarate 25 mg 02/02/20 09:00 02/12/20 08:11 Quetiapine Fumarate 25 Mg Tab PO 25 mg BID ARLEY Administration Rosuvastatin Calcium 10 mg 02/01/20 09:00 02/12/20 08:11 Rosuvastatin 10 Mg Tab PO 10 mg DAILY ARLEY Administration Sterile Water 10 ml 02/06/20 00:18 02/07/20 04:21 Sterile Water 10 Ml Vial FS 10 ml PRN PRN Administration FOR VEC RECONST. - Exam General - other findings: Debated ENT - other findings: Endotracheal tube Neck: no thyromegaly Heart: RRR Respiratory: CTAB Gastrointestinal: soft Neurological - other findings: Unable to assess Psychiatric - other findings: Unable to assess Hosp A/P - Plan -Assessment (1) Pneumonia due to COVID-19 virus Code(s): U07.1 - COVID-19; J12.89 - OTHER VIRAL PNEUMONIA Status: Acute (2) Respiratory failure with hypoxia Code(s): J96.91 - RESPIRATORY FAILURE, UNSPECIFIED WITH HYPOXIA Status: Acute Qualifiers: Chronicity: acute Qualified Code(s): J96.01 - Acute respiratory failure with hypoxia (3) Sepsis Code(s): A41.9 - SEPSIS, UNSPECIFIED ORGANISM Status: Acute Qualifiers: Sepsis acute organ dysfunction status: with acute organ dysfunction Severe sepsis acute organ dysfunction type: acute respiratory failure Acute respiratory failure type: with hypoxia Severe sepsis shock status: without septic shock (4) DM2 (diabetes mellitus, type 2) Status: Chronic Qualifiers: Diabetes mellitus intermediate manager insulin use: with intermediate manager use Diabetes mellitus complication status: with hyperglycemia Qualified Code(s): E11.65 - Type 2 diabetes mellitus with hyperglycemia; Z79.4 - alf (current) use of insulin (5) Depression Code(s): F32.9 - MAJOR DEPRESSIVE DISORDER, SINGLE EPISODE, UNSPECIFIED Status: Chronic Qualifiers: Depression Type: unspecified Qualified Code(s): F32.9 - Major depressive disorder, single episode, unspecified (6) Morbid Obesity Code(s): E66.9 - OBESITY, UNSPECIFIED Status: Chronic Qualifiers: Obesity classification: adult class 3 (BMI >= 40) Body mass index: BMI 40.0-44.9 (7) Hypothyroidism Code(s): E03.9 - HYPOTHYROIDISM, UNSPECIFIED Status: Chronic Qualifiers: Hypothyroidism type: unspecified Qualified Code(s): E03.9 - Hypothyroidism, unspecified (8) Dyslipidemia Code(s): E78.5 - HYPERLIPIDEMIA, UNSPECIFIED Status: Chronic - Plan Continue cefepime and Solu-Medrol. Patient has completed course of remdesivir. Patient is currently on bilevel ventilator. Palliative care following. Blood sugars very high, increase Lantus to 38 units twice daily. Hypertension controlled
[2020-02-12] MEDS ORDERED: Polyethylene Glycol 3350 17 GM Packet PER TUBE SCH (18:00)
[2020-02-12] MEDS: Insulin Glargine 38 UNITS in Pre-Filled Syringe 1 EACH SC SCH (20:25)
[2020-02-13] MEDS: methylPREDNISolone Sod Succ 40 MG VIAL IVP SCH ×4 (00:40→15:54)
[2020-02-13] MEDS: Propofol 1,000 MG/100 ML VIAL IV PRN ×3 (01:55→13:19)
[2020-02-13] MEDS: Levothyroxine 100 MCG SDV IVP SCH ×2 (05:30→08:33)
[2020-02-13 06:24] LABS: #Lymphocytes 0.6 thou/uL (1.20-3.40); #Monocytes 0.5 thou/uL (0.11-0.59); #Neutrophils 9.8 thou/uL (1.40-6.50); %Basophils 0.2 % (0.0-1.0); %Eosinophils 0.2 % (0.0-10.0); %Lymphocytes 5.2 % (21.0-51.0); %Monocytes 4.6 % (0.0-10.0); %Neutrophils 89.9 % (42.0-75.0); Hemoglobin 12.5 g/dL (12.0-16.0); Mean Corpuscular HGB CONC 31.6 g/dL (32.0-36.0); Mean Corpuscular Hemoglobin 30.6 pg (27.0-31.0); Mean Corpuscular Volume 96.8 fL (78.0-98.0); Mean Platelet Volume 9.5 fL (7.4-10.4); Platelet Count 157 thou/uL (130-400); RBC Distribution Width 14.6 % (11.5-14.5); Red Blood Cell (RBC) Count 4.09 mill/uL (4.20-5.40); White Blood Cell (WBC) Count 10.8 thou/uL (4.8-10.8)
[2020-02-13] MEDS: HumaLOG 300 UNITS/3 ML VIAL SC PRN ×3 (06:28→20:11)
[2020-02-13 06:44] LABS: Anion Gap 14 mmol/L (10-20); BUN (Urea Nitrogen) 34 mg/dL (9.8-20.1); Calc. Creatinine Clearance 138 mL/min (70-130); Calcium 8.9 mg/dL (7.8-10.44); Carbon Dioxide 33 mmol/L (23-31); Chloride 101 mmol/L (98-107); Glucose 270 mg/dL (83-110); Potassium 5.5 mmol/L (3.5-5.1); Sodium 142 mmol/L (136-145)
[2020-02-13 07:19] LABS: ALV-art Gradient 139.575 mmHg (0-20); Actual Bicarbonate (HCO3a) 35.3 mEq/L (22-28); Base Excess (BEa) 9.7 mEq/L (-2.0 to +3.0); CO2 Tension 51.7 mmHg (35.0-45.0); Calcium, Ionized (arterial) 1.28 mmol/L (1.12-1.30); Carboxyhemoglobin (COHb) 0.9 gm% (0.0-3.0); Hemoglobin (Hb) 13.4 g/dL (12.0-16.0); Potassium - ABG Lab 5.25 mmol/L (3.70-5.30); Puncture Site RRA; pH, Arterial 7.45 (7.35-7.45)
[2020-02-13] MEDS: hydrALAZINE 25 MG TAB PER TUBE SCH ×4 (08:31→19:41)
[2020-02-13] MEDS: Rosuvastatin 10 MG TAB PO SCH (08:31)
[2020-02-13] MEDS: Atenolol 50 MG TAB PO SCH (08:32)
[2020-02-13] MEDS: Famotidine 20 MG TAB PO SCH ×2 (08:32→19:40)
[2020-02-13] MEDS: Insulin Glargine 38 UNITS in Pre-Filled Syringe 1 EACH SC SCH ×2 (08:32→19:40)
[2020-02-13] MEDS: Cefepime 1 GM in Sodium Chloride 0.9% 100 ML IVPB SCH (08:32)
[2020-02-13] MEDS: Citalopram 20 MG TAB PO SCH (08:32)
[2020-02-13] MEDS: Enoxaparin Sodium 40 MG/0.4 ML SYRINGE SC SCH (08:33)
[2020-02-13] MEDS: Polyethylene Glycol 3350 17 GM Packet PER TUBE SCH (08:33)
[2020-02-13] MEDS: Alogliptin 6.25 MG TAB PO SCH (08:33)
[2020-02-13] MEDS: Ascorbic Acid 500 mg Chewable Tablet PO SCH (09:31)
--- NOTE | 2020-02-13 18:22 | PDOC.HOSPP ---
- Subjective Encounter Date: 02/13/20 Encounter Time: 18:20 Subjective: Patient seen for follow-up regarding COVID-19 pneumonia. Patient continues to be intubated, did not complete ROS. - Objective Vital Signs & Weight: Vital Signs (12 hours) Temp Pulse Resp BP Pulse Ox 02/13/20 17:45 98.8 F 02/13/20 15:22 62 156/60 H 02/13/20 14:24 62 156/60 H 02/13/20 13:06 64 158/62 H 02/13/20 11:45 92 160/54 H 02/13/20 10:59 98.7 F 02/13/20 10:16 92 160/54 H 02/13/20 09:59 99.0 F 02/13/20 09:00 99.0 F 02/13/20 08:32 66 188/79 H 02/13/20 08:31 66 188/79 H 02/13/20 08:00 99.0 F 14 97 02/13/20 07:08 66 188/79 H Weight Admit Weight 235 lb Weight 245 lb 5.992 oz Most Recent Monitor Data Heart Rate from ECG 65 NIBP 151/58 NIBP BP-Mean 89 Respiration from ECG 16 SpO2 100 I&O: 02/12/20 02/13/20 02/14/20 06:59 06:59 06:59 Intake Total 1648.4 1398.7 1365 Output Total 1790 1800 930 Balance -141.6 -401.3 435 Result Diagrams: 02/13/20 06:00 02/13/20 03:44 Additional Labs: Accuchecks 02/13/20 02/13/20 02/13/20 16:01 09:43 06:08 POC Glucose 153 H 181 H 244 H 02/12/20 02/12/20 20:39 16:31 POC Glucose 191 H 198 H I reviewed patient's labs and MAR EKG Reviewed by me: Yes (Telemetry shows normal sinus rhythm) Hospitalist ROS - Review of Systems ROS unobtainable: due to endotracheal tube - Medication Medications: Active Medications Generic Name Dose Route Start Last Admin Trade Name Freq PRN Reason Stop Dose Admin Alogliptin Benzoate 12.5 mg 02/02/20 09:00 02/13/20 08:33 Alogliptin 6.25 Mg Tab PO 12.5 mg DAILY ARLEY Administration Ascorbic Acid 1,000 mg 02/01/20 09:00 02/13/20 09:31 Ascorbic Acid 500 Mg Chewable Tablet PO 1,000 mg DAILY ARLEY Administration Atenolol 50 mg 02/01/20 09:00 02/13/20 08:32 Atenolol 50 Mg Tab PO 50 mg DAILY ARLEY Administration Citalopram Hydrobromide 20 mg 02/01/20 09:00 02/13/20 08:32 Citalopram 20 Mg Tab PO 20 mg DAILY ARLEY Administration Enalaprilat 1.25 mg 02/08/20 10:52 02/09/20 03:24 Enalaprilat Dihydrate 1.25 Mg/Ml Vial SLOW IVP 1.25 mg Q6H PRN Administration SBP Greater Than 170 Enoxaparin Sodium 40 mg 02/01/20 09:00 02/13/20 08:33 Enoxaparin Sodium 40 Mg/0.4 Ml Syringe SC 40 mg 0900 ARLEY Administration Famotidine 20 mg 02/01/20 09:00 02/13/20 08:32 Famotidine 20 Mg Tab PO 20 mg BID ARLEY Administration Guaifenesin/Dextromethorphan 15 ml 01/31/20 21:30 02/02/20 02:04 Guaifenesin Dm 100-10/5 Ml Udcup PO 15 ml Q4H PRN Administration Cough Haloperidol Lactate 5 mg 02/02/20 08:47 02/04/20 11:01 Haloperidol Lactate 5 Mg/Ml Vial SLOW IVP 5 mg Q4H PRN Administration Agitation Hydralazine HCl 50 mg 02/10/20 21:00 02/13/20 15:22 Hydralazine 25 Mg Tab PER TUBE 50 mg QID ARLEY Administration Dexmedetomidine HCl 400 mcg/ 100 mls @ 0 mls/hr 02/02/20 14:45 02/04/20 21:46 Sodium Chloride IVPB 100 mls INF ARLEY Administration Protocol Titrate Fentanyl Citrate 2,000 mcg/ 100 mls @ 0 mls/hr 02/04/20 14:30 02/11/20 23:58 Sodium Chloride IV 03/05/20 14:30 100 mls INF ARLEY Administration Protocol Per Protocol Insulin Glargine 38 units/ 0.38 mls @ 0 mls/hr 02/12/20 21:00 02/13/20 08:32 Miscellaneous Medication SC 0.38 mls BID ARLEY Administration Insulin Human Lispro 0 units 01/31/20 22:19 02/01/20 21:36 Humalog 300 Units/3 Ml Vial SC 2 unit .BEDTIME SLIDING SC PRN Administration Bedtime Correctional Scale Insulin Human Lispro 0 units 02/10/20 19:11 02/13/20 09:47 Humalog 300 Units/3 Ml Vial SC 3 unit .AGGRESSIVE SLIDING PRN Administration Aggressive Correctional Scale Levothyroxine Sodium 100 mcg 02/04/20 06:00 02/13/20 08:33 Levothyroxine 100 Mcg Sdv IVP 100 mcg 0600 ARLEY Administration Lorazepam 2 mg 02/04/20 14:30 02/07/20 20:27 Lorazepam 2 Mg/Ml Vial SLOW IVP 03/05/20 14:30 2 mg Q1H PRN Administration Breakthrough agitation Methylprednisolone Sodium Succinate 40 mg 02/02/20 12:00 02/13/20 15:54 Methylprednisolone Sod Succ 40 Mg Vial IVP 40 mg Q6HR ARLEY Administration Polyethylene Glycol 17 gm 02/13/20 09:00 02/13/20 08:33 Polyethylene Glycol 3350 17 Gm Packet PER TUBE 17 gm DAILY ARLEY Administration Propofol 1,000 mg 02/04/20 14:30 02/13/20 13:19 Propofol 1,000 Mg/100 Ml Vial IV 03/05/20 14:30 1,000 mg INF PRN Administration TO ACHIEVE GOAL RASS Protocol Quetiapine Fumarate 25 mg 02/02/20 09:00 02/13/20 08:32 Quetiapine Fumarate 25 Mg Tab PO 25 mg BID ARLEY Administration Rosuvastatin Calcium 10 mg 02/01/20 09:00 02/13/20 08:31 Rosuvastatin 10 Mg Tab PO 10 mg DAILY ARLEY Administration Sterile Water 10 ml 02/06/20 00:18 02/07/20 04:21 Sterile Water 10 Ml Vial FS 10 ml PRN PRN Administration FOR VEC RECONST. - Exam General - other findings: Intubated and mechanically ventilated Heart: RRR Respiratory: CTAB Skin: no rashes Neurological - other findings: Unable to assess Psychiatric - other findings: Unable to assess Hosp A/P - Plan -Assessment (1) Pneumonia due to COVID-19 virus Code(s): U07.1 - COVID-19; J12.89 - OTHER VIRAL PNEUMONIA Status: Acute (2) Respiratory failure with hypoxia Code(s): J96.91 - RESPIRATORY FAILURE, UNSPECIFIED WITH HYPOXIA Status: Acute Qualifiers: Chronicity: acute Qualified Code(s): J96.01 - Acute respiratory failure with hypoxia (3) Sepsis Code(s): A41.9 - SEPSIS, UNSPECIFIED ORGANISM Status: Acute Qualifiers: Sepsis acute organ dysfunction status: with acute organ dysfunction Severe sepsis acute organ dysfunction type: acute respiratory failure Acute respiratory failure type: with hypoxia Severe sepsis shock status: without septic shock (4) DM2 (diabetes mellitus, type 2) Status: Chronic Qualifiers: Diabetes mellitus halfway insulin use: with superintendent terminal use Diabetes mellitus complication status: with hyperglycemia Qualified Code(s): E11.65 - Type 2 diabetes mellitus with hyperglycemia; Z79.4 - computer terminal operator (current) use of insulin (5) Depression Code(s): F32.9 - MAJOR DEPRESSIVE DISORDER, SINGLE EPISODE, UNSPECIFIED Status: Chronic Qualifiers: Depression Type: unspecified Qualified Code(s): F32.9 - Major depressive disorder, single episode, unspecified (6) Morbid Obesity Code(s): E66.9 - OBESITY, UNSPECIFIED Status: Chronic Qualifiers: Obesity classification: adult class 3 (BMI >= 40) Body mass index: BMI 4 0.0-44.9 (7) Hypothyroidism Code(s): E03.9 - HYPOTHYROIDISM, UNSPECIFIED Status: Chronic Qualifiers: Hypothyroidism type: unspecified Qualified Code(s): E03.9 - Hypothyroidism, unspecified (8) Dyslipidemia Code(s): E78.5 - HYPERLIPIDEMIA, UNSPECIFIED Status: Chronic - Plan Blood sugars have improved, continue to monitor blood sugars. If they worsen, will increase insulin dose tomorrow. Administer Kayexalate for hyperkalemia and recheck potassium. Patient is on cefepime and Solu-Medrol. Patient has received a course of remdesivir. Patient is currently on bilevel ventilator. Palliative care following. Hypertension controlled
--- NOTE | 2020-02-13 18:35 | PRG ---
DATE OF SERVICE: 02/13/2020 SUBJECTIVE: Ms. Mata 10 of pressure support and 5 of PEEP. She is no longer being volume ventilated. She is doing well. OBJECTIVE: VITAL SIGNS: Blood pressure 156/60, heart rate 60, oximetry is 100%. LUNGS: Unchanged. HEART: Unchanged. ABDOMEN: Unchanged. LABORATORY DATA: White count 10.8, hemoglobin 12.5, platelets 157. Sodium 142, potassium 5.5, chloride 101, bicarb 33, BUN 34, creatinine 0.6. The pH is 7.5, pCO2 is 51, and pO2 is 81. ASSESSMENT AND PLAN: We will probably switch her to pressure support of 5 and 3 of PEEP in the morning. If she does well, extubate her. Job ID: [id number]
[2020-02-14] MEDS: methylPREDNISolone Sod Succ 40 MG VIAL IVP SCH ×5 (00:49→23:54)
[2020-02-14] MEDS: Propofol 1,000 MG/100 ML VIAL IV PRN (03:59)
[2020-02-14 04:07] LABS: #Lymphocytes 0.7 thou/uL (1.20-3.40); #Monocytes 0.8 thou/uL (0.11-0.59); #Neutrophils 8.7 thou/uL (1.40-6.50); %Basophils 0.2 % (0.0-1.0); %Eosinophils 0.1 % (0.0-10.0); %Lymphocytes 6.6 % (21.0-51.0); %Neutrophils 85.1 % (42.0-75.0); Hemoglobin 12.4 g/dL (12.0-16.0); Mean Corpuscular Hemoglobin 30.7 pg (27.0-31.0); Mean Platelet Volume 9.7 fL (7.4-10.4); Platelet Count 144 thou/uL (130-400); Red Blood Cell (RBC) Count 4.03 mill/uL (4.20-5.40); White Blood Cell (WBC) Count 10.2 thou/uL (4.8-10.8)
[2020-02-14 04:29] LABS: Anion Gap 13 mmol/L (10-20); BUN (Urea Nitrogen) 29 mg/dL (9.8-20.1); Calc. Creatinine Clearance 142 mL/min (70-130); Calcium 8.8 mg/dL (7.8-10.44); Carbon Dioxide 35 mmol/L (23-31); Chloride 98 mmol/L (98-107); Glucose 196 mg/dL (83-110); Potassium 4.9 mmol/L (3.5-5.1); Sodium 141 mmol/L (136-145)
[2020-02-14] MEDS: HumaLOG 300 UNITS/3 ML VIAL SC PRN (06:05)
[2020-02-14] MEDS: Citalopram 20 MG TAB PO SCH (07:42)
[2020-02-14] MEDS: Atenolol 50 MG TAB PO SCH (07:42)
[2020-02-14] MEDS: Famotidine 20 MG TAB PO SCH ×2 (07:42→21:17)
[2020-02-14] MEDS: Ascorbic Acid 500 mg Chewable Tablet PO SCH (07:42)
[2020-02-14] MEDS: hydrALAZINE 25 MG TAB PER TUBE SCH ×4 (07:43→21:16)
[2020-02-14] MEDS: Alogliptin 6.25 MG TAB PO SCH (07:43)
[2020-02-14] MEDS: Enoxaparin Sodium 40 MG/0.4 ML SYRINGE SC SCH ×2 (07:43→21:17)
[2020-02-14] MEDS: Polyethylene Glycol 3350 17 GM Packet PER TUBE SCH (07:43)
[2020-02-14] MEDS: Rosuvastatin 10 MG TAB PO SCH (07:43)
[2020-02-14] MEDS: Insulin Glargine 38 UNITS in Pre-Filled Syringe 1 EACH SC SCH ×2 (08:23→21:17)
[2020-02-14 08:33] LABS: Actual Bicarbonate (HCO3a) 34.6 mEq/L (22-28); CO2 Tension 46.6 mmHg (35.0-45.0); Calcium, Ionized (arterial) 1.23 mmol/L (1.12-1.30); Carboxyhemoglobin (COHb) 0.7 gm% (0.0-3.0); Hemoglobin (Hb) 12.9 g/dL (12.0-16.0); O2 Tension (PaO2), arterial 90.1 mmHg (> 70.0); Potassium - ABG Lab 4.45 mmol/L (3.70-5.30); pH, Arterial 7.49 (7.35-7.45)
[2020-02-14 08:35] LABS: Puncture Site LRA
--- NOTE | 2020-02-14 16:14 | PRG ---
DATE OF SERVICE: 02/14/2020 SUBJECTIVE: Ms. Mata was not waking up and following commands. She is on minimal ventilatory support and I was hoping to get her extubated. She has minimal leak, but she has been on high-dose steroids, so it is more likely this is related to her obesity. Her minute volume has been less than 10 L a minute. Until she is more alert and following commands, I do not feel comfortable extubating her. OBJECTIVE: LUNGS: Unchanged. ABDOMEN: Unchanged. LABORATORY DATA: White count 10.2, hemoglobin 12.4, platelets 144. Electrolytes are unremarkable. IMPRESSION: 1. Respiratory failure associated with COVID pneumonia. 2. Encephalopathy, perhaps delayed clearance of sedatives. We will hold these for now. We will give her the Seroquel and Celexa for now. Propofol will be removed from her drug list. Precedex p.r.n., if we can get her following commands, would be reasonable. I do think she probably needs to be on a little more Lovenox because of hypercoagulable state. We will check a chest x-ray in the morning. Critical care time 35 min. Job ID: [id number] MTDD
--- NOTE | 2020-02-14 18:25 | PDOC.HOSPP ---
- Subjective Encounter Date: 02/14/20 Encounter Time: 18:23 Subjective: Patient seen for follow-up regarding COVID-19 pneumonia. She is intubated, review of systems was not completed. - Objective Vital Signs & Weight: Vital Signs (12 hours) Temp Pulse Resp BP Pulse Ox 02/14/20 16:50 97.7 F 02/14/20 16:00 97.7 F 02/14/20 15:21 55 L 02/14/20 14:20 55 L 02/14/20 12:53 99.3 F 02/14/20 11:10 54 L 02/14/20 11:03 54 L 02/14/20 10:00 12 02/14/20 08:39 59 L 02/14/20 07:43 63 164/66 H 02/14/20 07:42 63 164/66 H 02/14/20 06:58 12 98 Weight Admit Weight 235 lb Weight 245 lb 5.992 oz Most Recent Monitor Data Heart Rate from ECG 51 NIBP 112/46 NIBP BP-Mean 68 Respiration from ECG 13 SpO2 100 I&O: 02/13/20 02/14/20 02/15/20 06:59 06:59 06:59 Intake Total 1398.7 2376.7 425 Output Total 1800 1790 740 Balance -401.3 586.7 -315 Result Diagrams: 02/14/20 03:40 02/14/20 03:40 Additional Labs: Accuchecks 02/14/20 02/13/20 07:54 19:44 POC Glucose 140 H 161 H Labs and MAR reviewed by me EKG Reviewed by me: Yes (Normal sinus rhythm on telemetry) Hospitalist ROS - Review of Systems ROS unobtainable: due to endotracheal tube - Medication Medications: Active Medications Generic Name Dose Route Start Last Admin Trade Name Freq PRN Reason Stop Dose Admin Alogliptin Benzoate 12.5 mg 02/02/20 09:00 02/14/20 07:43 Alogliptin 6.25 Mg Tab PO 12.5 mg DAILY ARLEY Administration Ascorbic Acid 1,000 mg 02/01/20 09:00 02/14/20 07:42 Ascorbic Acid 500 Mg Chewable Tablet PO 1,000 mg DAILY ARLEY Administration Atenolol 50 mg 02/01/20 09:00 02/14/20 07:42 Atenolol 50 Mg Tab PO 50 mg DAILY ARLEY Administration Enalaprilat 1.25 mg 02/08/20 10:52 02/09/20 03:24 Enalaprilat Dihydrate 1.25 Mg/Ml Vial SLOW IVP 1.25 mg Q6H PRN Administration SBP Greater Than 170 Famotidine 20 mg 02/01/20 09:00 02/14/20 07:42 Famotidine 20 Mg Tab PO 20 mg BID ARLEY Administration Guaifenesin/Dextromethorphan 15 ml 01/31/20 21:30 02/02/20 02:04 Guaifenesin Dm 100-10/5 Ml Udcup PO 15 ml Q4H PRN Administration Cough Haloperidol Lactate 5 mg 02/02/20 08:47 02/04/20 11:01 Haloperidol Lactate 5 Mg/Ml Vial SLOW IVP 5 mg Q4H PRN Administration Agitation Hydralazine HCl 50 mg 02/10/20 21:00 02/14/20 15:21 Hydralazine 25 Mg Tab PER TUBE Not Given QID ARLEY Insulin Glargine 38 units/ 0.38 mls @ 0 mls/hr 02/12/20 21:00 02/14/20 08:23 Miscellaneous Medication SC 0.38 mls BID ARLEY Administration Dexmedetomidine HCl 400 mcg/ 100 mls @ 0 mls/hr 02/14/20 09:15 02/14/20 15:42 Sodium Chloride IVPB 100 mls INF ARLEY Administration Protocol Titrate Insulin Human Lispro 0 units 01/31/20 22:19 02/01/20 21:36 Humalog 300 Units/3 Ml Vial SC 2 unit .BEDTIME SLIDING SC PRN Administration Bedtime Correctional Scale Insulin Human Lispro 0 units 02/10/20 19:11 02/14/20 06:05 Humalog 300 Units/3 Ml Vial SC 3 unit .AGGRESSIVE SLIDING PRN Administration Aggressive Correctional Scale Levothyroxine Sodium 100 mcg 02/04/20 06:00 02/13/20 08:33 Levothyroxine 100 Mcg Sdv IVP 100 mcg 0600 ARLEY Administration Methylprednisolone Sodium Succinate 40 mg 02/02/20 12:00 02/14/20 16:49 Methylprednisolone Sod Succ 40 Mg Vial IVP 40 mg Q6HR ARLEY Administration Polyethylene Glycol 17 gm 02/13/20 09:00 02/14/20 07:43 Polyethylene Glycol 3350 17 Gm Packet PER TUBE 17 gm DAILY ARLEY Administration Rosuvastatin Calcium 10 mg 02/01/20 09:00 02/14/20 07:43 Rosuvastatin 10 Mg Tab PO 10 mg DAILY ARLEY Administration Sterile Water 10 ml 02/06/20 00:18 02/07/20 04:21 Sterile Water 10 Ml Vial FS 10 ml PRN PRN Administration FOR VEC RECONST. - Exam General Appearance: ill appearing General - other findings: Debated Neck: no thyromegaly Heart: RRR Respiratory: CTAB Skin: no rashes Psychiatric - other findings: Unable to assess Hosp A/P - Plan -Assessment (1) Pneumonia due to COVID-19 virus Code(s): U07.1 - COVID-19; J12.89 - OTHER VIRAL PNEUMONIA Status: Acute (2) Respiratory failure with hypoxia Code(s): J96.91 - RESPIRATORY FAILURE, UNSPECIFIED WITH HYPOXIA Status: Acute Qualifiers: Chronicity: acute Qualified Code(s): J96.01 - Acute respiratory failure with hypoxia (3) Sepsis Code(s): A41.9 - SEPSIS, UNSPECIFIED ORGANISM Status: Acute Qualifiers: Sepsis acute organ dysfunction status: with acute organ dysfunction Severe sepsis acute organ dysfunction type: acute respiratory failure Acute respiratory failure type: with hypoxia Severe sepsis shock status: without septic shock (4) DM2 (diabetes mellitus, type 2) Status: Chronic Qualifiers: Diabetes mellitus watermelon harvesting supervisor insulin use: with chcf use Diabetes mellitus complication status: with hyperglycemia Qualified Code(s): E11.65 - Type 2 diabetes mellitus with hyperglycemia; Z79.4 - termite treater (current) use of insulin (5) Depression Code(s): F32.9 - MAJOR DEPRESSIVE DISORDER, SINGLE EPISODE, UNSPECIFIED Status: Chronic Qualifiers: Depression Type: unspecified Qualified Code(s): F32.9 - Major depressive disorder, single episode, unspecified (6) Morbid Obesity Code(s): E66.9 - OBESITY, UNSPECIFIED Status: Chronic Qualifiers: Obesity classification: adult class 3 (BMI >= 40) Body mass index: BMI 40.0-44.9 (7) Hypothyroidism Code(s): E03.9 - HYPOTHYROIDISM, UNSPECIFIED Status: Chronic Qualifiers: Hypothyroidism type: unspecified Qualified Code(s): E03.9 - Hypothyroidism, unspecified (8) Dyslipidemia Code(s): E78.5 - HYPERLIPIDEMIA, UNSPECIFIED Status: Chronic - Plan Blood sugars have improved. Hyperkalemia resolved. Continue cefepime and Solu-Medrol. Patient has received a course of remdesivir. Patient is currently on bilevel ventilator. Palliative care following. Hypertension controlled
[2020-02-15] MEDS: Levothyroxine 100 MCG SDV IVP SCH (05:13)
[2020-02-15] MEDS: methylPREDNISolone Sod Succ 40 MG VIAL IVP SCH ×4 (05:13→23:56)
[2020-02-15 06:18] LABS: Anion Gap 12 mmol/L (10-20); BUN (Urea Nitrogen) 33 mg/dL (9.8-20.1); Calc. Creatinine Clearance 150 mL/min (70-130); Calcium 8.3 mg/dL (7.8-10.44); Carbon Dioxide 35 mmol/L (23-31); Chloride 99 mmol/L (98-107); Glucose 134 mg/dL (83-110); Potassium 4.5 mmol/L (3.5-5.1); Sodium 141 mmol/L (136-145)
[2020-02-15 06:20] LABS: #Lymphocytes 0.4 thou/uL (1.20-3.40); #Monocytes 0.3 thou/uL (0.11-0.59); #Neutrophils 5.9 thou/uL (1.40-6.50); %Basophils 0.1 % (0.0-1.0); %Eosinophils 0.4 % (0.0-10.0); %Lymphocytes 5.6 % (21.0-51.0); %Monocytes 4.5 % (0.0-10.0); %Neutrophils 89.5 % (42.0-75.0); Hemoglobin 11.3 g/dL (12.0-16.0); Mean Corpuscular HGB CONC 31.9 g/dL (32.0-36.0); Mean Corpuscular Hemoglobin 30.9 pg (27.0-31.0); Mean Corpuscular Volume 96.9 fL (78.0-98.0); Mean Platelet Volume 10.4 fL (7.4-10.4); Platelet Count 91 thou/uL (130-400); Platelet Morphology Comment Appears Decreased; RBC Distribution Width 14.7 % (11.5-14.5); Red Blood Cell (RBC) Count 3.65 mill/uL (4.20-5.40); White Blood Cell (WBC) Count 6.6 thou/uL (4.8-10.8)
[2020-02-15 07:34] LABS: Actual Bicarbonate (HCO3a) 33.9 mEq/L (22-28); Base Excess (BEa) 11.5 mEq/L (-2.0 to +3.0); Calcium, Ionized (arterial) 1.16 mmol/L (1.12-1.30); Carboxyhemoglobin (COHb) 0.3 gm% (0.0-3.0); Hemoglobin (Hb) 7.4 g/dL (12.0-16.0); O2 Tension (PaO2), arterial 105.1 mmHg (> 70.0); Potassium - ABG Lab 4.45 mmol/L (3.70-5.30)
--- NOTE | 2020-02-15 08:42 | RAD ---
PORTABLE SEMIUPRIGHT PORTABLE CHEST RADIOGRAPH: DATE: 02/15/2020. COMPARISON: 02/10/2020. HISTORY: COVID PNEUMONIA. FINDINGS: Stable endotracheal tube and nasogastric tube. Body habitus and portable technique limit detailed as sessment, particularly of the upper lobe regions. There is persistent nonspecific parenchymal opacit y in the left lung base with partial obscuration of the left hemidiaphragm suggesting nonspecific foc al interstitial and alveolar opacity. There is improved aeration within the right base, the perihila r regions, and the right upper lobe when compared to the prior exam. No large volume pleural effusio n. No pneumothorax. IMPRESSION: Improving aeration with residual nonspecific parenchymal opacity in the left base. Stable lines and tubes as above. POS: [facility]
[2020-02-15] MEDS: Ascorbic Acid 500 mg Chewable Tablet PO SCH (08:46)
[2020-02-15] MEDS: Famotidine 20 MG TAB PO SCH ×2 (08:46→19:59)
[2020-02-15] MEDS: hydrALAZINE 25 MG TAB PER TUBE SCH ×4 (08:46→20:00)
[2020-02-15] MEDS: Enoxaparin Sodium 40 MG/0.4 ML SYRINGE SC SCH ×2 (08:46→20:00)
[2020-02-15] MEDS: Rosuvastatin 10 MG TAB PO SCH (08:47)
[2020-02-15] MEDS: Alogliptin 6.25 MG TAB PO SCH (08:47)
[2020-02-15] MEDS: Polyethylene Glycol 3350 17 GM Packet PER TUBE SCH (08:47)
[2020-02-15] MEDS: Atenolol 50 MG TAB PO SCH (08:47)
[2020-02-15] MEDS: Insulin Glargine 38 UNITS in Pre-Filled Syringe 1 EACH SC SCH ×2 (08:48→20:00)
[2020-02-15 09:16] LABS: Puncture Site LRA
[2020-02-15] MEDS: Enalaprilat Dihydrate 1.25 MG/ML VIAL SLOW IVP PRN (11:30)
[2020-02-15] MEDS ORDERED: Lorazepam 2 MG/ML VIAL ONE (12:38)
[2020-02-15] MEDS ORDERED: Lorazepam 2 MG/ML VIAL SLOW IVP SCH (12:45)
--- NOTE | 2020-02-15 18:03 | PDOC.HOSPP ---
- Subjective Encounter Date: 02/15/20 Encounter Time: 12:00 Subjective: Seen for follow-up regarding Covid pneumonia. Could not complete review of systems secondary to intubated status. - Objective Vital Signs & Weight: Vital Signs (12 hours) Temp Pulse Resp BP Pulse Ox 02/15/20 17:58 60 123/47 L 02/15/20 16:00 98.9 F 10 L 02/15/20 15:22 60 150/56 H 02/15/20 14:00 10 L 02/15/20 12:39 193/75 H 02/15/20 12:00 99.2 F 12 02/15/20 11:30 186/156 H 02/15/20 11:06 74 177/62 H 02/15/20 10:00 14 02/15/20 08:47 71 151/60 H 02/15/20 08:46 71 151/60 H 02/15/20 08:00 99.3 F 59 L 15 156/55 H 95 Weight Admit Weight 235 lb Weight 245 lb 5.992 oz Most Recent Monitor Data Heart Rate from ECG 59 NIBP 159/58 NIBP BP-Mean 91 Respiration from ECG 15 SpO2 98 I&O: 02/14/20 02/15/20 02/16/20 06:59 06:59 06:59 Intake Total 2376.7 1152.8 220 Output Total 1790 1240 650 Balance 586.7 -87.2 -430 Result Diagrams: 02/15/20 05:48 02/15/20 05:48 Additional Labs: Accuchecks 02/15/20 02/15/20 02/14/20 11:32 05:18 21:22 POC Glucose 149 H 137 H 118 H 02/14/20 15:25 POC Glucose 84 I reviewed patient's labs and MAR EKG Reviewed by me: Yes (Telemetry shows normal sinus rhythm) Hospitalist ROS - Review of Systems ROS unobtainable: due to endotracheal tube - Medication Medications: Active Medications Generic Name Dose Route Start Last Admin Trade Name Freq PRN Reason Stop Dose Admin Alogliptin Benzoate 12.5 mg 02/02/20 09:00 02/15/20 08:47 Alogliptin 6.25 Mg Tab PO 12.5 mg DAILY ARLEY Administration Ascorbic Acid 1,000 mg 02/01/20 09:00 02/15/20 08:46 Ascorbic Acid 500 Mg Chewable Tablet PO 1,000 mg DAILY ARLEY Administration Atenolol 50 mg 02/01/20 09:00 02/15/20 08:47 Atenolol 50 Mg Tab PO 50 mg DAILY ARLEY Administration Enalaprilat 1.25 mg 02/08/20 10:52 02/15/20 11:30 Enalaprilat Dihydrate 1.25 Mg/Ml Vial SLOW IVP 1.25 mg Q6H PRN Administration SBP Greater Than 170 Enoxaparin Sodium 40 mg 02/14/20 21:00 02/15/20 08:46 Enoxaparin Sodium 40 Mg/0.4 Ml Syringe SC 40 mg 09,2100 ARLEY Administration Famotidine 20 mg 02/01/20 09:00 02/15/20 08:46 Famotidine 20 Mg Tab PO 20 mg BID ARLEY Administration Guaifenesin/Dextromethorphan 15 ml 01/31/20 21:30 02/02/20 02:04 Guaifenesin Dm 100-10/5 Ml Udcup PO 15 ml Q4H PRN Administration Cough Haloperidol Lactate 5 mg 02/02/20 08:47 02/04/20 11:01 Haloperidol Lactate 5 Mg/Ml Vial SLOW IVP 5 mg Q4H PRN Administration Agitation Hydralazine HCl 50 mg 02/10/20 21:00 02/15/20 17:58 Hydralazine 25 Mg Tab PER TUBE 50 mg QID ARLEY Administration Insulin Glargine 38 units/ 0.38 mls @ 0 mls/hr 02/12/20 21:00 02/15/20 08:48 Miscellaneous Medication SC 0.38 mls BID ARLEY Administration Dexmedetomidine HCl 400 mcg/ 100 mls @ 0 mls/hr 02/14/20 09:15 02/14/20 15:42 Sodium Chloride IVPB 100 mls INF ARLEY Administration Protocol Titrate Insulin Human Lispro 0 units 01/31/20 22:19 02/01/20 21:36 Humalog 300 Units/3 Ml Vial SC 2 unit .BEDTIME SLIDING SC PRN Administration Bedtime Correctional Scale Insulin Human Lispro 0 units 02/10/20 19:11 02/14/20 06:05 Humalog 300 Units/3 Ml Vial SC 3 unit .AGGRESSIVE SLIDING PRN Administration Aggressive Correctional Scale Levothyroxine Sodium 100 mcg 02/04/20 06:00 02/15/20 05:13 Levothyroxine 100 Mcg Sdv IVP 100 mcg 0600 ARLEY Administration Methylprednisolone Sodium Succinate 40 mg 02/02/20 12:00 02/15/20 17:58 Methylprednisolone Sod Succ 40 Mg Vial IVP 40 mg Q6HR ARLEY Administration Polyethylene Glycol 17 gm 02/13/20 09:00 02/15/20 08:47 Polyethylene Glycol 3350 17 Gm Packet PER TUBE 17 gm DAILY ARLEY Administration Rosuvastatin Calcium 10 mg 02/01/20 09:00 02/15/20 08:47 Rosuvastatin 10 Mg Tab PO 10 mg DAILY ARLEY Administration Sterile Water 10 ml 02/06/20 00:18 02/07/20 04:21 Sterile Water 10 Ml Vial FS 10 ml PRN PRN Administration FOR VEC RECONST. - Exam General - other findings: Intubated ENT - other findings: ETT Heart: RRR Respiratory: CTAB Skin: no rashes Psychiatric - other findings: Unable to assess Hosp A/P - Plan -Assessment (1) Pneumonia due to COVID-19 virus Code(s): U07.1 - COVID-19; J12.89 - OTHER VIRAL PNEUMONIA Status: Acute (2) Respiratory failure with hypoxia Code(s): J96.91 - RESPIRATORY FAILURE, UNSPECIFIED WITH HYPOXIA Status: Acute Qualifiers: Chronicity: acute Qualified Code(s): J96.01 - Acute respiratory failure with hypoxia (3) Sepsis Code(s): A41.9 - SEPSIS, UNSPECIFIED ORGANISM Status: Acute Qualifiers: Sepsis acute organ dysfunction status: with acute organ dysfunction Severe sepsis acute organ dysfunction type: acute respiratory failure Acute respiratory failure type: with hypoxia Severe sepsis shock status: without septic shock (4) DM2 (diabetes mellitus, type 2) Status: Chronic Qualifiers: Diabetes mellitus ad terminal makeup operator insulin use: with ad terminal makeup operator use Diabetes mellitus complication status: with hyperglycemia Qualified Code(s): E11.65 - Type 2 diabetes mellitus with hyperglycemia; Z79.4 - snf (current) use of insulin (5) Depression Code(s): F32.9 - MAJOR DEPRESSIVE DISORDER, SINGLE EPISODE, UNSPECIFIED Status: Chronic Qualifiers: Depression Type: unspecified Qualified Code(s): F32.9 - Major depressive disorder, single episode, unspecified (6) Morbid Obesity Code(s): E66.9 - OBESITY, UNSPECIFIED Status: Chronic Qualifiers: Obesity classification: adult class 3 (BMI >= 40) Body mass index: BMI 4 0.0-44.9 (7) Hypothyroidism Code(s): E03.9 - HYPOTHYROIDISM, UNSPECIFIED Status: Chronic Qualifiers: Hypothyroidism type: unspecified Qualified Code(s): E03.9 - Hypothyroidism, unspecified (8) Dyslipidemia Code(s): E78.5 - HYPERLIPIDEMIA, UNSPECIFIED Status: Chronic - Plan Blood sugars have improved. Continue cefepime and Solu-Medrol. Patient has pleated remdesivir. Patient is currently on bilevel ventilator. Palliative care following. Hypertension controlled
[2020-02-15] MEDS: HumaLOG 300 UNITS/3 ML VIAL SC PRN (18:16)
--- NOTE | 2020-02-15 20:58 | PRG ---
DATE OF SERVICE: 02/15/2020 Eber Mata remains mechanically ventilated. Her best negative inspiratory force is -18 today I do not really see anywhere around the tracheostomy given her weakness. She is 154/52, heart rate is 59. She is a little over 2 weeks into this. She was sick for 3 weeks prior to coming to the hospital, so it is likely that she is out of an infectious stage. I will talk to General Surgery and we will consider doing tracheostomy hopefully first part of next week. If she has some amazing improvement in strength with holding her sedation over the weekend, then maybe we can get away without a tracheostomy, but I suspect she will benefit from one. Critical care time 30 min. Job ID: [id number] MTDD
[2020-02-16 04:26] LABS: #Lymphocytes 0.4 thou/uL (1.20-3.40); #Monocytes 0.3 thou/uL (0.11-0.59); #Neutrophils 4.5 thou/uL (1.40-6.50); %Eosinophils 0.2 % (0.0-10.0); %Lymphocytes 7.5 % (21.0-51.0); %Monocytes 5.1 % (0.0-10.0); %Neutrophils 87.3 % (42.0-75.0); Hemoglobin 10.8 g/dL (12.0-16.0); Mean Corpuscular HGB CONC 32.7 g/dL (32.0-36.0); Mean Corpuscular Hemoglobin 31.1 pg (27.0-31.0); Mean Corpuscular Volume 95.3 fL (78.0-98.0); Mean Platelet Volume 10.9 fL (7.4-10.4); Platelet Count 93 thou/uL (130-400); RBC Distribution Width 14.7 % (11.5-14.5); Red Blood Cell (RBC) Count 3.47 mill/uL (4.20-5.40); White Blood Cell (WBC) Count 5.1 thou/uL (4.8-10.8)
[2020-02-16 04:43] LABS: Anion Gap 12 mmol/L (10-20); BUN (Urea Nitrogen) 34 mg/dL (9.8-20.1); Calc. Creatinine Clearance 150 mL/min (70-130); Calcium 8.5 mg/dL (7.8-10.44); Carbon Dioxide 33 mmol/L (23-31); Chloride 100 mmol/L (98-107); Glucose 119 mg/dL (83-110); Potassium 4.9 mmol/L (3.5-5.1); Sodium 140 mmol/L (136-145)
[2020-02-16] MEDS: methylPREDNISolone Sod Succ 40 MG VIAL IVP SCH ×3 (05:29→18:35)
[2020-02-16] MEDS: Levothyroxine 100 MCG SDV IVP SCH (05:29)
[2020-02-16 07:26] LABS: Actual Bicarbonate (HCO3a) 32.5 mEq/L (22-28); Base Excess (BEa) 8.3 mEq/L (-2.0 to +3.0); CO2 Tension 43.2 mmHg (35.0-45.0); Calcium, Ionized (arterial) 1.22 mmol/L (1.12-1.30); Carboxyhemoglobin (COHb) 0.7 gm% (0.0-3.0); Hemoglobin (Hb) 11.8 g/dL (12.0-16.0); Potassium - ABG Lab 4.29 mmol/L (3.70-5.30); pH, Arterial 7.49 (7.35-7.45)
[2020-02-16 07:32] LABS: Puncture Site LRA
[2020-02-16] MEDS: Ascorbic Acid 500 mg Chewable Tablet PO SCH (08:47)
[2020-02-16] MEDS: Polyethylene Glycol 3350 17 GM Packet PER TUBE SCH (08:48)
[2020-02-16] MEDS: Rosuvastatin 10 MG TAB PO SCH (08:48)
[2020-02-16] MEDS: Famotidine 20 MG TAB PO SCH ×2 (08:48→20:19)
[2020-02-16] MEDS: Atenolol 50 MG TAB PO SCH (08:49)
[2020-02-16] MEDS: hydrALAZINE 25 MG TAB PER TUBE SCH ×4 (08:49→20:26)
[2020-02-16] MEDS: Alogliptin 6.25 MG TAB PO SCH (08:49)
[2020-02-16] MEDS ORDERED: Insulin Glargine 20 UNITS in Pre-Filled Syringe 1 EACH SC SCH (10:00)
[2020-02-16] MEDS: Enoxaparin Sodium 40 MG/0.4 ML SYRINGE SC SCH ×2 (10:50→20:19)
--- NOTE | 2020-02-16 11:47 | PRG ---
DATE OF SERVICE: 02/16/2020 SUBJECTIVE: Eber Maat is clinically unchanged. She is in the hospital now 16 days. Her tells me she had symptoms for 3 weeks prior to admission, so it is highly likely that she is out of the COVID infectious stage. She will probably be taken out of isolation this weekend. OBJECTIVE: VITAL SIGNS: Heart rate is in the 60s, FiO2 is at 40, blood pressure 142/53. Intake and outputs positive 548. LUNGS: Clear. HEART: Regular rhythm. ABDOMEN: Soft. EXTREMITIES: Without edema. Chest radiographs unchanged. The biggest issue facing her is profound muscle weakness. Her best negative inspiratory force yesterday was negative 18 cm. She will need a tracheostomy. Dr. Powers has been consulted. This can be done at his convenience. Job ID: [id number]
[2020-02-16] MEDS: Insulin Glargine 38 UNITS in Pre-Filled Syringe 1 EACH SC SCH (13:17)
--- NOTE | 2020-02-16 16:37 | PDOC.HOSPP ---
- Subjective Encounter Date: 02/16/20 Encounter Time: 10:00 Subjective: Patient seen for follow-up regarding Covid 19 pneumonia. She is intubated, could not complete review of systems. - Objective Vital Signs & Weight: Vital Signs (12 hours) Temp Pulse Resp BP Pulse Ox 02/16/20 14:13 59 L 02/16/20 12:08 62 122/50 L 02/16/20 12:00 98.2 F 15 02/16/20 10:24 67 02/16/20 10:00 22 H 02/16/20 08:49 67 134/64 02/16/20 08:00 98.6 F 15 100 02/16/20 07:07 59 L 02/16/20 06:00 17 Weight Admit Weight 235 lb Weight 245 lb 5.992 oz Most Recent Monitor Data Heart Rate from ECG 65 NIBP 135/51 NIBP BP-Mean 79 Respiration from ECG 17 SpO2 99 I&O: 02/15/20 02/16/20 02/17/20 06:59 06:59 06:59 Intake Total 1152.8 1843.8 240 Output Total 1240 1295 360 Balance -87.2 548.8 -120 Result Diagrams: 02/16/20 03:45 02/16/20 03:45 Additional Labs: Accuchecks 02/16/20 02/16/20 02/16/20 16:22 09:02 03:51 POC Glucose 121 H 142 H 119 H 02/16/20 02/15/20 00:06 18:02 POC Glucose 122 H 175 H I reviewed patient's labs and MAR EKG Reviewed by me: Yes (Normal sinus rhythm on telemetry) Hospitalist ROS - Review of Systems ROS unobtainable: due to endotracheal tube - Medication Medications: Active Medications Generic Name Dose Route Start Last Admin Trade Name Freq PRN Reason Stop Dose Admin Alogliptin Benzoate 12.5 mg 02/02/20 09:00 02/16/20 08:49 Alogliptin 6.25 Mg Tab PO 12.5 mg DAILY ARLEY Administration Ascorbic Acid 1,000 mg 02/01/20 09:00 02/16/20 08:47 Ascorbic Acid 500 Mg Chewable Tablet PO 1,000 mg DAILY ARLEY Administration Atenolol 50 mg 02/01/20 09:00 02/16/20 08:49 Atenolol 50 Mg Tab PO 50 mg DAILY ARLEY Administration Enalaprilat 1.25 mg 02/08/20 10:52 02/15/20 11:30 Enalaprilat Dihydrate 1.25 Mg/Ml Vial SLOW IVP 1.25 mg Q6H PRN Administration SBP Greater Than 170 Enoxaparin Sodium 40 mg 02/14/20 21:00 02/16/20 10:50 Enoxaparin Sodium 40 Mg/0.4 Ml Syringe SC 40 mg 0900,2100 ARLEY Administration Famotidine 20 mg 02/01/20 09:00 02/16/20 08:48 Famotidine 20 Mg Tab PO 20 mg BID ARLEY Administration Guaifenesin/Dextromethorphan 15 ml 01/31/20 21:30 02/02/20 02:04 Guaifenesin Dm 100-10/5 Ml Udcup PO 15 ml Q4H PRN Administration Cough Haloperidol Lactate 5 mg 02/02/20 08:47 02/04/20 11:01 Haloperidol Lactate 5 Mg/Ml Vial SLOW IVP 5 mg Q4H PRN Administration Agitation Hydralazine HCl 50 mg 02/10/20 21:00 02/16/20 12:08 Hydralazine 25 Mg Tab PER TUBE 50 mg QID ARLEY Administration Dexmedetomidine HCl 400 mcg/ 100 mls @ 0 mls/hr 02/14/20 09:15 02/16/20 13:50 Sodium Chloride IVPB 100 mls INF ARLEY Administration Protocol Titrate Insulin Human Lispro 0 units 01/31/20 22:19 02/01/20 21:36 Humalog 300 Units/3 Ml Vial SC 2 unit .BEDTIME SLIDING SC PRN Administration Bedtime Correctional Scale Insulin Human Lispro 0 units 02/10/20 19:11 02/15/20 18:16 Humalog 300 Units/3 Ml Vial SC 3 unit .AGGRESSIVE SLIDING PRN Administration Aggressive Correctional Scale Levothyroxine Sodium 100 mcg 02/04/20 06:00 02/16/20 05:29 Levothyroxine 100 Mcg Sdv IVP 100 mcg 0600 ARLEY Administration Methylprednisolone Sodium Succinate 40 mg 02/02/20 12:00 02/16/20 12:08 Methylprednisolone Sod Succ 40 Mg Vial IVP 40 mg Q6HR ARLEY Administration Polyethylene Glycol 17 gm 02/13/20 09:00 02/16/20 08:48 Polyethylene Glycol 3350 17 Gm Packet PER TUBE 17 gm DAILY ARLEY Administration Rosuvastatin Calcium 10 mg 02/01/20 09:00 02/16/20 08:48 Rosuvastatin 10 Mg Tab PO 10 mg DAILY ARLEY Administration Sterile Water 10 ml 02/06/20 00:18 02/07/20 04:21 Sterile Water 10 Ml Vial FS 10 ml PRN PRN Administration FOR VEC RECONST. - Exam General - other findings: Intubated Heart: RRR Respiratory: CTAB Skin: no rashes Psychiatric - other findings: Unable to assess Hosp A/P - Plan Patient was admitted to the hospital on January 31, 2020 for Covid pneumonia. She has a history of SVT/atrial tachycardia. She was seen by infectious disease service and on the night of January 31 she was transferred to the ICU on BiPAP. She was intubated on February 01. She was treated with steroids. She also received remdesivir. She continues to be on ventilator on SIMV mode. She has profound muscle weakness and will need tracheostomy, per pulmonology service. Patient's isolation precautions will probably be discontinued over the weekend of February 16 since she had symptoms for 3 weeks prior to admission. -Assessment (1) Pneumonia due to COVID-19 virus Code(s): U07.1 - COVID-19; J12.89 - OTHER VIRAL PNEUMONIA Status: Acute (2) Respiratory failure with hypoxia Code(s): J96.91 - RESPIRATORY FAILURE, UNSPECIFIED WITH HYPOXIA Status: Acute Qualifiers: Chronicity: acute Qualified Code(s): J96.01 - Acute respiratory failure with hypoxia (3) Sepsis Code(s): A41.9 - SEPSIS, UNSPECIFIED ORGANISM Status: Acute Qualifiers: Sepsis acute organ dysfunction status: with acute organ dysfunction Severe sepsis acute organ dysfunction type: acute respiratory failure Acute respiratory failure type: with hypoxia Severe sepsis shock status: without septic shock (4) DM2 (diabetes mellitus, type 2) Status: Chronic Qualifiers: Diabetes mellitus chcf insulin use: with chcf use Diabetes mellitus complication status: with hyperglycemia Qualified Code(s): E11.65 - Type 2 diabetes mellitus with hyperglycemia; Z79.4 - retirement (current) use of insulin (5) Depression Code(s): F32.9 - MAJOR DEPRESSIVE DISORDER, SINGLE EPISODE, UNSPECIFIED Status: Chronic Qualifiers: Depression Type: unspecified Qualified Code(s): F32.9 - Major depressive disorder, single episode, unspecified (6) Morbid Obesity Code(s): E66.9 - OBESITY, UNSPECIFIED Status: Chronic Qualifiers: Obesity classification: adult class 3 (BMI >= 40) Body mass index: BMI 40.0-44.9 (7) Hypothyroidism Code(s): E03.9 - HYPOTHYROIDISM, UNSPECIFIED Status: Chronic Qualifiers: Hypothyroidism type: unspecified Qualified Code(s): E03.9 - Hypothyroidism, unspecified (8) Dyslipidemia Code(s): E78.5 - HYPERLIPIDEMIA, UNSPECIFIED Status: Chronic - Plan Blood sugars have improved. Continue Accu-Cheks, Lantus insulin and insulin sliding scale. Patient is on cefepime and Solu-Medrol. Patient has pleated remdesivir. Continue mechanical ventilation. Palliative care following. Hypertension controlled
[2020-02-16] MEDS ORDERED: Nystatin Powder 15 GM BOT TOP PRN (19:36)
[2020-02-16] MEDS: Haloperidol Lactate 5 MG/ML VIAL SLOW IVP PRN (22:00)
[2020-02-17] MEDS: methylPREDNISolone Sod Succ 40 MG VIAL IVP SCH ×4 (00:09→22:53)
[2020-02-17 03:15] LABS: SARS-CoV-2 MS2 Positive; SARS-CoV-2 N Gene Positive; SARS-CoV-2 S Gene Positive; SARS-CoV-2 by NAA DETECTED (NotDetected); SARS-CoV-2 orf1ab Positive
[2020-02-17 05:02] LABS: #Lymphocytes 0.3 thou/uL (1.20-3.40); #Monocytes 0.2 thou/uL (0.11-0.59); #Neutrophils 3.8 thou/uL (1.40-6.50); %Eosinophils 0.2 % (0.0-10.0); %Lymphocytes 7.7 % (21.0-51.0); %Monocytes 4.4 % (0.0-10.0); %Neutrophils 87.7 % (42.0-75.0); Hemoglobin 10.1 g/dL (12.0-16.0); Mean Corpuscular HGB CONC 31.9 g/dL (32.0-36.0); Mean Corpuscular Hemoglobin 30.9 pg (27.0-31.0); Mean Corpuscular Volume 96.8 fL (78.0-98.0); Mean Platelet Volume 11.4 fL (7.4-10.4); Platelet Count 70 thou/uL (130-400); RBC Distribution Width 14.7 % (11.5-14.5); Red Blood Cell (RBC) Count 3.26 mill/uL (4.20-5.40); White Blood Cell (WBC) Count 4.3 thou/uL (4.8-10.8)
[2020-02-17] MEDS: Levothyroxine 100 MCG SDV IVP SCH (05:09)
[2020-02-17] MEDS: HumaLOG 300 UNITS/3 ML VIAL SC PRN ×2 (05:09→08:59)
[2020-02-17 05:34] LABS: Anion Gap 14 mmol/L (10-20); BUN (Urea Nitrogen) 35 mg/dL (9.8-20.1); Calc. Creatinine Clearance 150 mL/min (70-130); Calcium 8.1 mg/dL (7.8-10.44); Carbon Dioxide 29 mmol/L (23-31); Chloride 101 mmol/L (98-107); Glucose 208 mg/dL (83-110); Potassium 4.7 mmol/L (3.5-5.1); Sodium 139 mmol/L (136-145)
[2020-02-17] MEDS: Enoxaparin Sodium 40 MG/0.4 ML SYRINGE SC SCH ×2 (07:40→19:44)
[2020-02-17] MEDS: Polyethylene Glycol 3350 17 GM Packet PER TUBE SCH (07:40)
[2020-02-17] MEDS: Rosuvastatin 10 MG TAB PO SCH (07:41)
[2020-02-17] MEDS: hydrALAZINE 25 MG TAB PER TUBE SCH ×4 (07:41→19:46)
[2020-02-17] MEDS: Famotidine 20 MG TAB PO SCH ×2 (07:41→19:46)
[2020-02-17] MEDS: Ascorbic Acid 500 mg Chewable Tablet PO SCH (07:41)
[2020-02-17] MEDS: Alogliptin 6.25 MG TAB PO SCH (07:41)
[2020-02-17] MEDS: Atenolol 50 MG TAB PO SCH (07:42)
[2020-02-17] MEDS: Haloperidol Lactate 5 MG/ML VIAL SLOW IVP PRN ×3 (08:09→19:44)
[2020-02-17 08:45] LABS: Actual Bicarbonate (HCO3a) 30.1 mEq/L (22-28); Base Excess (BEa) 6.4 mEq/L (-2.0 to +3.0); Calcium, Ionized (arterial) 1.19 mmol/L (1.12-1.30); Carboxyhemoglobin (COHb) 0.4 gm% (0.0-3.0); Hemoglobin (Hb) 11.1 g/dL (12.0-16.0); O2 Tension (PaO2), arterial 63.2 mmHg (> 70.0); Potassium - ABG Lab 4.49 mmol/L (3.70-5.30)
[2020-02-17 08:48] LABS: Puncture Site RBA
--- NOTE | 2020-02-17 10:40 | PRG ---
DATE OF SERVICE: 02/17/2020 SUBJECTIVE: The patient remains intubated on mechanical ventilation. She is awake and will follow commands. OBJECTIVE: VITAL SIGNS: Temperature 99.3, pulse 70, blood pressure 140/56, O2 saturation generally in the mid 90s. She is currently on SIMV rate 6, tidal volume 500, PEEP 5, pressure support 15, and FiO2 of 40%. HEENT: Remarkable for dry oral mucous membranes. She is intubated orally. NECK: No JVD. LUNGS: Coarse breath sounds. CARDIOVASCULAR: S1 and S2, regular. ABDOMEN: Soft and nontender. EXTREMITIES: No clubbing or cyanosis, but she is edematous. LABORATORY DATA: ABG; pH 7.5, pCO2 of 40, pO2 of 63. White blood cell count 4.3, hematocrit 31.5, and platelet count 70. Sodium 139, potassium 4.7, chloride 101, CO2 of 29, BUN 35, creatinine 0.5, glucose 208. ASSESSMENT: 1. COVID-19 pneumonia with acute respiratory failure, requiring mechanical ventilation. 2. Severe neuromuscular weakness. PLAN: 1. I believe a tracheostomy is planned for early next week. At the latest, her 20 days would be up on February 19, but in all likelihood, she has had the illness much longer than that. 2. Continue the steroids, but reduce the dose and dosing interval. 3. Continue current level of support with mechanical ventilation. 4. Would withhold diuretics at this time because she is developing a contraction alkalosis. Job ID: [id number]
[2020-02-17 11:35] LABS: SARS-CoV-2 IgG Ab Reactive (NonReactive); SARS-CoV-2 IgG Index 6.45 S/CO (< 1.40)
--- NOTE | 2020-02-17 17:40 | CON ---
DATE OF CONSULTATION: 02/17/2020 I was asked to see her for a tracheostomy and percutaneous endoscopic gastrostomy placement; however, she is still on isolation until Wednesday per Dr. Becerril. Due to that, even though she has a positive antibody, she still has a positive antigen as well. The plan is to wait until Wednesday to do this PEG and trach, so I will see her again tomorrow. Job ID: [id number]
--- NOTE | 2020-02-17 20:13 | PDOC.HOSPP ---
- Subjective Encounter Date: 02/17/20 Encounter Time: 10:00 Subjective: Patient was seen and examined in bed. She was in the ICU on ventilator support although she did follow commands. She has made some improvements so far - Objective Vital Signs & Weight: Vital Signs (12 hours) Temp Pulse Resp BP 02/17/20 19:46 56 L 131/50 L 02/17/20 18:37 56 L 131/50 L 02/17/20 15:39 68 158/64 H 02/17/20 14:54 68 158/64 H 02/17/20 13:52 13 02/17/20 13:51 97.9 F 02/17/20 12:10 69 145/60 H 02/17/20 10:58 69 145/60 H 02/17/20 08:51 99.3 F 02/17/20 08:13 60 135/56 L Weight Admit Weight 235 lb Weight 245 lb 5.992 oz Most Recent Monitor Data Heart Rate from ECG 53 NIBP 131/50 NIBP BP-Mean 77 Respiration from ECG 12 SpO2 97 I&O: 02/16/20 02/17/20 02/18/20 06:59 06:59 06:59 Intake Total 1843.8 2188 622 Output Total 1295 1255 685 Balance 548.8 933 -63 Result Diagrams: 02/17/20 04:00 02/17/20 04:00 Additional Labs: Accuchecks 02/17/20 02/17/20 02/16/20 08:13 04:23 20:41 POC Glucose 224 H 163 H 125 H Hospitalist ROS - Medication Medications: Active Medications Generic Name Dose Route Start Last Admin Trade Name Freq PRN Reason Stop Dose Admin Alogliptin Benzoate 12.5 mg 02/02/20 09:00 02/17/20 07:41 Alogliptin 6.25 Mg Tab PO 12.5 mg DAILY ARLEY Administration Ascorbic Acid 1,000 mg 02/01/20 09:00 02/17/20 07:41 Ascorbic Acid 500 Mg Chewable Tablet PO 1,000 mg DAILY ARLEY Administration Atenolol 50 mg 02/01/20 09:00 02/17/20 07:42 Atenolol 50 Mg Tab PO 50 mg DAILY ARLEY Administration Enalaprilat 1.25 mg 02/08/20 10:52 02/15/20 11:30 Enalaprilat Dihydrate 1.25 Mg/Ml Vial SLOW IVP 1.25 mg Q6H PRN Administration SBP Greater Than 170 Enoxaparin Sodium 40 mg 02/14/20 21:00 02/17/20 19:44 Enoxaparin Sodium 40 Mg/0.4 Ml Syringe SC 40 mg 0900,2100 ARLEY Administration Famotidine 20 mg 02/01/20 09:00 02/17/20 19:46 Famotidine 20 Mg Tab PO 20 mg BID ARLEY Administration Guaifenesin/Dextromethorphan 15 ml 01/31/20 21:30 02/02/20 02:04 Guaifenesin Dm 100-10/5 Ml Udcup PO 15 ml Q4H PRN Administration Cough Haloperidol Lactate 5 mg 02/02/20 08:47 02/17/20 19:44 Haloperidol Lactate 5 Mg/Ml Vial SLOW IVP 5 mg Q4H PRN Administration Agitation Hydralazine HCl 50 mg 02/10/20 21:00 02/17/20 19:46 Hydralazine 25 Mg Tab PER TUBE 50 mg QID ARLEY Administration Dexmedetomidine HCl 400 mcg/ 100 mls @ 0 mls/hr 02/14/20 09:15 02/17/20 19:46 Sodium Chloride IVPB 100 mls INF ARLEY Administration Protocol Titrate Insulin Human Lispro 0 units 01/31/20 22:19 02/17/20 08:59 Humalog 300 Units/3 Ml Vial SC 2 unit .BEDTIME SLIDING SC PRN Administration Bedtime Correctional Scale Insulin Human Lispro 0 units 02/10/20 19:11 02/17/20 05:09 Humalog 300 Units/3 Ml Vial SC 3 unit .AGGRESSIVE SLIDING PRN Administration Aggressive Correctional Scale Levothyroxine Sodium 100 mcg 02/04/20 06:00 02/17/20 05:09 Levothyroxine 100 Mcg Sdv IVP 100 mcg 0600 ARLEY Administration Methylprednisolone Sodium Succinate 20 mg 02/17/20 11:00 02/17/20 11:00 Methylprednisolone Sod Succ 40 Mg Vial IVP Not Given Q12H ARLEY Nystatin 0 gm 02/16/20 19:36 02/16/20 20:19 Nystatin Powder 15 Gm Bot TOP 1 applic BID PRN Administration Topical Irritations Polyethylene Glycol 17 gm 02/13/20 09:00 02/17/20 07:40 Polyethylene Glycol 3350 17 Gm Packet PER TUBE 17 gm DAILY ARLEY Administration Rosuvastatin Calcium 10 mg 02/01/20 09:00 02/17/20 07:41 Rosuvastatin 10 Mg Tab PO 10 mg DAILY ARLEY Administration Sterile Water 10 ml 02/06/20 00:18 02/07/20 04:21 Sterile Water 10 Ml Vial FS 10 ml PRN PRN Administration FOR VEC RECONST. - Exam General Appearance: awake alert General - other findings: On ventilator support but following commands. Heart: RRR, no murmur, no gallops Respiratory - other findings: Reduced air entry bilaterally. Ventilator support. Gastrointestinal: soft, non-tender, non-distended, normal bowel sounds Extremities: no cyanosis, no clubbing, no edema Psychiatric - other findings: Unable to assess Hosp A/P - Plan This is a 74-year-old female patient admitted with Covid pneumonia. She was admitted on 01/31/2020 and intubated on 02/02/2020. She has a history of SVT/atrial tachycardia. She was intubated and has been in the ICU. She generally has made significant improvement with her with pain alert and following commands. She would require tracheostomy in the next couple of days Pneumonia due to Covid Completed remdesivir Continue Solu-Medrol and anticoagulation. Pulmonology following. Acute hypoxic respiratory failure Secondary to above We will continue ventilator support Plan to place tracheostomy Surgery consulted Sepsis Likely due to Covid Was on cefepimediscontinued Continue monitoring. Diabetes mellitus Correctional insulin Monitor glucose Depression Continue home meds Morbid obesity Hypothyroidism next Dyslipidemia Thrombocytopenia Platelets 70 from 93 a day ago For the past 3 days Appears to be stable Monitor VT prophylaxison Lovenox CODE STATUSfull code. Palliative care on board Dispositionpending improvement
[2020-02-18 04:51] LABS: #Lymphocytes 0.4 thou/uL (1.20-3.40); #Monocytes 0.4 thou/uL (0.11-0.59); #Neutrophils 5.1 thou/uL (1.40-6.50); %Basophils 0.1 % (0.0-1.0); %Eosinophils 0.3 % (0.0-10.0); %Lymphocytes 7.3 % (21.0-51.0); %Monocytes 6.9 % (0.0-10.0); %Neutrophils 85.4 % (42.0-75.0); Hemoglobin 10.3 g/dL (12.0-16.0); Mean Corpuscular HGB CONC 31.2 g/dL (32.0-36.0); Mean Corpuscular Hemoglobin 29.8 pg (27.0-31.0); Mean Corpuscular Volume 95.5 fL (78.0-98.0); Mean Platelet Volume 10.8 fL (7.4-10.4); Platelet Count 85 thou/uL (130-400); RBC Distribution Width 14.9 % (11.5-14.5); Red Blood Cell (RBC) Count 3.45 mill/uL (4.20-5.40)
[2020-02-18 05:05] LABS: Anion Gap 12 mmol/L (10-20); BUN (Urea Nitrogen) 31 mg/dL (9.8-20.1); Calc. Creatinine Clearance 150 mL/min (70-130); Calcium 8.3 mg/dL (7.8-10.44); Carbon Dioxide 30 mmol/L (23-31); Chloride 102 mmol/L (98-107); Glucose 157 mg/dL (83-110); Potassium 4.8 mmol/L (3.5-5.1); Sodium 139 mmol/L (136-145)
[2020-02-18] MEDS: Levothyroxine 100 MCG SDV IVP SCH (06:12)
[2020-02-18 07:28] LABS: Actual Bicarbonate (HCO3a) 27.9 mEq/L (22-28); Base Excess (BEa) 4.5 mEq/L (-2.0 to +3.0); CO2 Tension 37.2 mmHg (35.0-45.0); Carboxyhemoglobin (COHb) 0.5 gm% (0.0-3.0); Hemoglobin (Hb) 11.2 g/dL (12.0-16.0); O2 Tension (PaO2), arterial 83.5 mmHg (> 70.0); Potassium - ABG Lab 4.54 mmol/L (3.70-5.30); pH, Arterial 7.49 (7.35-7.45)
[2020-02-18 07:30] LABS: Puncture Site RRA
[2020-02-18] MEDS: Alogliptin 6.25 MG TAB PO SCH (07:53)
[2020-02-18] MEDS: hydrALAZINE 25 MG TAB PER TUBE SCH ×4 (07:54→21:32)
[2020-02-18] MEDS: Enoxaparin Sodium 40 MG/0.4 ML SYRINGE SC SCH ×2 (07:54→21:10)
[2020-02-18] MEDS: Famotidine 20 MG TAB PO SCH ×2 (07:54→21:31)
[2020-02-18] MEDS: Atenolol 50 MG TAB PO SCH (07:54)
[2020-02-18] MEDS: Rosuvastatin 10 MG TAB PO SCH (07:54)
[2020-02-18] MEDS: Ascorbic Acid 500 mg Chewable Tablet PO SCH (07:54)
[2020-02-18] MEDS: Polyethylene Glycol 3350 17 GM Packet PER TUBE SCH (07:55)
--- NOTE | 2020-02-18 08:07 | PRG ---
DATE OF SERVICE: 02/18/2020 SUBJECTIVE: The patient is doing extremely well this morning. She is awake, alert, follows all commands. OBJECTIVE: VITAL SIGNS: On exam, temperature 98.4, pulse 63, blood pressure 132/54, and O2 saturation 98%. 24-hour intake 1875, output 1265. HEENT: Unremarkable. NECK: No JVD. LUNGS: Clear anteriorly. CARDIOVASCULAR: S1 and S2, regular. ABDOMEN: Soft, nontender to palpation. EXTREMITIES: No clubbing, cyanosis, or edema. NEUROLOGICAL: She follows all commands for me. She is able to move her neck off the pillow. LABORATORY DATA: Sodium 139, potassium 4.8, chloride 102, CO2 of 30, BUN 31, creatinine is 0.5, glucose 157. White blood cell count 6.0, hematocrit 32.9, and platelet count 85. PH of 7.49, pCO2 of 37, pO2 of 83 on SIMV rate 6, tidal volume 500, PEEP 5, pressure support 15, and FiO2 of 40%. ASSESSMENT: 1. Coronavirus 2019 pneumonia. 2. Improved neuromuscular weakness. PLAN: I believe the patient is probably going to pass a spontaneous breathing trial today and she should be a candidate for extubation later this morning. We will closely monitor. The above encompassed 30 minutes critical time. Job ID: [id number]
[2020-02-18] MEDS: methylPREDNISolone Sod Succ 40 MG VIAL IVP SCH ×2 (10:48→22:50)
--- NOTE | 2020-02-18 16:02 | PDOC.HOSPP ---
- Subjective Encounter Date: 02/18/20 Encounter Time: 13:00 Subjective: Patient was seen and examined in bed. She was extubated earlier this morning. She is generally weak but otherwise still stable. She is too weak to effectively communicate. She tries to sayI want to go home. - Objective Vital Signs & Weight: Vital Signs (12 hours) Temp Pulse Resp BP Pulse Ox 02/18/20 13:03 62 138/55 L 02/18/20 11:54 98.1 F 02/18/20 11:19 99 02/18/20 11:00 98.1 F 02/18/20 08:33 97 02/18/20 08:23 62 138/55 L 02/18/20 07:54 68 132/54 L 02/18/20 07:35 14 99 02/18/20 07:15 68 132/54 L 02/18/20 06:00 14 Weight Admit Weight 235 lb Weight 245 lb 5.992 oz Most Recent Monitor Data Heart Rate from ECG 57 NIBP 157/64 NIBP BP-Mean 95 Respiration from ECG 16 SpO2 100 I&O: 02/17/20 02/18/20 02/19/20 06:59 06:59 06:59 Intake Total 2188 1875 0 Output Total 1255 1265 525 Balance 933 610 -525 Result Diagrams: 02/18/20 04:10 02/18/20 04:10 Additional Labs: Accuchecks 02/18/20 02/18/20 02/18/20 14:16 10:29 04:13 POC Glucose 102 H 162 H 125 H 02/17/20 23:00 POC Glucose 110 H Hospitalist ROS - Medication Medications: Active Medications Generic Name Dose Route Start Last Admin Trade Name Freq PRN Reason Stop Dose Admin Alogliptin Benzoate 12.5 mg 02/02/20 09:00 02/18/20 07:53 Alogliptin 6.25 Mg Tab PO 12.5 mg DAILY ARLEY Administration Ascorbic Acid 1,000 mg 02/01/20 09:00 02/18/20 07:54 Ascorbic Acid 500 Mg Chewable Tablet PO 1,000 mg DAILY ARLEY Administration Atenolol 50 mg 02/01/20 09:00 02/18/20 07:54 Atenolol 50 Mg Tab PO 50 mg DAILY ARLEY Administration Enalaprilat 1.25 mg 02/08/20 10:52 02/15/20 11:30 Enalaprilat Dihydrate 1.25 Mg/Ml Vial SLOW IVP 1.25 mg Q6H PRN Administration SBP Greater Than 170 Enoxaparin Sodium 40 mg 02/14/20 21:00 02/18/20 07:54 Enoxaparin Sodium 40 Mg/0.4 Ml Syringe SC 40 mg 0900,2100 ARLEY Administration Famotidine 20 mg 02/01/20 09:00 02/18/20 07:54 Famotidine 20 Mg Tab PO 20 mg BID ARLEY Administration Guaifenesin/Dextromethorphan 15 ml 01/31/20 21:30 02/02/20 02:04 Guaifenesin Dm 100-10/5 Ml Udcup PO 15 ml Q4H PRN Administration Cough Hydralazine HCl 50 mg 02/10/20 21:00 02/18/20 13:03 Hydralazine 25 Mg Tab PER TUBE Not Given QID ARLEY Dexmedetomidine HCl 400 mcg/ 100 mls @ 0 mls/hr 02/14/20 09:15 02/18/20 13:03 Sodium Chloride IVPB 100 mls INF ARLEY Administration Protocol Titrate Insulin Human Lispro 0 units 01/31/20 22:19 02/17/20 08:59 Humalog 300 Units/3 Ml Vial SC 2 unit .BEDTIME SLIDING SC PRN Administration Bedtime Correctional Scale Insulin Human Lispro 0 units 02/10/20 19:11 02/17/20 05:09 Humalog 300 Units/3 Ml Vial SC 3 unit .AGGRESSIVE SLIDING PRN Administration Aggressive Correctional Scale Levothyroxine Sodium 100 mcg 02/04/20 06:00 02/18/20 06:12 Levothyroxine 100 Mcg Sdv IVP 100 mcg 0600 ARLEY Administration Methylprednisolone Sodium Succinate 20 mg 02/17/20 11:00 02/18/20 10:48 Methylprednisolone Sod Succ 40 Mg Vial IVP 20 mg Q12H ARLEY Administration Nystatin 0 gm 02/16/20 19:36 02/16/20 20:19 Nystatin Powder 15 Gm Bot TOP 1 applic BID PRN Administration Topical Irritations Polyethylene Glycol 17 gm 02/13/20 09:00 02/18/20 07:55 Polyethylene Glycol 3350 17 Gm Packet PER TUBE Not Given DAILY [facility] Rosuvastatin Calcium 10 mg 02/01/20 09:00 02/18/20 07:54 Rosuvastatin 10 Mg Tab PO 10 mg DAILY ARLEY Administration Sterile Water 10 ml 02/06/20 00:18 02/07/20 04:21 Sterile Water 10 Ml Vial FS 10 ml PRN PRN Administration FOR VEC RECONST. - Exam General Appearance: ill appearing General - other findings: Awake, weak in bed. Heart: RRR, no murmur, no gallops, no rubs Respiratory - other findings: Reduced air entry bilaterally. Occasional wheezing Gastrointestinal: soft, non-tender, non-distended, normal bowel sounds Extremities: no cyanosis, no clubbing, 1+ LE edema Neurological: cranial nerve grossly intact, no focal deficits Psychiatric - other findings: Unable to assess Hosp A/P - Plan This is a 74-year-old female patient admitted with Covid pneumonia. She was admitted on 01/31/2020 and intubated on 02/02/2020. She has a history of SVT/atrial tachycardia. She was intubated and has been in the ICU. She was successfully extubated today after passing SBT. Continue close monitoring in unit Pneumonia due to Covid Completed remdesivir Continue Solu-Medrol and anticoagulation. Pulmonology following. Acute hypoxic respiratory failure Secondary to above Successfully extubated today. Continue monitoring Sepsis Likely due to Covid Was on cefepimediscontinued Continue monitoring. Diabetes mellitus Correctional insulin Blood glucose stable Continue monitoring Depression Continue home meds Morbid obesity Hypothyroidism Continue levothyroxine Dyslipidemia Thrombocytopenia Stablepatient between 70 and 80s For the past 3 days Appears to be stable Monitor VT prophylaxison Lovenox CODE STATUSfull code. Palliative care on board Dispositionpending improvement
[2020-02-19 04:18] LABS: #Lymphocytes 0.5 thou/uL (1.20-3.40); #Monocytes 0.3 thou/uL (0.11-0.59); #Neutrophils 5.9 thou/uL (1.40-6.50); %Basophils 0.4 % (0.0-1.0); %Eosinophils 0.4 % (0.0-10.0); %Lymphocytes 7.7 % (21.0-51.0); %Monocytes 4.4 % (0.0-10.0); %Neutrophils 87.2 % (42.0-75.0); Hemoglobin 11.2 g/dL (12.0-16.0); Mean Corpuscular HGB CONC 31.5 g/dL (32.0-36.0); Mean Corpuscular Volume 95.3 fL (78.0-98.0); Mean Platelet Volume 10.6 fL (7.4-10.4); Platelet Count 101 thou/uL (130-400); RBC Distribution Width 15.3 % (11.5-14.5); Red Blood Cell (RBC) Count 3.72 mill/uL (4.20-5.40); White Blood Cell (WBC) Count 6.7 thou/uL (4.8-10.8)
[2020-02-19 04:26] LABS: Anion Gap 14 mmol/L (10-20); BUN (Urea Nitrogen) 21 mg/dL (9.8-20.1); Calc. Creatinine Clearance 164 mL/min (70-130); Calcium 8.5 mg/dL (7.8-10.44); Carbon Dioxide 27 mmol/L (23-31); Chloride 101 mmol/L (98-107); Glucose 113 mg/dL (83-110); Potassium 4.6 mmol/L (3.5-5.1); Sodium 137 mmol/L (136-145)
[2020-02-19] MEDS: Levothyroxine 100 MCG SDV IVP SCH (05:51)
[2020-02-19] MEDS: Enalaprilat Dihydrate 1.25 MG/ML VIAL SLOW IVP PRN (06:09)
[2020-02-19] MEDS: Enoxaparin Sodium 40 MG/0.4 ML SYRINGE SC SCH ×2 (07:33→20:38)
[2020-02-19] MEDS: Alogliptin 6.25 MG TAB PO SCH ×2 (07:33→09:56)
[2020-02-19] MEDS: Polyethylene Glycol 3350 17 GM Packet PER TUBE SCH (07:34)
[2020-02-19] MEDS: Atenolol 50 MG TAB PO SCH ×2 (07:34→09:57)
[2020-02-19] MEDS: Ascorbic Acid 500 mg Chewable Tablet PO SCH ×2 (07:34→09:56)
[2020-02-19] MEDS: Famotidine 20 MG TAB PO SCH ×3 (07:34→20:40)
[2020-02-19] MEDS: hydrALAZINE 25 MG TAB PER TUBE SCH ×5 (07:34→20:39)
[2020-02-19] MEDS: Rosuvastatin 10 MG TAB PO SCH ×2 (07:35→09:57)
[2020-02-19] MEDS: methylPREDNISolone Sod Succ 40 MG VIAL IVP SCH ×2 (10:24→22:47)
--- NOTE | 2020-02-19 11:22 | PRG ---
DATE OF SERVICE: 02/19/2020 SUBJECTIVE: A 74-year-old female, post extubation yesterday, remains weak. OBJECTIVE: VITAL SIGNS: Blood pressure 170/86, pulse 90, respiratory rate 18, saturations . CHEST: No wheezing. No crackles. CARDIAC: Normal S1 and S2. No gallops. ABDOMEN: No masses. LABORATORY DATA: Unremarkable. ASSESSMENT AND PLAN: Respiratory failure, duffy positive pneumonia, status post remdesivir, convalescent plasma, status post proning. We will try and stop all sedation and continue PT, supportive care. She failed a swallow test. We will put a feeding tube eventually placement. Job ID: [id number]
--- NOTE | 2020-02-19 13:58 | RAD ---
Exam: 1 view abdomen HISTORY: Dobbhoff feeding tube placement FINDINGS: 1. View abdomen demonstrates Dobbhoff feeding tube in the distal stomach/proximal duodenum. There contreras ears to be possible right-sided pneumothorax. Patient is already scheduled for portable chest radiograph. IMPRESSION: Dobbhoff feeding tube and pneumothorax as above. Code CR
--- NOTE | 2020-02-19 14:26 | RAD ---
Chest AP view INDICATION: Follow-up possible pneumothorax COMPARISON: KUB dated February 19, 2020 and chest radiograph dated February 15, 2020. FINDINGS: Lungs: There is a small right apical pneumothorax. There is persistent airspace disease of the left midlung and left lower lobe. Scattered fibrotic change involving the mid to lower lobes are stable. Cardiac silhouette: The cardiomediastinal silhouette appears within normal limits. Pulmonary vasculature: Normal Pleural spaces: There is a small right apical pneumothorax estimated to be approximately 10-15% in s ize. Upper abdomen: No abnormality seen. Osseous structures: No acute osseous abnormality. Additional findings: Dobbhoff feeding tube tip projects below the left hemidiaphragm and beyond the [id number]. IMPRESSION: Small right apical pneumothorax. 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 Findings were called to Candelario Carvalho RN at 2:23 PM on February 19, 2020.
--- NOTE | 2020-02-19 19:05 | PDOC.HOSPP ---
- Subjective Encounter Date: 02/19/20 Encounter Time: 14:00 Subjective: Patient was seen and examined in bed. She was minimally communicative. She was extubated a day ago. - Objective Vital Signs & Weight: Vital Signs (12 hours) Temp BP Pulse Ox 02/19/20 17:37 98.3 F 02/19/20 15:08 177/86 H 02/19/20 14:55 98.9 F 02/19/20 14:00 98.9 F 02/19/20 10:22 177/86 H 02/19/20 09:57 177/86 H 02/19/20 09:55 177/86 H 02/19/20 07:23 95 Weight Admit Weight 235 lb Weight 245 lb 5.992 oz Most Recent Monitor Data Heart Rate from ECG 73 NIBP 164/56 NIBP BP-Mean 92 Respiration from ECG 15 SpO2 98 I&O: 02/18/20 02/19/20 02/20/20 06:59 06:59 06:59 Intake Total 1875 700 254 Output Total 7908 1745 1075 Balance 610 -1045 -821 Result Diagrams: 02/19/20 03:49 02/19/20 03:49 Additional Labs: Accuchecks 02/19/20 02/19/20 02/19/20 09:21 04:27 00:08 POC Glucose 103 H 118 H 88 02/18/20 02/18/20 02/18/20 23:02 22:14 21:20 POC Glucose 97 118 H 62 L 02/17/20 13:36 POC Glucose 137 H Hospitalist ROS - Medication Medications: Active Medications Generic Name Dose Route Start Last Admin Trade Name Shay PRN Reason Stop Dose Admin Alogliptin Benzoate 12.5 mg 02/02/20 09:00 02/19/20 09:56 Alogliptin 6.25 Mg Tab PO 12.5 mg DAILY ARLEY Administration Ascorbic Acid 1,000 mg 02/01/20 09:00 02/19/20 09:56 Ascorbic Acid 500 Mg Chewable Tablet PO 1,000 mg DAILY ARLEY Administration Atenolol 50 mg 02/01/20 09:00 02/19/20 09:57 Atenolol 50 Mg Tab PO 50 mg DAILY ARLEY Administration Dextrose/Water 25 gm 01/31/20 22:19 02/18/20 21:33 Dextrose 50% Abboject 50 Ml Syringe SLOW IVP 25 gm PRN PRN Administration Hypoglycemia Enalaprilat 1.25 mg 02/08/20 10:52 02/19/20 06:09 Enalaprilat Dihydrate 1.25 Mg/Ml Vial SLOW IVP 1.25 mg Q6H PRN Administration SBP Greater Than 170 Enoxaparin Sodium 40 mg 02/14/20 21:00 02/19/20 07:33 Enoxaparin Sodium 40 Mg/0.4 Ml Syringe SC 40 mg 0900,2100 ARLEY Administration Famotidine 20 mg 02/01/20 09:00 02/19/20 09:56 Famotidine 20 Mg Tab PO 20 mg BID ARLEY Administration Guaifenesin/Dextromethorphan 15 ml 01/31/20 21:30 02/02/20 02:04 Guaifenesin Dm 100-10/5 Ml Udcup PO 15 ml Q4H PRN Administration Cough Hydralazine HCl 50 mg 02/10/20 21:00 02/19/20 15:08 Hydralazine 25 Mg Tab PER TUBE 50 mg QID ARLEY Administration Insulin Human Lispro 0 units 01/31/20 22:19 02/17/20 08:59 Humalog 300 Units/3 Ml Vial SC 2 unit .BEDTIME SLIDING SC PRN Administration Bedtime Correctional Scale Insulin Human Lispro 0 units 02/10/20 19:11 02/17/20 05:09 Humalog 300 Units/3 Ml Vial SC 3 unit .AGGRESSIVE SLIDING PRN Administration Aggressive Correctional Scale Levothyroxine Sodium 100 mcg 02/04/20 06:00 02/19/20 05:51 Levothyroxine 100 Mcg Sdv IVP 100 mcg 0600 ARLEY Administration Methylprednisolone Sodium Succinate 20 mg 02/17/20 11:00 02/19/20 10:24 Methylprednisolone Sod Succ 40 Mg Vial IVP 20 mg Q12H ARLEY Administration Nystatin 0 gm 02/16/20 19:36 02/16/20 20:19 Nystatin Powder 15 Gm Bot TOP 1 applic BID PRN Administration Topical Irritations Polyethylene Glycol 17 gm 02/13/20 09:00 02/19/20 07:34 Polyethylene Glycol 3350 17 Gm Packet PER TUBE Not Given DAILY [facility] Rosuvastatin Calcium 10 mg 02/01/20 09:00 02/19/20 09:57 Rosuvastatin 10 Mg Tab PO 10 mg DAILY ARLEY Administration Sterile Water 10 ml 02/06/20 00:18 02/07/20 04:21 Sterile Water 10 Ml Vial FS 10 ml PRN PRN Administration FOR VEC RECONST. - Exam General - other findings: Awake, follows commands Heart: RRR, no murmur, no gallops Respiratory - other findings: Reduced air entry bilaterally Extremities: no cyanosis, no clubbing, 1+ LE edema Neurological: cranial nerve grossly intact, no focal deficits Psychiatric - other findings: Oriented to self Hosp A/P - Plan This is a 74-year-old female patient admitted with Covid pneumonia. She was admitted on 01/31/2020 and intubated on 02/02/2020. She has a history of SVT/atrial tachycardia. She was intubated and has been in the ICU. She was successfully extubated a day ago after passing SBT. Continue close monitoring in unit. Currently having a Dobbhoff tube passed on account of failing swallow evaluation Pneumonia due to Covid Completed remdesivir Continue Solu-Medrol and anticoagulation. Pulmonology following. Acute hypoxic respiratory failure Secondary to above Successfully extubated today. Continue monitoring Hypertension We will start amlodipine Continue as needed labetalol/hydralazine Monitor BP Sepsis Likely due to Covid Was on cefepimediscontinued Continue monitoring. Diabetes mellitus Correctional insulin Blood glucose stable Continue monitoring Depression Continue home meds Morbid obesity Hypothyroidism Continue levothyroxine Dyslipidemia Thrombocytopenia Stablepatient between 70 and 80s For the past 3 days Appears to be stable Monitor VT prophylaxison Lovenox CODE STATUSfull code. Palliative care on board Dispositionpending improvement
[2020-02-19] MEDS: Amlodipine 10 MG TAB PO SCH (20:40)
[2020-02-20 03:57] LABS: #Basophils 0.1 thou/uL (0.0-0.2); #Eosinphils 0.1 thou/uL (0.0-0.7); #Lymphocytes 0.2 thou/uL (1.20-3.40); #Monocytes 0.3 thou/uL (0.11-0.59); %Basophils 0.9 % (0.0-1.0); %Eosinophils 0.5 % (0.0-10.0); %Monocytes 2.1 % (0.0-10.0); %Neutrophils 94.4 % (42.0-75.0); Hemoglobin 12.2 g/dL (12.0-16.0); Mean Corpuscular HGB CONC 32.8 g/dL (32.0-36.0); Mean Corpuscular Hemoglobin 31.2 pg (27.0-31.0); Mean Corpuscular Volume 94.9 fL (78.0-98.0); Mean Platelet Volume 9.7 fL (7.4-10.4); Platelet Count 134 thou/uL (130-400); RBC Distribution Width 15.4 % (11.5-14.5); White Blood Cell (WBC) Count 11.7 thou/uL (4.8-10.8)
[2020-02-20 04:17] LABS: Anion Gap 20 mmol/L (10-20); BUN (Urea Nitrogen) 15 mg/dL (9.8-20.1); Calc. Creatinine Clearance 147 mL/min (70-130); Calcium 8.5 mg/dL (7.8-10.44); Carbon Dioxide 22 mmol/L (23-31); Chloride 98 mmol/L (98-107); Glucose 238 mg/dL (83-110); Potassium 4.6 mmol/L (3.5-5.1); Sodium 135 mmol/L (136-145)
[2020-02-20] MEDS: Levothyroxine 100 MCG SDV IVP SCH (05:50)
[2020-02-20] MEDS: HumaLOG 300 UNITS/3 ML VIAL SC PRN ×4 (06:10→22:29)
--- NOTE | 2020-02-20 07:58 | RAD ---
Portable frontal chest radiograph: 02/20/2020 COMPARISON: 02/19/2020 at 2:10 PM HISTORY: Right-sided pneumothorax FINDINGS: There is a small right-sided pneumothorax present with a lateral component extending from t he costophrenic angle region to the apex. In craniocaudal dimension the pneumothorax measures approximately 1.4 cm at the level of the apex, which suggests interval decrease in size as it previou sly measured 2.8 cm in craniocaudal dimension. However, the lateral component is slightly more conspicuous. There is a stable Dobbhoff tube. There are nonspecific interstitial opacities in the per ihilar regions and both lung bases which may signify atypical infectious pneumonitis, such as Covid pneumonia. IMPRESSION: Right-sided pneumothorax. Close follow-up advised. Interstitial opacities as detailed abo ve.
[2020-02-20] MEDS: hydrALAZINE 25 MG TAB PER TUBE SCH ×4 (08:06→21:12)
[2020-02-20] MEDS: Ascorbic Acid 500 mg Chewable Tablet PO SCH (08:06)
[2020-02-20] MEDS: Atenolol 50 MG TAB PO SCH (08:06)
[2020-02-20] MEDS: Famotidine 20 MG TAB PO SCH ×2 (08:06→21:12)
[2020-02-20] MEDS: Polyethylene Glycol 3350 17 GM Packet PER TUBE SCH (08:06)
[2020-02-20] MEDS: Rosuvastatin 10 MG TAB PO SCH (08:06)
[2020-02-20] MEDS: Enoxaparin Sodium 40 MG/0.4 ML SYRINGE SC SCH ×2 (08:07→21:14)
[2020-02-20] MEDS: Alogliptin 6.25 MG TAB PO SCH (08:12)
--- NOTE | 2020-02-20 09:32 | PRG ---
DATE OF SERVICE: 02/20/2020 SUBJECTIVE: A 74-year-old female who is much better this morning. She is day #20 in the ICU. OBJECTIVE: VITAL SIGNS: Afebrile, pulse 75, blood pressure 170/86, sats are 95% on 3 L. She still got a small pneumothorax. CHEST: No wheezing. No crackles. CARDIAC: Normal S1, S2. No gallops. ABDOMEN: No masses. LABORATORY DATA: Unremarkable. ASSESSMENT: Respiratory failure, duffy positive pneumonia, pneumothorax, severe deconditioning from prolonged ICU. PLAN: She can be transferred to step-down unit. She has ongoing aggressive PT, supportive care. Switch over to probably some oral prednisone in the next 24 to 48 hours. We will follow. Job ID: [id number]
[2020-02-20] MEDS: methylPREDNISolone Sod Succ 40 MG VIAL IVP SCH ×2 (12:10→22:55)
--- NOTE | 2020-02-20 17:45 | PDOC.HOSPP ---
- Subjective Encounter Date: 02/20/20 Encounter Time: 10:00 Subjective: Patient was seen and examined in bed No significant events overnight. She still remains weak Tries to communicate. She follows instructions - Objective Vital Signs & Weight: Vital Signs (12 hours) Temp Pulse Pulse Pulse BP BP BP 02/20/20 15:00 98.1 F 02/20/20 12:10 75 187/93 H 02/20/20 10:45 77 73 135/62 151/57 H 02/20/20 10:00 98.8 F 02/20/20 08:06 75 177/86 H 02/20/20 07:46 Pulse Ox Pulse Ox Pulse Ox 02/20/20 15:00 02/20/20 12:10 02/20/20 10:45 98 98 02/20/20 10:00 02/20/20 08:06 02/20/20 07:46 98 Weight Admit Weight 235 lb Weight 245 lb 5.992 oz Most Recent Monitor Data Heart Rate from ECG 79 NIBP 163/63 NIBP BP-Mean 96 Respiration from ECG 21 SpO2 99 I&O: 02/19/20 02/20/20 02/21/20 06:59 06:59 06:59 Intake Total 700 914 Output Total 5239 5191 625 [facility] -1045 -1451 -625 Result Diagrams: 02/20/20 03:19 02/20/20 03:19 Additional Labs: Accuchecks 02/20/20 02/20/20 02/19/20 17:16 12:13 22:32 POC Glucose 244 H 198 H 158 H 02/19/20 13:31 POC Glucose 106 H Hospitalist ROS - Medication Medications: Active Medications Generic Name Dose Route Start Last Admin Trade Name Freq PRN Reason Stop Dose Admin Alogliptin Benzoate 12.5 mg 02/02/20 09:00 02/20/20 08:12 Alogliptin 6.25 Mg Tab PO 12.5 mg DAILY ARLEY Administration Amlodipine Besylate 10 mg 02/19/20 21:00 02/19/20 20:40 Amlodipine 10 Mg Tab PO 10 mg HS ARLEY Administration Ascorbic Acid 1,000 mg 02/01/20 09:00 02/20/20 08:06 Ascorbic Acid 500 Mg Chewable Tablet PO 1,000 mg DAILY ARLEY Administration Atenolol 50 mg 02/01/20 09:00 02/20/20 08:06 Atenolol 50 Mg Tab PO 50 mg DAILY ARLEY Administration Dextrose/Water 25 gm 01/31/20 22:19 02/18/20 21:33 Dextrose 50% Abboject 50 Ml Syringe SLOW IVP 25 gm PRN PRN Administration Hypoglycemia Enalaprilat 1.25 mg 02/08/20 10:52 02/19/20 06:09 Enalaprilat Dihydrate 1.25 Mg/Ml Vial SLOW IVP 1.25 mg Q6H PRN Administration SBP Greater Than 170 Enoxaparin Sodium 40 mg 02/14/20 21:00 02/20/20 08:07 Enoxaparin Sodium 40 Mg/0.4 Ml Syringe SC 40 mg 09,2099 ARLEY Administration Famotidine 20 mg 02/01/20 09:00 02/20/20 08:06 Famotidine 20 Mg Tab PO 20 mg BID ARLEY Administration Guaifenesin/Dextromethorphan 15 ml 01/31/20 21:30 02/02/20 02:04 Guaifenesin Dm 100-10/5 Ml Udcup PO 15 ml Q4H PRN Administration Cough Hydralazine HCl 50 mg 02/10/20 21:00 02/20/20 12:10 Hydralazine 25 Mg Tab PER TUBE 50 mg QID ARLEY Administration Insulin Human Lispro 0 units 01/31/20 22:19 02/20/20 06:10 Humalog 300 Units/3 Ml Vial SC 2 unit .BEDTIME SLIDING SC PRN Administration Bedtime Correctional Scale Insulin Human Lispro 0 units 02/10/20 19:11 02/20/20 17:18 Humalog 300 Units/3 Ml Vial SC 9 unit .AGGRESSIVE SLIDING PRN Administration Aggressive Correctional Scale Levothyroxine Sodium 100 mcg 02/04/20 06:00 02/20/20 05:50 Levothyroxine 100 Mcg Sdv IVP 100 mcg 0600 ARLEY Administration Methylprednisolone Sodium Succinate 20 mg 02/17/20 11:00 02/20/20 12:10 Methylprednisolone Sod Succ 40 Mg Vial IVP 20 mg Q12H ARLEY Administration Nystatin 0 gm 02/16/20 19:36 02/16/20 20:19 Nystatin Powder 15 Gm Bot TOP 1 applic BID PRN Administration Topical Irritations Polyethylene Glycol 17 gm 02/13/20 09:00 02/20/20 08:06 Polyethylene Glycol 3350 17 Gm Packet PER TUBE 17 gm DAILY ARLEY Administration Rosuvastatin Calcium 10 mg 02/01/20 09:00 02/20/20 08:06 Rosuvastatin 10 Mg Tab PO 10 mg DAILY ARLEY Administration Sterile Water 10 ml 02/06/20 00:18 02/07/20 04:21 Sterile Water 10 Ml Vial FS 10 ml PRN PRN Administration FOR VEC RECONST. - Exam General Appearance: awake alert General - other findings: Drowsy and ill looking Heart: RRR, no murmur, no gallops Respiratory - other findings: Reduced air entry bilaterally Gastrointestinal: soft, non-tender, non-distended, normal bowel sounds Extremities: no cyanosis, no clubbing, no edema Hosp A/P - Plan This is a 74-year-old female patient admitted with Covid pneumonia. She was admitted on 01/31/2020 and intubated on 02/02/2020. She has a history of SVT/atrial tachycardia. She was successfully extubated on 02/17/2018 Continue close monitoring in unit. Currently having a Dobbhoff tube passed on account of failing swallow evaluation She is making gradual improvements. Plan is to transfer to stepdown unit Pneumonia due to Covid Completed remdesivir Continue Solu-Medrol and anticoagulation. Pulmonology following. Acute hypoxic respiratory failure Secondary to above Successfully extubated today. Continue monitoring Hypertension We will start amlodipine Continue as needed labetalol/hydralazine Monitor BP Sepsis Likely due to Covid Was on cefepimediscontinued Continue monitoring. Diabetes mellitus Correctional insulin Blood glucose stable Continue monitoring Depression Continue home meds Morbid obesity Hypothyroidism Continue levothyroxine Dyslipidemia Thrombocytopenia Stablepatient between 70 and 80s For the past 3 days Appears to be stable Monitor [place] prophylaxison Lovenox CODE STATUSfull code. Palliative care on board [facility]
[2020-02-20] MEDS: Amlodipine 10 MG TAB PO SCH (21:13)
[2020-02-21] MEDS: HumaLOG 300 UNITS/3 ML VIAL SC PRN ×2 (04:28→11:12)
[2020-02-21] MEDS: Levothyroxine 100 MCG SDV IVP SCH (06:13)
--- NOTE | 2020-02-21 07:55 | RAD ---
Portable frontal chest radiograph: 02/21/2020 COMPARISON: 02/20/2020 HISTORY: Ventilated patient, pneumothorax FINDINGS: There is no endotracheal tube. Stable Dobbhoff tube. There is a small pneumothorax in the r ight lung apex which has decreased in size when compared to the prior exam. No pneumothorax on the left. Linear interstitial density with associated superimposed groundglass opacity noted in the perihilar r egions and both lung bases, similar when compared to prior imaging. IMPRESSION: Small residual right apical pneumothorax, decreased in volume when compared to the prior exam. Otherwise no significant interval change.
--- NOTE | 2020-02-21 09:18 | PRG ---
DATE OF SERVICE: 02/21/2020 SUBJECTIVE: This morning, she is weak, but not in much respiratory distress. OBJECTIVE: VITAL SIGNS: Sats are 96% on 3 L, blood pressure 148/80, , maximum temperature is 97. CHEST: Rhonchi bilaterally. CARDIAC: Normal S1 and S2. No gallops. ABDOMEN: No masses. IMAGING STUDIES: X-ray shows resolution of the small right-sided pneumothorax. ASSESSMENT AND PLAN: Respiratory failure, duffy positive pneumonia, severe deconditioning. Neb treatment has been initiated. I am going to probably switch over to oral prednisone. aggressive PT, supportive care. She may require long-term rehab. Job ID: [id number]
[2020-02-21] MEDS: Enoxaparin Sodium 40 MG/0.4 ML SYRINGE SC SCH ×2 (09:24→21:34)
[2020-02-21] MEDS: Alogliptin 6.25 MG TAB PO SCH (09:24)
[2020-02-21] MEDS: hydrALAZINE 25 MG TAB PER TUBE SCH ×4 (09:25→21:34)
[2020-02-21] MEDS: Atenolol 50 MG TAB PO SCH (09:25)
[2020-02-21] MEDS: Rosuvastatin 10 MG TAB PO SCH (09:25)
[2020-02-21] MEDS: Ascorbic Acid 500 mg Chewable Tablet PO SCH (09:25)
[2020-02-21] MEDS: predniSONE 20 MG TAB PO SCH ×2 (09:25→21:33)
[2020-02-21] MEDS: Famotidine 20 MG TAB PO SCH ×2 (09:25→21:34)
[2020-02-21] MEDS: Polyethylene Glycol 3350 17 GM Packet PER TUBE SCH (09:26)
[2020-02-21] MEDS: Acetaminophen 325 MG TAB PO PRN (09:36)
--- NOTE | 2020-02-21 17:25 | PDOC.HOSPP ---
- Subjective Encounter Date: 02/21/20 Encounter Time: 10:00 Subjective: Patient was seen and examined. She has been transferred out of bed to chair However still generally weak. Not answering any questions for me today. - Objective Vital Signs & Weight: Vital Signs (12 hours) Temp Pulse Pulse Pulse Resp BP BP 02/21/20 15:00 98.8 F 02/21/20 14:08 75 15 02/21/20 11:00 99.9 F H 02/21/20 10:35 78 81 129/44 L 02/21/20 10:06 99.2 F 02/21/20 09:36 101.0 F H 02/21/20 09:25 85 130/46 L 02/21/20 08:00 101.0 F H 02/21/20 04:00 97.7 F BP Pulse Ox Pulse Ox Pulse Ox 02/21/20 15:00 02/21/20 14:08 100 02/21/20 11:00 02/21/20 10:35 122/45 L 97 97 02/21/20 10:06 02/21/20 09:36 02/21/20 09:25 02/21/20 08:00 100 02/21/20 04:00 Weight Admit Weight 235 lb Weight 245 lb 5.992 oz Most Recent Monitor Data Heart Rate from ECG 75 NIBP 155/58 NIBP BP-Mean 90 Respiration from ECG 17 SpO2 98 I&O: 02/20/20 02/21/20 02/22/20 06:59 06:59 06:59 Intake Total 914 1633 Output Total 2365 1580 380 Balance -1451 53 -380 Result Diagrams: 02/20/20 03:19 02/20/20 03:19 Additional Labs: Accuchecks 02/21/20 02/21/20 02/20/20 11:11 04:23 22:25 POC Glucose 260 H 313 H 257 H 02/20/20 17:16 POC Glucose 244 H Hospitalist ROS - Medication Medications: Active Medications Generic Name Dose Route Start Last Admin Trade Name Freq PRN Reason Stop Dose Admin Acetaminophen 650 mg 01/31/20 21:30 02/21/20 09:36 Acetaminophen 325 Mg Tab PO 650 mg Q4H PRN Administration Headache/Fever/Mild Pain (1-3) Albuterol/Ipratropium 3 ml 02/21/20 13:00 02/21/20 14:08 Ipratropium/Albuterol Sulfate 3 Ml Neb NEB 3 ml [id number] ARLEY Administration Alogliptin Benzoate 12.5 mg 02/02/20 09:00 02/21/20 09:24 Alogliptin 6.25 Mg Tab PO 12.5 mg DAILY ARLEY Administration Amlodipine Besylate 10 mg 02/19/20 21:00 02/20/20 21:13 Amlodipine 10 Mg Tab PO 10 mg HS ARLEY Administration Ascorbic Acid 1,000 mg 02/01/20 09:00 02/21/20 09:25 Ascorbic Acid 500 Mg Chewable Tablet PO 1,000 mg DAILY ARLEY Administration Atenolol 50 mg 02/01/20 09:00 02/21/20 09:25 Atenolol 50 Mg Tab PO 50 mg DAILY ARLEY Administration Dextrose/Water 25 gm 01/31/20 22:19 02/18/20 21:33 Dextrose 50% Abboject 50 Ml Syringe SLOW IVP 25 gm PRN PRN Administration Hypoglycemia Enalaprilat 1.25 mg 02/08/20 10:52 02/19/20 06:09 Enalaprilat Dihydrate 1.25 Mg/Ml Vial SLOW IVP 1.25 mg Q6H PRN Administration SBP Greater Than 170 Enoxaparin Sodium 40 mg 02/14/20 21:00 02/21/20 09:24 Enoxaparin Sodium 40 Mg/0.4 Ml Syringe SC 40 mg 0900,2100 ARLEY Administration Famotidine 20 mg 02/01/20 09:00 02/21/20 09:25 Famotidine 20 Mg Tab PO 20 mg BID ARLEY Administration Guaifenesin/Dextromethorphan 15 ml 01/31/20 21:30 02/02/20 02:04 Guaifenesin Dm 100-10/5 Ml Udcup PO 15 ml Q4H PRN Administration Cough Hydralazine HCl 50 mg 02/10/20 21:00 02/21/20 09:25 Hydralazine 25 Mg Tab PER TUBE 50 mg QID ARLEY Administration Insulin Human Lispro 0 units 01/31/20 22:19 02/20/20 22:29 Humalog 300 Units/3 Ml Vial SC 3 unit .BEDTIME SLIDING SC PRN Administration Bedtime Correctional Scale Insulin Human Lispro 0 units 02/10/20 19:11 02/21/20 11:12 Humalog 300 Units/3 Ml Vial SC 9 unit .AGGRESSIVE SLIDING PRN Administration Aggressive Correctional Scale Nystatin 0 gm 02/16/20 19:36 02/16/20 20:19 Nystatin Powder 15 Gm Bot TOP 1 applic BID PRN Administration Topical Irritations Polyethylene Glycol 17 gm 02/13/20 09:00 02/21/20 09:26 Polyethylene Glycol 3350 17 Gm Packet PER TUBE Not Given DAILY ARLEY Prednisone 20 mg 02/21/20 09:00 02/21/20 09:25 Prednisone 20 Mg Tab PO 20 mg BID ARLEY Administration Rosuvastatin Calcium 10 mg 02/01/20 09:00 02/21/20 09:25 Rosuvastatin 10 Mg Tab PO 10 mg DAILY ARLEY Administration - Exam General Appearance: ill appearing General - other findings: Patient severely lethargic. Heart: RRR, no murmur, no gallops, no rubs Respiratory - other findings: Reduced air entry bilaterally. Gastrointestinal: soft, non-tender, non-distended, normal bowel sounds Extremities: no cyanosis, no clubbing, no edema Neurological: cranial nerve grossly intact Neurological - other findings: Difficult to assess, no obvious deficits noted Psychiatric - other findings: Oriented only to self. Not place and time Hosp A/P - Plan This is a 74-year-old female patient admitted with Covid pneumonia. She was admitted on 01/31/2020 and intubated on 02/02/2020. She has a history of SVT/atrial tachycardia. She was successfully extubated on 02/17/2018 Continue close monitoring in unit. Currently having a Dobbhoff tube passed on account of failing swallow evaluation She is making gradual improvements. Plan is to transfer to stepdown unit however no beds at the moment. Pneumonia due to Covid Completed remdesivir Continue Solu-Medrol and anticoagulation. Pulmonology following. Acute hypoxic respiratory failure Secondary to above Successfully extubated today. Continue monitoring Hypertension On amiodarone Continue as needed labetalol/hydralazine Monitor BP Sepsis Likely due to Covid Was on cefepimediscontinued Continue monitoring. Diabetes mellitus Correctional insulin Blood glucose stable Continue monitoring Depression Continue home meds Morbid obesity Hypothyroidism Continue levothyroxine Dyslipidemia Thrombocytopenia Stablepatient between 70 and 80s For the past 3 days Appears to be stable Monitor VT prophylaxison Lovenox CODE STATUSfull code. Palliative care on board Dispositionpending improvement
[2020-02-21] MEDS: Mometasone 200 MCG/Formoterol 5 MCG 120 PUFF INHALER INH SCH (18:42)
[2020-02-21] MEDS: Amlodipine 10 MG TAB PO SCH (21:33)
[2020-02-22] MEDS: HumaLOG 300 UNITS/3 ML VIAL SC PRN ×5 (00:57→23:48)
[2020-02-22] MEDS: Acetaminophen 325 MG TAB PO PRN ×2 (05:11→10:12)
[2020-02-22] MEDS: Levothyroxine Sodium 100 MCG TAB PO SCH (05:12)
[2020-02-22] MEDS: Mometasone 200 MCG/Formoterol 5 MCG 120 PUFF INHALER INH SCH ×2 (08:07→18:54)
--- NOTE | 2020-02-22 08:10 | PDOC.HOSPP ---
- Subjective Encounter Date: 02/22/20 Encounter Time: 09:00 Subjective: Patient nods head yes and no to questions but no verbalization. Very weak. Denies pain complaints. - Objective Vital Signs & Weight: Vital Signs (12 hours) Temp Pulse Resp BP Pulse Ox 02/22/20 08:05 94 21 H 97 02/22/20 07:13 99.4 F 02/22/20 05:11 100.6 F H 02/22/20 04:00 100.6 F H 02/22/20 00:00 98.6 F 02/21/20 23:56 82 24 H 97 02/21/20 21:34 76 162/54 H 02/21/20 21:33 76 162/54 H 02/21/20 20:10 97.7 F 100 Weight Admit Weight 235 lb Weight 245 lb 5.992 oz Most Recent Monitor Data Heart Rate from ECG 85 NIBP 151/52 NIBP BP-Mean 85 Respiration from ECG 21 SpO2 98 I&O: 02/21/20 02/22/20 02/23/20 06:59 06:59 06:59 Intake Total 1633 1292 Output Total 1580 970 Balance 53 322 Result Diagrams: 02/20/20 03:19 02/20/20 03:19 Additional Labs: Accuchecks 02/22/20 02/22/20 02/21/20 05:47 00:05 17:15 POC Glucose 278 H 196 H 235 H 02/21/20 11:11 POC Glucose 260 H Hospitalist ROS - Review of Systems ROS unobtainable: due to mental status - Medication Medications: Active Medications Generic Name Dose Route Start Last Admin Trade Name Freq PRN Reason Stop Dose Admin Acetaminophen 650 mg 01/31/20 21:30 02/22/20 05:11 Acetaminophen 325 Mg Tab PO 650 mg Q4H PRN Administration Headache/Fever/Mild Pain (1-3) Albuterol/Ipratropium 3 ml 02/21/20 13:00 02/22/20 08:05 Ipratropium/Albuterol Sulfate 3 Ml Neb NEB 3 ml [id number] ARLEY Administration Alogliptin Benzoate 12.5 mg 02/02/20 09:00 02/21/20 09:24 Alogliptin 6.25 Mg Tab PO 12.5 mg DAILY ARLEY Administration Amlodipine Besylate 10 mg 02/19/20 21:00 02/21/20 21:33 Amlodipine 10 Mg Tab PO 10 mg HS ARLEY Administration Ascorbic Acid 1,000 mg 02/01/20 09:00 02/21/20 09:25 Ascorbic Acid 500 Mg Chewable Tablet PO 1,000 mg DAILY ARLEY Administration Atenolol 50 mg 02/01/20 09:00 02/21/20 09:25 Atenolol 50 Mg Tab PO 50 mg DAILY ARLEY Administration Dextrose/Water 25 gm 01/31/20 22:19 02/18/20 21:33 Dextrose 50% Abboject 50 Ml Syringe SLOW IVP 25 gm PRN PRN Administration Hypoglycemia Enalaprilat 1.25 mg 02/08/20 10:52 02/19/20 06:09 Enalaprilat Dihydrate 1.25 Mg/Ml Vial SLOW IVP 1.25 mg Q6H PRN Administration SBP Greater Than 170 Enoxaparin Sodium 40 mg 02/14/20 21:00 02/21/20 21:34 Enoxaparin Sodium 40 Mg/0.4 Ml Syringe SC 40 mg 0900,2099 ARLEY Administration Famotidine 20 mg 02/01/20 09:00 02/21/20 21:34 Famotidine 20 Mg Tab PO 20 mg BID ARLEY Administration Guaifenesin/Dextromethorphan 15 ml 01/31/20 21:30 02/02/20 02:04 Guaifenesin Dm 100-10/5 Ml Udcup PO 15 ml Q4H PRN Administration Cough Hydralazine HCl 50 mg 02/10/20 21:00 02/21/20 21:34 Hydralazine 25 Mg Tab PER TUBE 50 mg QID ARLEY Administration Insulin Human Lispro 0 units 01/31/20 22:19 02/20/20 22:29 Humalog 300 Units/3 Ml Vial SC 3 unit .BEDTIME SLIDING SC PRN Administration Bedtime Correctional Scale Insulin Human Lispro 0 units 02/10/20 19:11 02/22/20 05:49 Humalog 300 Units/3 Ml Vial SC 9 unit .AGGRESSIVE SLIDING PRN Administration Aggressive Correctional Scale Levothyroxine Sodium 100 mcg 02/22/20 06:00 02/22/20 05:12 Levothyroxine Sodium 100 Mcg Tab PO 100 mcg 0600 ARLEY Administration Mometasone Furoate/Formoterol Fumar 2 puff 02/21/20 18:30 02/22/20 08:07 Mometasone 200 Mcg/Formoterol 5 Mcg 120 Puff Inhaler INH Not Given BID-RT ARLEY Nystatin 0 gm 02/16/20 19:36 02/16/20 20:19 Nystatin Powder 15 Gm Bot TOP 1 applic BID PRN Administration Topical Irritations Polyethylene Glycol 17 gm 02/13/20 09:00 02/21/20 09:26 Polyethylene Glycol 3350 17 Gm Packet PER TUBE Not Given DAILY ARLEY Prednisone 20 mg 02/21/20 09:00 02/21/20 21:33 Prednisone 20 Mg Tab PO 20 mg BID ARLEY Administration Rosuvastatin Calcium 10 mg 02/01/20 09:00 02/21/20 09:25 Rosuvastatin 10 Mg Tab PO 10 mg DAILY ARLEY Administration - Exam General Appearance: NAD, awake alert ENT: moist mucosa Heart: RRR, no murmur, no gallops, no rubs Respiratory: CTAB, no wheezes, no rales, no ronchi Gastrointestinal: soft, non-tender, non-distended, normal bowel sounds Extremities: no edema Musculoskeletal: normal tone, generalized weakness Psychiatric - other findings: no verbalizing right now Hosp A/P - Plan This is a 74-year-old female patient admitted with Covid pneumonia. She was admitted on 01/31/2020 and intubated on 02/02/2020. She has a history of SVT/atrial tachycardia. She was successfully extubated on 02/17/2018 Continue close monitoring in unit. Currently having a Dobbhoff tube passed on account of failing swallow evaluation She is making gradual improvements. Pneumonia due to Covid Completed remdesivir Continue Solu-Medrol and anticoagulation. Changing to oral steroids. Pulmonology following. Acute hypoxic respiratory failure Secondary to above Successfully extubated. Continue monitoring Hypertension On amiodarone Continue as needed labetalol/hydralazine Monitor BP Sepsis due to Covid resolved Diabetes mellitus Correctional insulin Blood glucose stable Continue monitoring Depression Continue home meds Morbid obesity Hypothyroidism Continue levothyroxine Dyslipidemia Thrombocytopenia Stablepatient up to 90s today Monitor [place] prophylaxison Lovenox CODE STATUSfull code. Palliative care on board Dispositionpending improvement, likely will need rehab
--- NOTE | 2020-02-22 09:10 | RAD ---
SINGLE VIEW CHEST: Date: 02/22/2020 COMPARISON: 02/21/2020. HISTORY: Ventilated patient with respiratory failure. FINDINGS: Single view of the chest shows an enlarged but stable cardiomediastinal silhouette with atherosclerot ic calcifications in the aorta. A Dobbhoff tube courses off the inferior aspect of the film. There is a calcified left hilar lymph node. Diffuse increased interstitial lung markings are present. There a ppear to be superimposed air space opacities in the bilateral lower lobes. There may be a small left pleural effusion. There appears to be a tiny right apical pneumothorax which is more difficult to vis ualize on today's exam than the prior exam. IMPRESSION: Stable exam. POS: SUSANNAA
--- NOTE | 2020-02-22 09:48 | PRG ---
DATE OF SERVICE: 02/22/2020 SUBJECTIVE: A 74-year-old morbidly obese female, who was extubated. She remains very weak, but responsive. OBJECTIVE: VITAL SIGNS: Temperature 99, pulse 94, respiratory rate 21, saturations 97% on 2 L, blood pressure . CHEST: No wheezing, no crackles. CARDIAC: Normal S1, S2. No gallops. X-ray shows improvement in the right-sided pneumothorax. ASSESSMENT: Prolonged intubation, respiratory failure, duffy positive pneumonia, severe deconditioning, dysphagia. PLAN: Pulmonary armenta, I would contact family one more time to assess the patient who is extubated but remains weak. I would be concerned about re-intubating the patient. Continue aggressive PT, supportive care, eventually placement. Job ID: [id number]
[2020-02-22] MEDS: Famotidine 20 MG TAB PO SCH ×2 (09:56→21:02)
[2020-02-22] MEDS: Rosuvastatin 10 MG TAB PO SCH (09:56)
[2020-02-22] MEDS: Ascorbic Acid 500 mg Chewable Tablet PO SCH (09:57)
[2020-02-22] MEDS: hydrALAZINE 25 MG TAB PER TUBE SCH ×4 (09:57→21:02)
[2020-02-22] MEDS: Alogliptin 6.25 MG TAB PO SCH (09:57)
[2020-02-22] MEDS: Atenolol 50 MG TAB PO SCH (09:57)
[2020-02-22] MEDS: Enoxaparin Sodium 40 MG/0.4 ML SYRINGE SC SCH ×2 (09:57→21:02)
[2020-02-22] MEDS: Polyethylene Glycol 3350 17 GM Packet PER TUBE SCH (09:58)
[2020-02-22] MEDS: predniSONE 20 MG TAB PO SCH ×2 (09:58→21:03)
[2020-02-22] MEDS ORDERED: Lidocaine 1% w/Epinephrine 1:100K 20 ML VIAL IJ SCH (14:45)
[2020-02-22] MEDS: Amlodipine 10 MG TAB PO SCH (21:02)
[2020-02-23 03:47] LABS: #Lymphocytes 0.6 thou/uL (1.20-3.40); #Monocytes 0.3 thou/uL (0.11-0.59); #Neutrophils 4.5 thou/uL (1.40-6.50); %Basophils 0.3 % (0.0-1.0); %Eosinophils 0.5 % (0.0-10.0); %Neutrophils 82.2 % (42.0-75.0); Hemoglobin 9.9 g/dL (12.0-16.0); Mean Corpuscular Hemoglobin 31.3 pg (27.0-31.0); Mean Platelet Volume 8.4 fL (7.4-10.4); Platelet Count 119 thou/uL (130-400); RBC Distribution Width 16.3 % (11.5-14.5); Red Blood Cell (RBC) Count 3.17 mill/uL (4.20-5.40); White Blood Cell (WBC) Count 5.4 thou/uL (4.8-10.8)
[2020-02-23 04:04] LABS: Anion Gap 15 mmol/L (10-20); BUN (Urea Nitrogen) 22 mg/dL (9.8-20.1); Calc. Creatinine Clearance 155 mL/min (70-130); Calcium 8.2 mg/dL (7.8-10.44); Carbon Dioxide 26 mmol/L (23-31); Chloride 99 mmol/L (98-107); Glucose 292 mg/dL (83-110); Potassium 4.5 mmol/L (3.5-5.1); Sodium 135 mmol/L (136-145)
[2020-02-23] MEDS: HumaLOG 300 UNITS/3 ML VIAL SC PRN ×2 (05:38→13:16)
[2020-02-23] MEDS: Levothyroxine Sodium 100 MCG TAB PO SCH (05:39)
--- NOTE | 2020-02-23 08:21 | PDOC.HOSPP ---
- Subjective Encounter Date: 02/23/20 Encounter Time: 09:30 Subjective: Patient reports feeling weak but maybe a bit better today. Voice a bit stronger and easier to hear today. - Objective Vital Signs & Weight: Vital Signs (12 hours) Pulse Resp BP Pulse Ox 02/22/20 23:34 81 18 91 L 02/22/20 21:02 81 157/56 H Weight Admit Weight 235 lb Weight 245 lb 5.992 oz Most Recent Monitor Data Heart Rate from ECG 86 NIBP 171/61 NIBP BP-Mean 97 Respiration from ECG 19 SpO2 91 I&O: 02/22/20 02/23/20 02/24/20 06:59 06:59 06:59 Intake Total 1292 1720 Output Total 970 1900 Balance 322 -180 Result Diagrams: 02/23/20 03:35 02/23/20 03:35 Additional Labs: Accuchecks 02/23/20 02/22/20 02/22/20 05:36 23:47 17:12 POC Glucose 272 H 252 H 307 H Hospitalist ROS - Review of Systems Constitutional: denies: fever, chills Respiratory: denies: cough, shortness of breath Cardiovascular: denies: chest pain, palpitations Gastrointestinal: denies: nausea, vomiting, abdominal pain - Medication Medications: Active Medications Generic Name Dose Route Start Last Admin Trade Name Freq PRN Reason Stop Dose Admin Acetaminophen 650 mg 01/31/20 21:30 02/22/20 10:12 Acetaminophen 325 Mg Tab PO 650 mg Q4H PRN Administration Headache/Fever/Mild Pain (1-3) Albuterol/Ipratropium 3 ml 02/22/20 19:00 02/23/20 06:43 Ipratropium/Albuterol Sulfate 3 Ml Neb NEB Not Given [id number] ARLEY Alogliptin Benzoate 12.5 mg 02/02/20 09:00 02/22/20 09:57 Alogliptin 6.25 Mg Tab PO 12.5 mg DAILY ARLEY Administration Amlodipine Besylate 10 mg 02/19/20 21:00 02/22/20 21:02 Amlodipine 10 Mg Tab PO 10 mg HS ARLEY Administration Ascorbic Acid 1,000 mg 02/01/20 09:00 02/22/20 09:57 Ascorbic Acid 500 Mg Chewable Tablet PO 1,000 mg DAILY ARLEY Administration Atenolol 50 mg 02/01/20 09:00 02/22/20 09:57 Atenolol 50 Mg Tab PO 50 mg DAILY ARLEY Administration Dextrose/Water 25 gm 01/31/20 22:19 02/18/20 21:33 Dextrose 50% Abboject 50 Ml Syringe SLOW IVP 25 gm PRN PRN Administration Hypoglycemia Enoxaparin Sodium 40 mg 02/14/20 21:00 02/22/20 21:02 Enoxaparin Sodium 40 Mg/0.4 Ml Syringe SC 40 mg 0900,2100 ARLEY Administration Famotidine 20 mg 02/01/20 09:00 02/22/20 21:02 Famotidine 20 Mg Tab PO 20 mg BID ARLEY Administration Guaifenesin/Dextromethorphan 15 ml 01/31/20 21:30 02/02/20 02:04 Guaifenesin Dm 100-10/5 Ml Udcup PO 15 ml Q4H PRN Administration Cough Hydralazine HCl 50 mg 02/10/20 21:00 02/22/20 21:02 Hydralazine 25 Mg Tab PER TUBE 50 mg QID ARLEY Administration Insulin Human Lispro 0 units 01/31/20 22:19 02/20/20 22:29 Humalog 300 Units/3 Ml Vial SC 3 unit .BEDTIME SLIDING SC PRN Administration Bedtime Correctional Scale Insulin Human Lispro 0 units 02/10/20 19:11 02/23/20 05:38 Humalog 300 Units/3 Ml Vial SC 9 unit .AGGRESSIVE SLIDING PRN Administration Aggressive Correctional Scale Levothyroxine Sodium 100 mcg 02/22/20 06:00 02/23/20 05:39 Levothyroxine Sodium 100 Mcg Tab PO 100 mcg 0600 ARLEY Administration Mometasone Furoate/Formoterol Fumar 2 puff 02/21/20 18:30 02/22/20 18:54 Mometasone 200 Mcg/Formoterol 5 Mcg 120 Puff Inhaler INH Not Given BID-RT ARLEY Nystatin 0 gm 02/16/20 19:36 02/16/20 20:19 Nystatin Powder 15 Gm Bot TOP 1 applic BID PRN Administration Topical Irritations Polyethylene Glycol 17 gm 02/13/20 09:00 02/22/20 09:58 Polyethylene Glycol 3350 17 Gm Packet PER TUBE 17 gm DAILY ARLEY Administration Prednisone 20 mg 02/21/20 09:00 02/22/20 21:03 Prednisone 20 Mg Tab PO 20 mg BID ARLEY Administration Rosuvastatin Calcium 10 mg 02/01/20 09:00 02/22/20 09:56 Rosuvastatin 10 Mg Tab PO 10 mg DAILY ARLEY Administration - Exam General Appearance: NAD, awake alert ENT: moist mucosa Heart: RRR, no murmur, no gallops, no rubs Respiratory: CTAB, no wheezes, no rales, no ronchi Gastrointestinal: soft, non-tender, non-distended, normal bowel sounds Musculoskeletal: generalized weakness Psychiatric: normal affect, normal behavior, oriented to person Hosp A/P - Plan This is a 74-year-old female patient admitted with Covid pneumonia. She was admitted on 01/31/2020 and intubated on 02/02/2020. She has a history of SVT/atrial tachycardia. She was successfully extubated on 02/17/2018 Continue close monitoring in unit. Currently having a Dobbhoff tube passed on account of failing swallow evaluation She is making gradual improvements. Pneumonia due to Covid Completed remdesivir Continue Solu-Medrol and anticoagulation. Changed to oral steroids. Pulmonology following. Acute hypoxic respiratory failure Secondary to above Successfully extubated. Continue monitoring -Right apical pneumothorax improving on today's chest x-ray, hard to appreciate Hypertension Continue as needed labetalol/hydralazine Monitor BP Sepsis due to Covid resolved Diabetes mellitus Correctional insulin Blood glucose stable Continue monitoring Depression Continue home meds Morbid obesity Hypothyroidism Continue levothyroxine Dyslipidemia Thrombocytopenia Stablepatient up to 90s today Monitor [place] prophylaxison Lovenox CODE STATUSfull code. Palliative care on board Dispositionpending improvement, likely will need rehab
--- NOTE | 2020-02-23 09:45 | PRG ---
DATE OF SERVICE: 02/23/2020 SUBJECTIVE: This morning, she is awake, alert, responsive, more appropriate this morning. OBJECTIVE: VITAL SIGNS: Temperature is 97, saturations 93% on room air, blood pressure 171/60, . CHEST: No wheezing. No crackles. CARDIAC: Normal S1 and S2. ASSESSMENT: Respiratory failure, duffy positive pneumonia, severe deconditioning. PLAN: Continue aggressive PT. Supportive care. I would tend to discontinue daily lab on her. Job ID: [id number]
[2020-02-23] MEDS: Enoxaparin Sodium 40 MG/0.4 ML SYRINGE SC SCH ×2 (10:12→21:20)
[2020-02-23] MEDS: Alogliptin 6.25 MG TAB PO SCH (10:12)
[2020-02-23] MEDS: Rosuvastatin 10 MG TAB PO SCH (10:13)
[2020-02-23] MEDS: Famotidine 20 MG TAB PO SCH ×2 (10:13→21:19)
[2020-02-23] MEDS: Polyethylene Glycol 3350 17 GM Packet PER TUBE SCH (10:14)
[2020-02-23] MEDS: Atenolol 50 MG TAB PO SCH (10:14)
[2020-02-23] MEDS: predniSONE 20 MG TAB PO SCH ×2 (10:14→21:19)
[2020-02-23] MEDS: Ascorbic Acid 500 mg Chewable Tablet PO SCH (10:14)
[2020-02-23] MEDS: hydrALAZINE 25 MG TAB PER TUBE SCH ×4 (10:14→21:19)
[2020-02-23] MEDS: Labetalol HCl 100 MG/20 ML VIAL SLOW IVP PRN ×3 (13:01→20:04)
[2020-02-23] MEDS: Mometasone 200 MCG/Formoterol 5 MCG 120 PUFF INHALER INH SCH ×2 (13:18→20:49)
[2020-02-23] MEDS ORDERED: Labetalol HCl 100 MG/20 ML VIAL SLOW IVP SCH (15:30)
[2020-02-23] MEDS: hydrALAZINE 25 MG TAB PO PRN (18:08)
[2020-02-23] MEDS: Amlodipine 10 MG TAB PO SCH (21:19)
[2020-02-24] MEDS: Labetalol HCl 100 MG/20 ML VIAL SLOW IVP PRN ×3 (00:17→12:20)
[2020-02-24] MEDS: hydrALAZINE 25 MG TAB PO PRN ×3 (00:50→16:15)
[2020-02-24] MEDS: HumaLOG 300 UNITS/3 ML VIAL SC PRN ×4 (01:20→20:54)
[2020-02-24] MEDS: Levothyroxine Sodium 100 MCG TAB PO SCH (05:25)
[2020-02-24] MEDS: Mometasone 200 MCG/Formoterol 5 MCG 120 PUFF INHALER INH SCH ×2 (07:17→18:33)
[2020-02-24] MEDS: Ascorbic Acid 500 mg Chewable Tablet PO SCH (09:49)
[2020-02-24] MEDS: Atenolol 50 MG TAB PO SCH (09:49)
[2020-02-24] MEDS: Famotidine 20 MG TAB PO SCH ×2 (09:49→20:36)
[2020-02-24] MEDS: hydrALAZINE 25 MG TAB PER TUBE SCH ×4 (09:50→20:36)
[2020-02-24] MEDS: predniSONE 20 MG TAB PO SCH ×2 (09:50→20:37)
[2020-02-24] MEDS: Rosuvastatin 10 MG TAB PO SCH (09:50)
[2020-02-24] MEDS: Enoxaparin Sodium 40 MG/0.4 ML SYRINGE SC SCH ×2 (09:50→20:36)
[2020-02-24] MEDS: Alogliptin 6.25 MG TAB PO SCH (09:50)
[2020-02-24] MEDS: Polyethylene Glycol 3350 17 GM Packet PER TUBE SCH (09:51)
[2020-02-24] MEDS ORDERED: Insulin Glargine 10 UNITS in Pre-Filled Syringe 1 EACH SC SCH (10:00)
--- NOTE | 2020-02-24 15:47 | PRG ---
DATE OF SERVICE: 02/24/2020 SUBJECTIVE: The patient is actually doing fairly well today on oxygen nasal cannula 2 L with saturation of 100%. OBJECTIVE: VITAL SIGNS: Blood pressure is 186/59, heart rate is 82, respiratory rate is 15, and O2 is 2 L. She is currently afebrile. LUNGS: Rhonchi without wheezes. HEART: Regular rate and rhythm. ABDOMEN: Soft. There is no organomegaly. EXTREMITIES: There is trace edema. There is no cords or tenderness. LABORATORY DATA: None today. IMPRESSION: COVID pneumonia, currently on nasal oxygen. This follows a long course of ventilatory support from which she has been extubated. PLAN: We will continue supportive care. The patient has been seen by the Palliative Care team and there is some indecision regarding whether she has to go back on the ventilator if there is further respiratory failure. As of this moment, she is full code status. Job ID: [id number]
[2020-02-24] MEDS: Amlodipine 10 MG TAB PO SCH (20:36)
--- NOTE | 2020-02-24 22:15 | PDOC.HOSPP ---
- Subjective Encounter Date: 02/24/20 Encounter Time: 13:45 Subjective: Up in bed talks very softly. - Objective Vital Signs & Weight: Vital Signs (12 hours) Temp Pulse Pulse Resp BP BP BP 02/24/20 19:04 02/24/20 19:03 02/24/20 18:27 98.0 F 78 18 02/24/20 17:14 97.7 F 02/24/20 16:15 82 198/113 H 02/24/20 16:13 82 198/113 H 02/24/20 15:20 81 148/72 H 165/80 H 02/24/20 13:36 82 15 02/24/20 12:20 93 181/66 H 02/24/20 12:19 81 181/66 H BP Pulse Ox Pulse Ox 02/24/20 19:04 98 02/24/20 19:03 98 02/24/20 18:27 161/75 H 99 02/24/20 17:14 02/24/20 16:15 02/24/20 16:13 02/24/20 15:20 78 L 02/24/20 13:36 100 02/24/20 12:20 02/24/20 12:19 Weight Admit Weight 235 lb Weight 245 lb 5.992 oz Most Recent Monitor Data Heart Rate from ECG 79 NIBP 157/61 NIBP BP-Mean 93 Respiration from ECG 15 SpO2 97 I&O: 02/23/20 02/24/20 02/25/20 06:59 06:59 06:59 Intake Total 1720 1740 750 Output Total 1900 1500 1550 Balance -180 240 -800 Result Diagrams: 02/23/20 03:35 02/23/20 03:35 Additional Labs: Accuchecks 02/24/20 02/24/20 02/24/20 20:40 11:54 05:26 POC Glucose 331 H 264 H 380 H 02/24/20 01:16 POC Glucose 373 H Hospitalist ROS - Review of Systems Other: Unable to obtain. - Medication Medications: Active Medications Generic Name Dose Route Start Last Admin Trade Name Freq PRN Reason Stop Dose Admin Acetaminophen 650 mg 01/31/20 21:30 02/22/20 10:12 Acetaminophen 325 Mg Tab PO 650 mg Q4H PRN Administration Headache/Fever/Mild Pain (1-3) Albuterol/Ipratropium 3 ml 02/22/20 19:00 02/24/20 19:03 Ipratropium/Albuterol Sulfate 3 Ml Neb NEB 3 ml [id number] [facility]LEY Administration Alogliptin Benzoate 12.5 mg 02/02/20 09:00 02/24/20 09:50 Alogliptin 6.25 Mg Tab PO 12.5 mg DAILY [facility] Administration Amlodipine Besylate 10 mg 02/19/20 21:00 02/24/20 20:36 Amlodipine 10 Mg Tab PO 10 mg HS ARLEY Administration Ascorbic Acid 1,000 mg 02/01/20 09:00 02/24/20 09:49 Ascorbic Acid 500 Mg Chewable Tablet PO 1,000 mg DAILY [facility] Administration Atenolol 50 mg 02/01/20 09:00 02/24/20 09:49 Atenolol 50 Mg Tab PO 50 mg DAILY [facility] Administration Dextrose/Water 25 gm 01/31/20 22:19 02/18/20 21:33 Dextrose 50% Abboject 50 Ml Syringe SLOW IVP 25 gm PRN PRN Administration Hypoglycemia Enoxaparin Sodium 40 mg 02/14/20 21:00 02/24/20 20:36 Enoxaparin Sodium 40 Mg/0.4 Ml Syringe SC 40 mg 0900,2100 [facility] Administration Famotidine 20 mg 02/01/20 09:00 02/24/20 20:36 Famotidine 20 Mg Tab PO 20 mg BID AR[facility] Administration Guaifenesin/Dextromethorphan 15 ml 01/31/20 21:30 02/02/20 02:04 Guaifenesin Dm 100-10/5 Ml Udcup PO 15 ml Q4H PRN Administration Cough Hydralazine HCl 50 mg 02/10/20 21:00 02/24/20 20:36 Hydralazine 25 Mg Tab PER TUBE 50 mg QID [facility] Administration Hydralazine HCl 25 mg 02/23/20 15:45 02/24/20 16:15 Hydralazine 25 Mg Tab PO 25 mg Q6H PRN Administration SBP > 180 Insulin Human Lispro 0 units 01/31/20 22:19 02/24/20 20:54 Humalog 300 Units/3 Ml Vial SC 4 unit .BEDTIME SLIDING SC PRN Administration Bedtime Correctional Scale Insulin Human Lispro 0 units 02/10/20 19:11 02/24/20 12:20 Humalog 300 Units/3 Ml Vial SC 9 unit .AGGRESSIVE SLIDING PRN Administration Aggressive Correctional Scale Labetalol HCl 10 mg 02/19/20 19:05 02/24/20 12:20 Labetalol Hcl 100 Mg/20 Ml Vial SLOW IVP 10 mg Q4H PRN Administration SBP Greater Than 180 Levothyroxine Sodium 100 mcg 02/22/20 06:00 02/24/20 05:25 Levothyroxine Sodium 100 Mcg Tab PO 100 mcg 0600 [facility] Administration Mometasone Furoate/Formoterol Fumar 2 puff 02/21/20 18:30 02/24/20 18:33 Mometasone 200 Mcg/Formoterol 5 Mcg 120 Puff Inhaler INH 2 puff BID-RT [facility] Administration Nystatin 0 gm 02/16/20 19:36 02/16/20 20:19 Nystatin Powder 15 Gm Bot TOP 1 applic BID PRN Administration Topical Irritations Polyethylene Glycol 17 gm 02/13/20 09:00 02/24/20 09:51 Polyethylene Glycol 3350 17 Gm Packet PER TUBE Not Given DAILY [facility] Prednisone 20 mg 02/21/20 09:00 02/24/20 20:37 Prednisone 20 Mg Tab PO 20 mg BID [facility] Administration Rosuvastatin Calcium 10 mg 02/01/20 09:00 02/24/20 09:50 Rosuvastatin 10 Mg Tab PO 10 mg DAILY [facility] Administration - Exam Neck: negative: supple, symmetric, no JVD, no thyromegaly, no lymphadenopathy, no carotid bruit, JVD Heart: negative: RRR, no murmur, no gallops, no rubs, normal peripheral pulses, irregular, diminshed peripheral pulses, murmur present, II/IV, III/IV Respiratory: negative: CTAB, no wheezes, no rales, no ronchi, normal chest expansion, no tachypnea, normal percussion, rales, rhonchi, tachypneic, wheezes Gastrointestinal: negative: soft, non-tender, non-distended, normal bowel sounds, no palpable masses, no hepatomegaly, no splenomegaly, no bruit, no guarding, no rigidity, tender to palpation, distended, diminished bowl sounds, voluntary guarding Hosp A/P - Plan This is a 74-year-old female patient admitted with Covid pneumonia. She was admitted on 01/31/2020 and intubated on 02/02/2020. She has a history of SVT/atrial tachycardia. She was successfully extubated on 02/17/2018 Continue close monitoring in unit. Currently having a Dobbhoff tube passed on account of failing swallow evaluation She is making gradual improvements. Pneumonia due to Covid Completed remdesivir Continue Solu-Medrol and anticoagulation. Changed to oral steroids. Pulmonology following. 02/23 repeat Covid test was negative. Acute hypoxic respiratory failure Secondary to above Successfully extubated. Continue monitoring -Right apical pneumothorax improving on today's chest x-ray, hard to appreciate Hypertension Continue as needed labetalol/hydralazine Monitor BP Sepsis due to Covid resolved Diabetes mellitus Correctional insulin Blood glucose stable Continue monitoring Depression Continue home meds Morbid obesity Hypothyroidism Continue levothyroxine Dyslipidemia Thrombocytopenia Stablepatient up to 90s today Monitor VT prophylaxison Lovenox CODE STATUSfull code. Palliative care on board Dispositionpending improvement, likely will need rehab 02/23 patient failed her swallow eval she will be reevaluated probably on Wednesday. We will add some Lantus since her blood sugars are really uncontrolled. Restart her home medications
[2020-02-25] MEDS: HumaLOG 300 UNITS/3 ML VIAL SC PRN ×3 (05:26→22:37)
[2020-02-25] MEDS: Levothyroxine Sodium 100 MCG TAB PO SCH (05:26)
[2020-02-25] MEDS: Mometasone 200 MCG/Formoterol 5 MCG 120 PUFF INHALER INH SCH ×2 (05:36→18:33)
[2020-02-25] MEDS: Albuterol 200 PUFF (6.7GM INHALER) INH SCH ×3 (07:00→18:34)
[2020-02-25] MEDS: Insulin Glargine 10 UNITS in Pre-Filled Syringe 1 EACH SC SCH (10:14)
[2020-02-25] MEDS: Enoxaparin Sodium 40 MG/0.4 ML SYRINGE SC SCH ×2 (10:18→20:30)
[2020-02-25] MEDS: hydrALAZINE 25 MG TAB PER TUBE SCH ×4 (13:00→20:29)
[2020-02-25] MEDS: Atenolol 50 MG TAB PO SCH (14:59)
[2020-02-25] MEDS: Ascorbic Acid 500 mg Chewable Tablet PO SCH (14:59)
[2020-02-25] MEDS: Polyethylene Glycol 3350 17 GM Packet PER TUBE SCH (15:00)
[2020-02-25] MEDS: predniSONE 20 MG TAB PO SCH ×2 (15:00→20:29)
[2020-02-25] MEDS: Rosuvastatin 10 MG TAB PO SCH (15:00)
[2020-02-25] MEDS: Famotidine 20 MG TAB PO SCH ×2 (15:00→20:28)
[2020-02-25] MEDS: Alogliptin 6.25 MG TAB PO SCH ×2 (15:01)
[2020-02-25] MEDS: Amlodipine 10 MG TAB PO SCH (20:30)
[2020-02-26] MEDS: Albuterol 200 PUFF (6.7GM INHALER) INH SCH ×4 (01:00→18:40)
[2020-02-26] MEDS: Levothyroxine Sodium 100 MCG TAB PO SCH (05:52)
[2020-02-26] MEDS: Acetaminophen 325 MG TAB PO PRN (05:52)
[2020-02-26] MEDS: HumaLOG 300 UNITS/3 ML VIAL SC PRN ×3 (05:53→16:55)
[2020-02-26] MEDS: Mometasone 200 MCG/Formoterol 5 MCG 120 PUFF INHALER INH SCH ×2 (06:42→18:40)
--- NOTE | 2020-02-26 08:38 | PDOC.HOSPP ---
- Subjective Encounter Date: 02/25/20 Encounter Time: 11:45 Subjective: Patient up in bed no complaints. - Objective Vital Signs & Weight: Vital Signs (12 hours) Temp Pulse Resp BP Pulse Ox 02/26/20 07:33 97.8 F 108 H 20 135/77 95 02/26/20 05:23 98.2 F 103 H 18 122/86 94 L 02/26/20 00:00 98.3 F 105 H 18 99/64 93 L Weight Admit Weight 235 lb Weight 245 lb 5.992 oz Most Recent Monitor Data Heart Rate from ECG 79 NIBP 157/61 NIBP BP-Mean 93 Respiration from ECG 15 SpO2 97 I&O: 02/25/20 02/26/20 02/27/20 06:59 06:59 06:59 Intake Total 1650 850 Output Total 2750 1900 Balance -1100 -1050 Result Diagrams: 02/23/20 03:35 02/23/20 03:35 Additional Labs: Accuchecks 02/26/20 02/25/20 02/25/20 05:22 21:00 16:11 POC Glucose 326 H 266 H 186 H 02/25/20 11:47 POC Glucose 236 H Hospitalist ROS - Review of Systems Respiratory: denies: cough, dry, shortness of breath, hemoptysis, SOB with excertion, pleuritic pain, sputum, wheezing, other Cardiovascular: denies: chest pain, palpitations, orthopnea, paroxysmal noc. dyspnea, edema, light headedness, other Gastrointestinal: denies: nausea, vomiting, abdominal pain, diarrhea, constipation, melena, hematochezia, other - Medication Medications: Active Medications Generic Name Dose Route Start Last Admin Trade Name Freq PRN Reason Stop Dose Admin Acetaminophen 650 mg 01/31/20 21:30 02/26/20 05:52 Acetaminophen 325 Mg Tab PO 650 mg Q4H PRN Administration Headache/Fever/Mild Pain (1-3) Albuterol Sulfate 2 puff 02/25/20 07:00 02/26/20 06:32 Albuterol 200 Puff (6.7gm Inhaler) INH 2 puff [id number] [facility] Administration Alogliptin Benzoate 12.5 mg 02/25/20 09:00 02/25/20 15:01 Alogliptin 6.25 Mg Tab PO Not Given DAILY [facility] Amlodipine Besylate 10 mg 02/19/20 21:00 02/25/20 20:30 Amlodipine 10 Mg Tab PO 10 mg HS [facility] Administration Ascorbic Acid 1,000 mg 02/01/20 09:00 02/25/20 14:59 Ascorbic Acid 500 Mg Chewable Tablet PO Not Given DAILY [facility] Atenolol 50 mg 02/01/20 09:00 02/25/20 14:59 Atenolol 50 Mg Tab PO Not Given DAILY [facility] Dextrose/Water 25 gm 01/31/20 22:19 02/18/20 21:33 Dextrose 50% Abboject 50 Ml Syringe SLOW IVP 25 gm PRN PRN Administration Hypoglycemia Enoxaparin Sodium 40 mg 02/14/20 21:00 02/25/20 20:30 Enoxaparin Sodium 40 Mg/0.4 Ml Syringe SC 40 mg 0900,2100 [facility] Administration Famotidine 20 mg 02/01/20 09:00 02/25/20 20:28 Famotidine 20 Mg Tab PO 20 mg BID [facility] Administration Guaifenesin/Dextromethorphan 15 ml 01/31/20 21:30 02/02/20 02:04 Guaifenesin Dm 100-10/5 Ml Udcup PO 15 ml Q4H PRN Administration Cough Hydralazine HCl 50 mg 02/10/20 21:00 02/25/20 20:29 Hydralazine 25 Mg Tab PER TUBE 50 mg QID [facility] Administration Hydralazine HCl 25 mg 02/23/20 15:45 02/24/20 16:15 Hydralazine 25 Mg Tab PO 25 mg Q6H PRN Administration SBP > 180 Insulin Glargine 10 units/ 0.1 mls @ 0 mls/hr 02/25/20 09:00 02/25/20 10:14 Miscellaneous Medication SC 0.1 mls QAM [facility] Administration Insulin Human Lispro 0 units 01/31/20 22:19 02/25/20 22:37 Humalog 300 Units/3 Ml Vial SC 3 unit .BEDTIME SLIDING SC PRN Administration Bedtime Correctional Scale Insulin Human Lispro 0 units 02/10/20 19:11 02/26/20 05:53 Humalog 300 Units/3 Ml Vial SC 11 unit .AGGRESSIVE SLIDING PRN Administration Aggressive Correctional Scale Labetalol HCl 10 mg 02/19/20 19:05 02/24/20 12:20 Labetalol Hcl 100 Mg/20 Ml Vial SLOW IVP 10 mg Q4H PRN Administration SBP Greater Than 180 Levothyroxine Sodium 100 mcg 02/22/20 06:00 02/26/20 05:52 Levothyroxine Sodium 100 Mcg Tab PO 100 mcg 0600 [facility] Administration Mometasone Furoate/Formoterol Fumar 2 puff 02/21/20 18:30 02/26/20 06:42 Mometasone 200 Mcg/Formoterol 5 Mcg 120 Puff Inhaler INH 2 puff BID-RT [facility] Administration Nystatin 0 gm 02/16/20 19:36 02/16/20 20:19 Nystatin Powder 15 Gm Bot TOP 1 applic BID PRN Administration Topical Irritations Polyethylene Glycol 17 gm 02/13/20 09:00 02/25/20 15:00 Polyethylene Glycol 3350 17 Gm Packet PER TUBE Not Given DAILY [facility] Prednisone 20 mg 02/21/20 09:00 02/25/20 20:29 Prednisone 20 Mg Tab PO 20 mg BID [facility] Administration Rosuvastatin Calcium 10 mg 02/01/20 09:00 02/25/20 15:00 Rosuvastatin 10 Mg Tab PO Not Given DAILY [facility] - Exam Neck: negative: supple, symmetric, no JVD, no thyromegaly, no lymphadenopathy, no carotid bruit, JVD Heart: negative: RRR, no murmur, no gallops, no rubs, normal peripheral pulses, irregular, diminshed peripheral pulses, murmur present, II/IV, III/IV Respiratory: negative: CTAB, no wheezes, no rales, no ronchi, normal chest expansion, no tachypnea, normal percussion, rales, rhonchi, tachypneic, wheezes Hosp A/P - Plan This is a 74-year-old female patient admitted with Covid pneumonia. She was admitted on 01/31/2020 and intubated on 02/02/2020. She has a history of SVT/atrial tachycardia. She was successfully extubated on 04/20/2017 Continue close monitoring in unit. Currently having a Dobbhoff tube passed on account of failing swallow evaluation She is making gradual improvements. Pneumonia due to Covid Completed remdesivir Continue Solu-Medrol and anticoagulation. Changed to oral steroids. Pulmonology following. 02/23 repeat Covid test was negative. Acute hypoxic respiratory failure Secondary to above Successfully extubated. Continue monitoring -Right apical pneumothorax improving on today's chest x-ray, hard to appreciate Hypertension Continue as needed labetalol/hydralazine Monitor BP Sepsis due to Covid resolved Diabetes mellitus Correctional insulin Blood glucose stable Continue monitoring Depression Continue home meds Morbid obesity Hypothyroidism Continue levothyroxine Dyslipidemia Thrombocytopenia Stablepatient up to 90s today Monitor [place] prophylaxison Lovenox CODE STATUSfull code. Palliative care on board Dispositionpending improvement, likely will need rehab 02/23 patient failed her swallow eval she will be reevaluated probably on Wednesday. We will add some Lantus since her blood sugars are really uncontrolled. Restart her home medications 02/24 patient will be reevaluated by speech in a.m. will require her Dobbhoff to be removed prior to discharge. She most likely will go [facility]. Continue to titrate insulin.
[2020-02-26] MEDS: Alogliptin 6.25 MG TAB PO SCH (08:49)
[2020-02-26] MEDS: Famotidine 20 MG TAB PO SCH ×2 (08:49→21:05)
[2020-02-26] MEDS: Atenolol 50 MG TAB PO SCH (08:49)
[2020-02-26] MEDS: Rosuvastatin 10 MG TAB PO SCH (08:49)
[2020-02-26] MEDS: Ascorbic Acid 500 mg Chewable Tablet PO SCH (08:50)
[2020-02-26] MEDS: Insulin Glargine 10 UNITS in Pre-Filled Syringe 1 EACH SC SCH (08:50)
[2020-02-26] MEDS: predniSONE 20 MG TAB PO SCH ×2 (08:50→21:06)
[2020-02-26] MEDS: Enoxaparin Sodium 40 MG/0.4 ML SYRINGE SC SCH ×2 (08:50→21:06)
[2020-02-26] MEDS: hydrALAZINE 25 MG TAB PER TUBE SCH ×4 (08:52→21:09)
[2020-02-26] MEDS: Polyethylene Glycol 3350 17 GM Packet PER TUBE SCH (08:58)
--- NOTE | 2020-02-26 11:40 | PRG ---
DATE OF SERVICE: 02/26/2020 SUBJECTIVE: This morning, she is doing better. OBJECTIVE: VITAL SIGNS: Temperature 98, pulse 108, blood pressure 149/79, sats 100% on room air. CHEST: No wheezing, no crackles. CARDIAC: Normal S1, S2. ASSESSMENT: Morbid obesity, respiratory failure, duffy positive pneumonia. PLAN: Continue aggressive care. Consider transferring to skilled unit. Hopefully, she passes a swallow test. In the meantime, continue feedings as tolerated. Job ID: [id number]
--- NOTE | 2020-02-26 12:36 | PDOC.PALPN ---
Palliative Progress Note - Subjective Sleeping, arousable, but returns to sleep state. Unable to do a ROS. Sister at bedside. Appears to be free from distress. - Objective Vital Signs: Vital Signs - Most Recent Temp Pulse Resp BP Pulse Ox 97.9 F 77 18 133/77 97 02/26/20 11:00 02/26/20 11:00 02/26/20 11:00 02/26/20 11:00 02/26/20 11:00 - Physical Exam Constitutional: ill appearing HEENT: EOMI, moist MMs Respiratory: no wheezing, unlabored breathing, diminished lung sound Cardiovascular: RRR Gastrointestinal: incontinent Genitourinary: luna catheter Musculoskeletal: diffuse muscle atrophy Neurology: no focal deficits Skin: bruising, fragile - Assessment (1) Palliative care encounter Code(s): Z51.5 - ENCOUNTER FOR PALLIATIVE CARE Current Visit: Yes Status: Acute (2) Pneumonia due to COVID-19 virus Code(s): U07.1 - COVID-19; J12.89 - OTHER VIRAL PNEUMONIA Current Visit: Yes Status: Acute (3) Respiratory failure with hypoxia Code(s): J96.91 - RESPIRATORY FAILURE, UNSPECIFIED WITH HYPOXIA Current Visit: Yes Status: Acute Qualifiers: Chronicity: acute Qualified Code(s): J96.01 - Acute respiratory failure with hypoxia (4) Sepsis Code(s): A41.9 - SEPSIS, UNSPECIFIED ORGANISM Current Visit: Yes Status: Acute Qualifiers: Sepsis acute organ dysfunction status: with acute organ dysfunction Severe sepsis acute organ dysfunction type: acute respiratory failure Acute respiratory failure type: with hypoxia Severe sepsis shock status: without septic shock (5) DM2 (diabetes mellitus, type 2) Current Visit: Yes Status: Chronic Qualifiers: Diabetes mellitus marine oil terminal superintendent insulin use: with marine oil terminal superintendent use Diabetes mellitus complication status: with hyperglycemia Qualified Code(s): E11.65 - Type 2 diabetes mellitus with hyperglycemia; Z79.4 - MCC (current) use of insulin (6) Obesity Code(s): E66.9 - OBESITY, UNSPECIFIED Current Visit: Yes Status: Chronic Qualifiers: Obesity classification: adult class 3 (BMI >= 40) Body mass index: BMI 40.0-44.9 - Plan Plan: Palliative care has continued to support family and revisit Goal of Care. Please also see Palliative Care notes in note section. Prior to Covid patient swam with water aerobics three times a week, walked her dog daily. Is a retired nurse and loves to read. and family hopeful for patient to return to her baseline status. Swallow study, currently on feedings via NG. Continue with aggressive measures and therapies. Hopeful for rehab. Palliative Care will sign off as Goal of Care has been established. Thank you for this very appropriate consult. If we can be of assistance in the future please re consult our team. [40] minutes spent on this encounter with >50% of the time in counseling and coordination of care. - ROS Non Response: due to mental status Constitutional: weakness
--- NOTE | 2020-02-26 17:04 | PDOC.HOSPP ---
- Subjective Encounter Date: 02/26/20 Encounter Time: 11:15 Subjective: pt up in bed no complains - Objective Vital Signs & Weight: Vital Signs (12 hours) Temp Pulse Pulse Pulse Resp BP BP 02/26/20 16:00 98.1 F 77 20 02/26/20 14:15 77 114/77 02/26/20 11:00 97.9 F 77 18 02/26/20 09:30 108 H 110 H 145/79 H 02/26/20 08:52 108 H 145/79 H 02/26/20 08:49 108 H 145/79 H 02/26/20 08:00 02/26/20 07:33 97.8 F 108 H 20 02/26/20 05:23 98.2 F 103 H 18 BP BP Pulse Ox Pulse Ox Pulse Ox 02/26/20 16:00 144/68 H 93 L 02/26/20 14:15 02/26/20 11:00 133/77 97 02/26/20 09:30 96/64 96 92 L 02/26/20 08:52 02/26/20 08:49 02/26/20 08:00 95 02/26/20 07:33 135/77 95 02/26/20 05:23 122/86 94 L Weight Admit Weight 235 lb Weight 245 lb 5.992 oz Most Recent Monitor Data Heart Rate from ECG 79 NIBP 157/61 NIBP BP-Mean 93 Respiration from ECG 15 SpO2 97 I&O: 02/25/20 02/26/20 02/27/20 06:59 06:59 06:59 Intake Total 1650 850 90 Output Total 2750 1900 Balance -1100 -1050 90 Result Diagrams: 02/23/20 03:35 02/23/20 03:35 Additional Labs: Accuchecks 02/26/20 02/26/20 02/26/20 16:22 11:09 05:22 POC Glucose 313 H 233 H 326 H 02/25/20 21:00 POC Glucose 266 H Hospitalist ROS - Review of Systems Cardiovascular: denies: chest pain, palpitations, orthopnea, paroxysmal noc. dyspnea, edema, light headedness, other Gastrointestinal: denies: nausea, vomiting, abdominal pain, diarrhea, co nstipation, melena, hematochezia, other Genitourinary: denies: dysuria, frequency, incontinence, hematuria, retention, other - Medication Medications: Active Medications Generic Name Dose Route Start Last Admin Trade Name Freq PRN Reason Stop Dose Admin Acetaminophen 650 mg 01/31/20 21:30 02/26/20 05:52 Acetaminophen 325 Mg Tab PO 650 mg Q4H PRN Administration Headache/Fever/Mild Pain (1-3) Albuterol Sulfate 2 puff 02/25/20 07:00 02/26/20 13:15 Albuterol 200 Puff (6.7gm Inhaler) INH 2 puff [id number] ARLEY Administration Alogliptin Benzoate 12.5 mg 02/25/20 09:00 02/26/20 08:49 Alogliptin 6.25 Mg Tab PO 12.5 mg DAILY [facility] Administration Amlodipine Besylate 10 mg 02/19/20 21:00 02/25/20 20:30 Amlodipine 10 Mg Tab PO 10 mg HS [facility] Administration Ascorbic Acid 1,000 mg 02/01/20 09:00 02/26/20 08:50 Ascorbic Acid 500 Mg Chewable Tablet PO 1,000 mg DAILY [facility] Administration Atenolol 50 mg 02/01/20 09:00 02/26/20 08:49 Atenolol 50 Mg Tab PO 50 mg DAILY [facility] Administration Dextrose/Water 25 gm 01/31/20 22:19 02/18/20 21:33 Dextrose 50% Abboject 50 Ml Syringe SLOW IVP 25 gm PRN PRN Administration Hypoglycemia Enoxaparin Sodium 40 mg 02/14/20 21:00 02/26/20 08:50 Enoxaparin Sodium 40 Mg/0.4 Ml Syringe SC 40 mg 0900,2100 [facility] Administration Famotidine 20 mg 02/01/20 09:00 02/26/20 08:49 Famotidine 20 Mg Tab PO 20 mg BID [facility] Administration Guaifenesin/Dextromethorphan 15 ml 01/31/20 21:30 02/02/20 02:04 Guaifenesin Dm 100-10/5 Ml Udcup PO 15 ml Q4H PRN Administration Cough Hydralazine HCl 50 mg 02/10/20 21:00 02/26/20 14:15 Hydralazine 25 Mg Tab PER TUBE Not Given QID [facility] Hydralazine HCl 25 mg 02/23/20 15:45 02/24/20 16:15 Hydralazine 25 Mg Tab PO 25 mg Q6H PRN Administration SBP > 180 Insulin Glargine 10 units/ 0.1 mls @ 0 mls/hr 02/25/20 09:00 02/26/20 08:50 Miscellaneous Medication SC 0.1 mls QAM [facility] Administration Insulin Human Lispro 0 units 01/31/20 22:19 02/25/20 22:37 Humalog 300 Units/3 Ml Vial SC 3 unit .BEDTIME SLIDING SC PRN Administration Bedtime Correctional Scale Insulin Human Lispro 0 units 02/10/20 19:11 02/26/20 11:55 Humalog 300 Units/3 Ml Vial SC 6 unit .AGGRESSIVE SLIDING PRN Administration Aggressive Correctional Scale Labetalol HCl 10 mg 02/19/20 19:05 02/24/20 12:20 Labetalol Hcl 100 Mg/20 Ml Vial SLOW IVP 10 mg Q4H PRN Administration SBP Greater Than 180 Levothyroxine Sodium 100 mcg 02/22/20 06:00 02/26/20 05:52 Levothyroxine Sodium 100 Mcg Tab PO 100 mcg 0600 [facility] Administration Mometasone Furoate/Formoterol Fumar 2 puff 02/21/20 18:30 02/26/20 06:42 Mometasone 200 Mcg/Formoterol 5 Mcg 120 Puff Inhaler INH 2 puff BID-RT [facility] Administration Nystatin 0 gm 02/16/20 19:36 02/16/20 20:19 Nystatin Powder 15 Gm Bot TOP 1 applic BID PRN Administration Topical Irritations Polyethylene Glycol 17 gm 02/13/20 09:00 02/26/20 08:58 Polyethylene Glycol 3350 17 Gm Packet PER TUBE 17 gm DAILY [facility] Administration Prednisone 20 mg 02/21/20 09:00 02/26/20 08:50 Prednisone 20 Mg Tab PO 20 mg BID [facility] Administration Rosuvastatin Calcium 10 mg 02/01/20 09:00 02/26/20 08:49 Rosuvastatin 10 Mg Tab PO 10 mg DAILY [facility] Administration - Exam Neck: negative: supple, symmetric, no JVD, no thyromegaly, no lymphadenopathy, no carotid bruit, JVD Heart: negative: RRR, no murmur, no gallops, no rubs, normal peripheral pulses, irregular, diminshed peripheral pulses, murmur present, II/IV, III/IV Respiratory: negative: CTAB, no wheezes, no rales, no ronchi, normal chest expansion, no tachypnea, normal percussion, rales, rhonchi, tachypneic, wheezes Hosp A/P - Plan This is a 74-year-old female patient admitted with Covid pneumonia. She was admitted on 01/31/2020 and intubated on 02/02/2020. She has a history of SVT/atrial tachycardia. She was successfully extubated on 02/17/2018 Continue close monitoring in unit. Currently having a Dobbhoff tube passed on account of failing swallow evaluation She is making gradual improvements. Pneumonia due to Covid Completed remdesivir Continue Solu-Medrol and anticoagulation. Changed to oral steroids. Pulmonology following. 02/23 repeat Covid test was negative. Acute hypoxic respiratory failure Secondary to above Successfully extubated. Continue monitoring -Right apical pneumothorax improving on today's chest x-ray, hard to appreciate Hypertension Continue as needed labetalol/hydralazine Monitor BP Sepsis due to Covid resolved Diabetes mellitus Correctional insulin Blood glucose stable Continue monitoring Depression Continue home meds Morbid obesity Hypothyroidism Continue levothyroxine Dyslipidemia Thrombocytopenia Stablepatient up to 90s today Monitor VT prophylaxison Lovenox CODE STATUSfull code. Palliative care on board Dispositionpending improvement, likely will need rehab 02/23 patient failed her swallow eval she will be reevaluated probably on Wednesday. We will add some Lantus since her blood sugars are really uncontrolled. Restart her home medications 02/24 patient will be reevaluated by speech in a.m. will require her Dobbhoff to be removed prior to discharge. She most likely will go to custodial facility. Continue to titrate insulin. 02/25 patient failed her swallow eval. Patient most likely will go to custodial facility. Case management notified.
[2020-02-26] MEDS: Amlodipine 10 MG TAB PO SCH (21:05)
[2020-02-26] MEDS: HumaLOG 300 UNITS/3 ML VIAL SC SCH (21:18)
[2020-02-27] MEDS: Albuterol 200 PUFF (6.7GM INHALER) INH SCH ×3 (00:11→14:26)
[2020-02-27] MEDS: Levothyroxine Sodium 100 MCG TAB PO SCH (07:03)
[2020-02-27] MEDS: Mometasone 200 MCG/Formoterol 5 MCG 120 PUFF INHALER INH SCH (07:34)
[2020-02-27] MEDS: HumaLOG 300 UNITS/3 ML VIAL SC PRN ×3 (07:35→18:19)
[2020-02-27] MEDS: Rosuvastatin 10 MG TAB PO SCH (08:54)
[2020-02-27] MEDS: hydrALAZINE 25 MG TAB PER TUBE SCH (08:54)
[2020-02-27] MEDS: Famotidine 20 MG TAB PO SCH (08:54)
[2020-02-27] MEDS: Alogliptin 6.25 MG TAB PO SCH (08:54)
[2020-02-27] MEDS: Insulin Glargine 10 UNITS in Pre-Filled Syringe 1 EACH SC SCH (08:55)
[2020-02-27] MEDS: Enoxaparin Sodium 40 MG/0.4 ML SYRINGE SC SCH (08:55)
[2020-02-27] MEDS: Atenolol 50 MG TAB PO SCH (08:55)
[2020-02-27] MEDS: Ascorbic Acid 500 mg Chewable Tablet PO SCH (08:55)
[2020-02-27] MEDS: predniSONE 20 MG TAB PO SCH (08:55)
[2020-02-27] MEDS: HumaLOG 300 UNITS/3 ML VIAL SC SCH ×2 (08:56→14:27)
[2020-02-27] MEDS: Polyethylene Glycol 3350 17 GM Packet PER TUBE SCH (09:01)
--- NOTE | 2020-02-27 11:08 | PRG ---
DATE OF SERVICE: 02/27/2020 SUBJECTIVE: Eber Mata is a 74-year-old female, who was extubated with prolonged respiratory failure secondary to duffy positive pneumonia. OBJECTIVE: VITAL SIGNS: She is now breathing adequately on room air, 95% sats. Blood pressure 140/75, temperature 97, and respiratory rate 18. She is still a full code. CHEST: No wheezing, no crackles. CARDIAC: Normal S1 and S2. No gallops. ABDOMEN: No masses. IMPRESSION: Respiratory failure, severe deconditioning, diabetes, duffy positive pneumonia, pneumothorax, and dysphagia. She is unable to swallow in the next several days. I would recommend a PEG for her. Otherwise, she is probably going to aspirate with her feeding tube in place. She is probably going to be transferred to a [facility] facility. Decrease the steroids to once a day since the blood sugars are still elevated. Pulmonary is going to follow at a distance. Call if needed. Job ID: [id number]
[2020-02-27 14:31] LABS: #Lymphocytes 0.7 thou/uL (1.20-3.40); #Monocytes 0.3 thou/uL (0.11-0.59); #Neutrophils 5.1 thou/uL (1.40-6.50); %Eosinophils 0.8 % (0.0-10.0); %Lymphocytes 11.1 % (21.0-51.0); %Monocytes 4.6 % (0.0-10.0); %Neutrophils 83.5 % (42.0-75.0); Hemoglobin 10.6 g/dL (12.0-16.0); Mean Corpuscular HGB CONC 33.3 g/dL (32.0-36.0); Mean Corpuscular Hemoglobin 31.3 pg (27.0-31.0); Mean Corpuscular Volume 93.8 fL (78.0-98.0); Platelet Count 128 thou/uL (130-400); RBC Distribution Width 17.4 % (11.5-14.5); White Blood Cell (WBC) Count 6.1 thou/uL (4.8-10.8)
[2020-02-27 14:57] LABS: Anion Gap 17 mmol/L (10-20); BUN (Urea Nitrogen) 22 mg/dL (9.8-20.1); Calc. Creatinine Clearance 136 mL/min (70-130); Calcium 8.6 mg/dL (7.8-10.44); Carbon Dioxide 23 mmol/L (23-31); Chloride 98 mmol/L (98-107); Glucose 286 mg/dL (83-110); Potassium 4.7 mmol/L (3.5-5.1); Sodium 133 mmol/L (136-145)
[2020-02-27 15:23] VITALS: BP 142/75; TEMP 98
[2020-02-27] MEDS ORDERED: hydrALAZINE 25 MG TAB PER TUBE SCH (21:00)
[2020-02-28] MEDS ORDERED: predniSONE 20 MG TAB PO SCH (09:00)
--- NOTE | 2020-02-29 14:50 | PDOC.DS.DS ---
Provider - Provider Date of Admission: 01/31/20 21:03 Date of Discharge: 02/27/20 Admitting Provider: Mika Farias MD Consultations: Infectious Disease, Pulmonary Primary Care Physician: Geoff Olivas MD Course - Hospital Course Hospital Course: Patient is a 74-year-old female with past medical history of diabetes and hypothyroidism who initially presented to the hospital with fever. She was noted to be Covid positive. Patient was started on remdesivir infectious disease was consulted. Patient also was started on steroids and initially was on nasal cannula. Patient's hospital course was complicated with worsening shortness of breath and was placed on BiPAP. She was then intubated on 02/01. Patient continued to be treated while being intubated. She was extubated on February 17. Patient had an Dobbhoff for her tube feeds. She continued to improve on nectar thick pured diet. [facility] Resuscitation Status: 01/31/20 21:30 Resuscitation Status Routine Co-Sign Provider: Resuscitation Status: FULL: Full Resuscitation Discussed with: patient - Labs Lab Results: 02/27/20 14:21 02/27/20 14:21 Abnormal Lab Results - Last 48 hrs 02/27/20 14:21: Sodium 133 L, BUN 22 H - Physical Exam Vitals: Weight Admit Weight 235 lb Weight 245 lb 5.992 oz Most Recent Monitor Data Heart Rate from ECG 79 NIBP 157/61 NIBP BP-Mean 93 Respiration from ECG 15 SpO2 97 Physical Exam: The patient was seen and examined on the day of discharge. Problem - Discharge Plan Assessment: Sepsis Acute hypoxic respiratory failure Covid Diabetes Right apical pneumothorax Hypertension Obesity Hypothyroidism Plan - Discharge Medications Prescriptions: hydrALAZINE [Apresoline] 25 mg PO BID #60 tab Home Medications: Medication Instructions Recorded Confirmed Type Atenolol 1 tab PO DAILY 02/01/20 02/27/20 History Cetirizine HCl [Zyrtec] 1 tab PO DAILY PRN 02/01/20 02/27/20 History Citalopram [CeleXA] 1 tab PO DAILY 02/01/20 02/27/20 History Furosemide [Lasix] 1 tab PO PRN PRN 02/01/20 02/27/20 History Glimepiride 1 tab PO BID 02/01/20 02/27/20 History Levothyroxine Sodium 1 tab PO DAILY 02/01/20 02/27/20 History Melatonin 1 tab PO HS 02/01/20 02/27/20 History Rosuvastatin [Crestor] 1 tab PO DAILY 02/01/20 02/27/20 History metFORMIN HCl [Metformin HCl] 1 tab PO BID 02/01/20 02/27/20 History sitaGLIPtin Phosphate [Januvia] 5 mg PO DAILY 02/01/20 02/27/20 History Albuterol Sulfate [Proventil Hfa] 2 puff INH [id number] aer 02/27/20 02/27/20 Rx Amlodipine [Norvasc] 10 mg PO HS #0 tab 02/27/20 02/27/20 Rx Ascorbic Acid [Vitamin C] 1,000 mg PO DAILY tab 02/27/20 02/27/20 Rx Enoxaparin Sodium [Lovenox] 40 mg SC 0900,2100 syringe 02/27/20 02/27/20 Rx Famotidine [Pepcid] 20 mg PO BID tab 02/27/20 02/27/20 Rx HumaLOG [HumaLOG Vial] 5 units SC .AGGRESSIVE SLIDING 02/27/20 02/27/20 Rx PRN #1 vial Insulin Glargine [Lantus Vial] 10 units SC QAM vial 02/27/20 02/27/20 Rx Mometasone/Formoterol 200/5 2 puff INH BID-RT inh 02/27/20 02/27/20 Rx [Dulera 200 Mcg/5 Mcg Inhaler] Polyethylene Glycol 3350 [Miralax] 17 gm PER TUBE DAILY PRN pk 02/27/20 1 04/29/19 Rx hydrALAZINE [Apresoline] 25 mg PO BID #60 tab 02/27/20 02/27/20 Rx predniSONE 20 mg PO DAILY tab 02/27/20 02/27/20 Rx Allergies: latex Allergy (Verified 06/02/19 19:00) naloxone HCl [From Adrian HUGHES] Allergy (Verified 06/02/19 19:00) Penicillins Allergy (Verified 06/02/19 19:00) pentazocine HCl [From Adrian NX] Allergy (Verified 06/02/19 19:00) - Discharge Instructions Discharge Instructions:: Please taper prednisone it was changed from prednisone 20mg twice a day to 20mg daily today. Please check blood work CBC while patient is on lovenox. Activity:: Activity as Tolerated Nourishment:: Tube Feeding Diet Additional Dietary Instructions:: pt was able to tolerate pureed diet. Therapies:: Home Health, Physical Therapy, Speech Therapy - Follow up Plan Referrals: Roman Cote MD [Active] - Geoff Olivas MD [Primary Care Provider] - Vincenzo De La Garza MD [Active] - Disposition: [facility]AC[facility] Quality - Care Measures CORE MEASURES:: N/A
--- NOTE | 2020-03-01 18:40 | PQF ---
Dear : Josephine Zuniga Date 03/02/2020 Please exercise your independent, professional judgment in responding to the clarification form. Clinical indicators are provided on the bottom of this form for your review Can you please further clarify the specificity of Encephalopathy? Please check appropriate box(es): [ x] Metabolic Encephalopathy [ ] Toxic Encephalopathy [ ] Hypoxic Encephalopathy [ ] Septic Encephalopathy [ ] Other diagnosis please specify [ ] Unable to determine Physician Signature: Date/Time: For continuity of documentation, please document condition throughout progress notes and discharge summary. Thank You. To be completed by CDI/Coding staff for physician review: Present Clinical Indicators - Signs / Symptoms / Labs Results and Location in Medical Record [ x ] Acute respiratory failure H and P pg.3 [ x ] Sepsis H and P pg.4 [ x ] Encephalopathy PN 02/02 [ x ] She has respiratory drive at least 30 time a min Consult Dr. Cote 02/01 [ x ] ROS unobtainable due to metal status Hospiatlist PN 02/03 pg.2 [ x ] ON high flow, RR 42, HR 100 90% 40L/95% Event note 02/01 [ x ] Patient somnolent, confused, follow command Event note 02/01 Present Risk Factors Results and Location in Medical Record [ x ] 74 years old H and P pg.1 [ x ] COVID Pneumonia H and P pg.3 [ x ] Obesity Palliative care pg.1 Present Treatments Results and Location in Medical Record [ x ] Neuro checks / neurology consult [ x ] Pulmonary Consult Dr. Cote 02/01 [ x ] Mechanical ventilation Patient care [ x ] Oxygen therapy Patient care [ x ] Bipap Event note 02/01 [ x ] IV antibiotics MAR [ x ] IV Fluids MAR CDS/[employer]ior [employer]ant Signature: Orlando Warner Phone #: ext [phone] Date 03/02/2020 This is a permanent part of the Medical Record [facility]
== END 2020-02-27 18:32 | disposition swing bed (61) | DRG 870 ==
LOC: ERS 19:52 → T4-B 21:03 → CCU 02-02 04:57 → IMCU/EMU 02-21 20:13 → T4-B 02-24 18:23
PROVIDERS: ADMIT Internal Medicine; ATTEND Emergency Medicine
PROC: 8E0ZXY6 Isolation (ICD-10-PCS; principal; 2020-01-31)
PROC: XW033E5 Introduction of Remdesivir Anti-infective into Peripheral Vein, Percutaneous Approach, New Technology Group 5 (ICD-10-PCS; 2020-02-01)
PROC: 5A09457 Assistance with Respiratory Ventilation, 24-96 Consecutive Hours, Continuous Positive Airway Pressure (ICD-10-PCS; 2020-02-02)
PROC: 5A1955Z Respiratory Ventilation, Greater than 96 Consecutive Hours (ICD-10-PCS; 2020-02-04)
PROC: 0BH17EZ Insertion of Endotracheal Airway into Trachea, Via Natural or Artificial Opening (ICD-10-PCS; 2020-02-04)
DX: A41.89 Other specified sepsis (principal); U07.1 COVID-19; J12.89 Other viral pneumonia; J96.01 Acute respiratory failure with hypoxia; G93.41 Metabolic encephalopathy; Z68.41 Body mass index [BMI] 40.0-44.9, adult; F33.9 Major depressive disorder, recurrent, unspecified; J93.9 Pneumothorax, unspecified; Z51.5 Encounter for palliative care; R65.20 Severe sepsis without septic shock; I89.0 Lymphedema, not elsewhere classified; M19.90 Unspecified osteoarthritis, unspecified site; E03.9 Hypothyroidism, unspecified; E78.5 Hyperlipidemia, unspecified; E78.00 Pure hypercholesterolemia, unspecified; I87.2 Venous insufficiency (chronic) (peripheral); I10 Essential (primary) hypertension; E11.65 Type 2 diabetes mellitus with hyperglycemia; E66.01 Morbid (severe) obesity due to excess calories; Z96.653 Presence of artificial knee joint, bilateral; M62.81 Muscle weakness (generalized); D69.6 Thrombocytopenia, unspecified; R13.10 Dysphagia, unspecified; Z88.0 Allergy status to penicillin; Z91.040 Latex allergy status; Z88.5 Allergy status to narcotic agent; Z88.8 Allergy status to other drugs, medicaments and biological substances; Z79.84 Long term (current) use of oral hypoglycemic drugs; Z79.890 Hormone replacement therapy; Z79.899 Other long term (current) drug therapy; Z90.49 Acquired absence of other specified parts of digestive tract; Z90.710 Acquired absence of both cervix and uterus; Z98.51 Tubal ligation status; Z87.891 Personal history of nicotine dependence; Z85.3 Personal history of malignant neoplasm of breast; Z78.1 Physical restraint status
CPT/HCPCS: 36415; 36416; 36600; 71045; 74018; 80048; 80076; 81001; 82728; 82805; 83735; 84443; 84484; 85025; 85060; 85379; 86140; 86769; 87635; 93005; 93010; 94002; 94003; 94150; 94640; 94660; 94664; 99285; J0692; J1100; J1630; J1650; J1815; J1940; J2060; J2704; J2920; J3010; J3475; J3480; J3490; J7050; J7512; J7620; U0002; U0003

== ENCOUNTER 2023-04-16 14:06 | Outpatient (CLI) | payer MEDICARE | END 2023-04-16 14:07 | disposition home or self-care (01) | LOC: BICMAMMO 14:06 | PROVIDERS: ATTEND Registered Nurse | DX: Z12.31 Encounter for screening mammogram for malignant neoplasm of breast (principal); Z13.820 Encounter for screening for osteoporosis; Z78.0 Asymptomatic menopausal state; M81.0 Age-related osteoporosis without current pathological fracture; M85.851 Other specified disorders of bone density and structure, right thigh; Z80.3 Family history of malignant neoplasm of breast; Z85.3 Personal history of malignant neoplasm of breast; Z98.890 Other specified postprocedural states | CPT/HCPCS: 77063; 77067; 77080 ==